=== PATIENT | female | born 1945 | race Caucasian/White ===

== ENCOUNTER 2018-06-15 17:35 | Inpatient (IN) | payer MEDICARE, BC ==
[~2018-06-15] VITALS: Ht 160 cm; Wt 63.3 kg
[~2018-06-15 17:35] MED LIST: ASPI-482 PO; CYAN10005 PO; CYCL5TAB PO; EZET10TA18 PO; FISH1CAP PO; LOSA50TA7 PO; METF850T8 PO; OMEP40CA5 PO; SAXA5TAB PO; TRAM50TA PO
[2018-06-15] MEDS ORDERED: ONDANSETRON PF 4 MG/2 ML VIAL. IV ONE (20:15)
[2018-06-15] MEDS ORDERED: KETOROLAC 15 MG/ML VIAL. IV ONE (20:15)
[2018-06-15] MEDS ORDERED: FAMOTIDINE 20 MG/2 ML VIAL IVP ONE (20:15)
[2018-06-15] MEDS ORDERED: IV NORMAL SALINE 1000ML BAG 1,000 ML IV ONE (20:15)
[2018-06-15 20:20] LABS: BASO % 0 % (0-3); EOS # 0.1 x10^3/uL (0.0-0.7); EOS % 1 % (0-3); HEMATOCRIT 36.1 % (36.0-47.0); HEMOGLOBIN 12.6 g/dL (12.0-15.5); LYMPH # 0.4 x10^3/uL (1.0-4.8); LYMPH % 4 % (24-48); MEAN CORPUSCULAR HEMOGLOBIN 31 pg (25-35); MEAN CORPUSCULAR HGB CONC 35 g/dL (31-37); MEAN CORPUSCULAR VOLUME 87 fL (79-100); MONO # 0.6 x10^3/uL (0.0-1.1); MONO % 6 % (0-9); NEUT # 8.8 x10^3uL (1.8-7.7); NEUT % 89 % (31-73); PLATELET COUNT 263 x10^3/uL (140-400); RED BLOOD COUNT 4.13 x10^6/uL (3.50-5.40); RED CELL DISTRIBUTION WIDTH 13.3 % (11.5-14.5)
[2018-06-15 20:28] LABS: CALCIUM 9.6 mg/dL (8.5-10.1); CREATININE 1.2 mg/dL (0.6-1.0); GFR 44.3; POTASSIUM 4.7 mmol/L (3.5-5.1)
[2018-06-15 20:29] LABS: PROTHROMBIN TIME PATIENT 13.3 SEC (11.7-14.0)
[2018-06-15 20:34] LABS: ALBUMIN 3.9 g/dL (3.4-5.0); ALBUMIN/GLOBULIN RATIO 1.1 (1.0-1.7); MAGNESIUM 1.7 mg/dL (1.8-2.4); TOTAL BILIRUBIN 0.3 mg/dL (0.2-1.0); TOTAL PROTEIN 7.5 g/dL (6.4-8.2)
[2018-06-15 20:42] LABS: CREATINE KINASE 36 U/L (26-192)
--- NOTE | 2018-06-15 20:51 | RAD ---
PQRS Compliance statement: One or more of the following individualized dose reduction techniques were utilized for this examination: 1. Automated exposure control. 2. Adjustment of the mA and/or kV according to patient size. 3. Use of iterative reconstruction technique. Indication:rt flank and rlq pain, vomiting, no priors TECHNIQUE: CT abdomen and pelvis without IV contrast with multiplanar reformats. COMPARISON: None FINDINGS: Limited evaluation of solid abdominal and pelvic organs due to lack of IV contrast. Heart is normal in size. No pericardial or pleural effusion. Motion artifact is seen in the lung bases limiting optimal evaluation. Mild subsegmental atelectasis in the left lung base. Noncontrast appearance of the liver, spleen, gallbladder, pancreas, adrenals are within normal limits. No nephrolithiasis or hydronephrosis. No free pelvic fluid or ascites. No bowel obstruction. Normal appendix. No right lower quadrant inflammatory changes. Anteverted uterus. Urinary bladder demonstrates no radiopaque stones. No suspicious bony lesion. There is prominent lobulated appearance of the left interpolar kidney. IMPRESSION: Limited evaluation of solid abdominal and pelvic organs due to lack of IV contrast. 1. No nephrolithiasis or hydronephrosis. 2. No bowel obstruction. Normal appendix. No right lower quadrant inflammatory changes. 3. Lobulated appearance of the interpolar left kidney, nonspecific. Underlying mass should be ruled out. Nonemergent ultrasound of the kidneys recommended. Electronically signed by: David Tubbs DO (06/15/2018 8:47 PM) [facility]
[2018-06-15 21:20] LABS: % BANDS 5 % (0-9); % LYMPHS 1 % (24-48); % MONOS 5 % (0-10); % SEGS 89 % (35-66); PLT ESTIMATE ADEQUATE (ADEQUATE)
--- NOTE | 2018-06-15 22:03 | PHYS DOC ---
Past Medical History Past Medical History: Unknown Past Surgical History: Tonsillectomy Additional Past Surgical Histo: BREAST BIOPSY Alcohol Use: None Drug Use: None Adult General Chief Complaint Chief Complaint: NAUSEA/VOMITING/DIARRHA HPI HPI Patient is a 73 year old [f__sex] who presents with [] Review of Systems Review of Systems Constitutional: Denies fever or chills [] Eyes: Denies change in visual acuity, redness, or eye pain [] HENT: Denies nasal congestion or sore throat [] Respiratory: Denies cough or shortness of breath [] Cardiovascular: No additional information not addressed in HPI [] GI: Denies abdominal pain, nausea, vomiting, bloody stools or diarrhea [] : Denies dysuria or hematuria [] Musculoskeletal: Denies back pain or joint pain [] Integument: Denies rash or skin lesions [] Neurologic: Denies headache, focal weakness or sensory changes [] Endocrine: Denies polyuria or polydipsia [] All other systems were reviewed and found to be within normal limits, except as documented in this note. Current Medications Current Medications Current Medications Medications (Trade) Dose Ordered Sig/John Start Time Stop Time Status Last Admin Dose Admin Ceftriaxone Sodium 50 ml @ 100 mls/hr 1X ONCE 06/15/18 23:00 06/15/18 23:29 Famotidine (Pepcid Vial) 20 mg 1X ONCE 06/15/18 20:15 06/15/18 20:18 DC 06/15/18 21:00 20 MG Ketorolac Tromethamine (Toradol 15mg Vial) 15 mg 1X ONCE 06/15/18 20:15 06/15/18 20:18 DC 06/15/18 21:00 15 MG Ondansetron HCl (Zofran) 4 mg 1X ONCE 06/15/18 20:15 06/15/18 20:18 DC 06/15/18 20:59 4 MG Sodium Chloride 1,000 ml @ 1,000 mls/hr 1X ONCE 06/15/18 20:15 06/15/18 21:14 DC 06/15/18 20:59 1,000 MLS/HR Allergies Allergies Allergies Coded Allergies Type Severity Reaction Last Updated Verified mercury (elemental) Allergy Intermediate 05/13/17 Yes Physical Exam Physical Exam Constitutional: Well developed, well nourished, no acute distress, non-toxic appearance. [] HENT: Normocephalic, atraumatic, bilateral external ears normal, oropharynx moist, no oral exudates, nose normal. [] Eyes: PERRLA, EOMI, conjunctiva normal, no discharge. [] Neck: Normal range of motion, no tenderness, supple, no stridor. [] Cardiovascular:Heart rate regular rhythm, no murmur [] Lungs & Thorax: Bilateral breath sounds clear to auscultation [] Abdomen: Bowel sounds normal, soft, no tenderness, no masses, no pulsatile masses. [] Skin: Warm, dry, no erythema, no rash. [] Back: No tenderness, no CVA tenderness. [] Extremities: No tenderness, no cyanosis, no clubbing, ROM intact, no edema. [] Neurologic: Alert and oriented X 3, normal motor function, normal sensory function, no focal deficits noted. [] Psychologic: Affect normal, judgement normal, mood normal. [] Current Patient Data Vital Signs Vital Signs Date Time Temp Pulse Resp B/P (MAP) Pulse Ox O2 Delivery O2 Flow Rate FiO2 06/15/18 19:51 98.7 87 18 138/80 (99) 99 Room Air 98.7 Lab Values Laboratory Tests Test 06/15/18 19:32 06/15/18 19:49 Urine Collection Type Unknown Urine Color Yellow Urine Clarity Clear Urine pH 5.5 Urine Specific [place] 1.025 Urine Protein Negative mg/dL (NEG-TRACE) Urine Glucose (UA) Negative mg/dL (NEG) Urine Ketones (Stick) 40 mg/dL (NEG) Urine Blood Negative (NEG) Urine Nitrite Negative (NEG) Urine Bilirubin Negative (NEG) Urine Urobilinogen Dipstick 0.2 mg/dL (0.2 mg/dL) Urine Leukocyte Esterase Negative (NEG) Urine RBC 0 /HPF (0-2) Urine WBC 5-10 /HPF (0-4) Urine Squamous Epithelial Cells Few /LPF Urine Bacteria 0 /HPF (0-FEW) Urine Hyaline Casts Few /HPF Urine Mucus Mod /LPF White Blood Count 10.0 x10^3/uL (4.0-11.0) Red Blood Count 4.13 x10^6/uL (3.50-5.40) Hemoglobin 12.6 g/dL (12.0-15.5) Hematocrit 36.1 % (36.0-47.0) Mean Corpuscular Volume 87 fL (79-100) Mean Corpuscular Hemoglobin 31 pg (25-35) Mean Corpuscular Hemoglobin Concent 35 g/dL (31-37) Red Cell Distribution Width 13.3 % (11.5-14.5) Platelet Count 263 x10^3/uL (140-400) Neutrophils (%) (Auto) 89 % (31-73) H Lymphocytes (%) (Auto) 4 % (24-48) L Monocytes (%) (Auto) 6 % (0-9) Eosinophils (%) (Auto) 1 % (0-3) Basophils (%) (Auto) 0 % (0-3) Neutrophils # (Auto) 8.8 x10^3uL (1.8-7.7) H Lymphocytes # (Auto) 0.4 x10^3/uL (1.0-4.8) L Monocytes # (Auto) 0.6 x10^3/uL (0.0-1.1) Eosinophils # (Auto) 0.1 x10^3/uL (0.0-0.7) Basophils # (Auto) 0.0 x10^3/uL (0.0-0.2) Segmented Neutrophils % 89 % (35-66) H Band Neutrophils % 5 % (0-9) Lymphocytes % 1 % (24-48) L Monocytes % 5 % (0-10) Platelet Estimate Adequate (ADEQUATE) Prothrombin Time 13.3 SEC (11.7-14.0) Prothrombin Time INR 1.1 (0.8-1.1) PTT 24 SEC (24-38) Sodium Level 130 mmol/L (136-145) L Potassium Level 4.7 mmol/L (3.5-5.1) Chloride Level 93 mmol/L (98-107) L Carbon Dioxide Level 22 mmol/L (21-32) Anion Gap 15 (6-14) H Blood Urea Nitrogen 28 mg/dL (7-20) H Creatinine 1.2 mg/dL (0.6-1.0) H Estimated GFR (Cockcroft-Gault) 44.3 BUN/Creatinine Ratio 23 (6-20) H Glucose Level 157 mg/dL (70-99) H Calcium Level 9.6 mg/dL (8.5-10.1) Magnesium Level 1.7 mg/dL (1.8-2.4) L Total Bilirubin 0.3 mg/dL (0.2-1.0) Aspartate Amino Transferase (AST) 15 U/L (15-37) Alanine Aminotransferase (ALT) 22 U/L (14-59) Alkaline Phosphatase 75 U/L (46-116) Creatine Kinase 36 U/L (26-192) Creatine Kinase MB (Mass) 0.7 ng/mL (0.0-3.6) Creatine Kinase MB Relative Index % (0-4) Total Protein 7.5 g/dL (6.4-8.2) Albumin 3.9 g/dL (3.4-5.0) Albumin/Globulin Ratio 1.1 (1.0-1.7) Lipase 76 U/L (73-393) Laboratory Tests 06/15/18 19:49 Laboratory Tests 06/15/18 19:49 EKG EKG [] Radiology/Procedures Radiology/Procedures PROCEDURE: CT ABDOMEN PELVIS WO CONTRAST PQRS Compliance statement: One or more of the following individualized dose reduction techniques were utilized for this examination: 1. Automated exposure control. 2. Adjustment of the mA and/or kV according to patient size. 3. Use of iterative reconstruction technique. Indication:rt flank and rlq pain, vomiting, no priors TECHNIQUE: CT abdomen and pelvis without IV contrast with multiplanar reformats. COMPARISON: None FINDINGS: Limited evaluation of solid abdominal and pelvic organs due to lack of IV contrast. Heart is normal in size. No pericardial or pleural effusion. Motion artifact is seen in the lung bases limiting optimal evaluation. Mild subsegmental atelectasis in the left lung base. Noncontrast appearance of the liver, spleen, gallbladder, pancreas, adrenals are within normal limits. No nephrolithiasis or hydronephrosis. No free pelvic fluid or ascites. No bowel obstruction. Normal appendix. No right lower quadrant inflammatory changes. Anteverted uterus. Urinary bladder demonstrates no radiopaque stones. No suspicious bony lesion. There is prominent lobulated appearance of the left interpolar kidney. IMPRESSION: Limited evaluation of solid abdominal and pelvic organs due to lack of IV contrast. 1. No nephrolithiasis or hydronephrosis. 2. No bowel obstruction. Normal appendix. No right lower quadrant inflammatory changes. 3. Lobulated appearance of the interpolar left kidney, nonspecific. Underlying mass should be ruled out. Nonemergent ultrasound of the kidneys recommended. Electronically signed by: David Tubbs DO (06/15/2018 8:47 PM) [facility] Course & Med Decision Making Course & Med Decision Making Pertinent Labs and Imaging studies reviewed. (See chart for details) [] Dragon Disclaimer Dragon Disclaimer This electronic medical record was generated, in whole or in part, using a voice recognition dictation system. Departure Departure Impression: Primary Impression: Right flank pain Additional Impressions: Hyponatremia Acute renal insufficiency History of UTI Disposition: ADMITTED INPATIENT Admitting Physician: Dontrell Curtis Condition: STABLE Referrals: DONTRELL CURTIS MD (PCP) Problem Qualifiers MIRLANDE CHAKRABORTY DO Jun 15, 2018 22:03
[2018-06-15 22:12] LABS: BILIRUBIN,URINE NEGATIVE (NEG); CLARITY,URINE CLEAR; COLOR,URINE YELLOW; NITRITE,URINE NEGATIVE (NEG); PH,URINE 5.5; PROTEIN,URINE NEGATIVE (NEG-TRACE); UROBILINOGEN,URINE 0.2 mg/dL (0.2 mg/dL)
[2018-06-15 22:18] LABS: BACTERIA,URINE 0 /HPF (0-FEW); HYALINE CASTS, URINE FEW /HPF; RBC,URINE 0 /HPF (0-2); SQUAMOUS EPITHELIAL CELL,UR FEW /LPF
[2018-06-15] MEDS ORDERED: ONDANSETRON PF 4 MG/2 ML VIAL. IV PRN (22:30)
[2018-06-15 23:47] VITALS: BP 139/62
[2018-06-16] MEDS: ACETAMINOPHEN 325 MG TABLET. PO PRN ×2 (00:40→20:50)
[2018-06-16] MEDS ORDERED: C.DIFF MED SCREEN BY RX. MC ONE (02:15)
[2018-06-16 03:00] VITALS: BP 102/48
[2018-06-16] MEDS ORDERED: MULT1TAB52 PO (03:44)
[2018-06-16] MEDS ORDERED: CALC600T4 PO (03:44)
[2018-06-16] MEDS ORDERED: OMEG1CAP43 PO (03:44)
[2018-06-16 07:00] VITALS: BP 127/53
[2018-06-16] MEDS ORDERED: CHOL4POW11 PO (07:41)
[2018-06-16] MEDS ORDERED: MAGNESIUM SULFATE 1GM 100 ML IV ONE (10:30)
[2018-06-16] MEDS ORDERED: PANTOPRAZOLE 40 MG TABLET.DR. PO SCH (10:30)
[2018-06-16 11:00] VITALS: BP 145/56
[2018-06-16] MEDS ORDERED: DEXTROSE 50% 25 GM / 50ML DISP.SYRIN. IV PRN (11:00)
--- NOTE | 2018-06-16 11:05 | PDOC ---
Provider Note Provider Note Pt seen.H&P dictated. #[id number]. JAMES CURTIS MD Jun 16, 2018 11:05
[2018-06-16] MEDS: IV NORMAL SALINE 1000ML BAG 1,000 ML IV SCH ×2 (11:07→20:47)
[2018-06-16] MEDS: OMEGA-3 FATTY ACIDS/FISH OIL 1,000 MG CAPSULE. PO SCH (11:08)
[2018-06-16] MEDS: CALCIUM CARBONATE 500 MG TABLET PO SCH (11:09)
[2018-06-16] MEDS: MULTIVITAMIN with MINERAL TABLET. PO SCH (11:09)
[2018-06-16] MEDS: LOSARTAN POTASSIUM 50 MG TABLET. PO SCH (11:09)
[2018-06-16] MEDS: ASPIRIN ENTERIC COATED 81 MG TABLET.DR. PO SCH (11:09)
[2018-06-16] MEDS: EZETIMIBE 10 MG TABLET. PO SCH (11:10)
[2018-06-16] MEDS: metFORMIN 850 MG TABLET PO SCH ×2 (11:10→17:57)
--- NOTE | 2018-06-16 11:28 | HP ---
ADMIT DATE: 06/15/2018 LOCATION: [facility]. REASON FOR ADMISSION TO THE HOSPITAL: Right flank pain, urinary tract infection, not improving. HISTORY OF PRESENT ILLNESS: The patient is a 73-year-old female who was seen for a urinary tract infection 3 days ago in the office, was given Bactrim. She was not feeling well. She was having more pain in the right flank going down to the groin area, shaky, and nausea, vomiting, came to the Emergency Room. Sodium was 130. The patient was dehydrated, was given IV fluids, Rocephin and admitted to the hospital. CT scan shows some haziness in the right kidney area. PAST MEDICAL HISTORY: Has history of diabetes, hypertension, hyperlipidemia, and GERD. PAST SURGICAL HISTORY: Breast biopsy, which was negative. FAMILY HISTORY: Positive for diabetes, heart disease, Alzheimer dementia. SOCIAL HISTORY: No history of smoking, alcohol, or drug abuse. The patient is not , lives with her brother. REVIEW OF SYSTEMS: Cardiac frias, no chest pain. Has some flank pain, has nausea and vomiting, no diarrhea, no fever. Rest of the 14-system was reviewed and negative. ALLERGIES: AMOXIL, AMPICILLIN, MERCURY. THE PATIENT IS ALLERGIC TO STATINS. SHE CANNOT TOLERATE KALYAN INHIBITORS TOO. MEDICATIONS AT HOME: The patient is on aspirin 81 mg daily, calcium with vitamin D twice a day, Questran 1 packet 4 times daily, Zetia 10 mg daily, losartan 50 mg daily, metformin 850 mg 3 times daily, multivitamin daily, omega fish oil daily, omeprazole 40 mg daily. PHYSICAL EXAMINATION: GENERAL: Not in distress. VITAL SIGNS: At the time of admission show temperature 97, pulse 88, respirations 20, blood pressure 133/59, 99 on room air. HEENT: Head is atraumatic. Pupils equal. Oral cavity: No congestion. NECK: Supple. Thyroid not enlarged. JVD not elevated. CHEST: Symmetrical. CARDIOVASCULAR: S1, S2. LUNGS: Clear. ABDOMEN: Soft, some slight right flank pain, no tenderness. Bowel sounds present, no mass palpable. EXTERNAL GENITALIA: No Barajas. RECTAL: Deferred. EXTREMITIES: No calf tenderness. NEUROLOGIC: Cranial nerves intact. Power 5/5 in all extremities. LABORATORY DATA: Shows a white count of 10, hemoglobin 12, platelets 263. INR is 1.1. Electrolytes are sodium 130, potassium 4.7, chloride 93, bicarbonate 22, anion gap 15, BUN 28, creatinine 1.2, glucose 157, magnesium 1.7. LFTs were normal. Lipase was normal. Urine shows 5-10 wbc's, negative for nitrites and esterase. CT of the abdomen and pelvis, no hydronephrosis, no kidney stone, lobulated appearance of the left kidney. FINAL IMPRESSION: 1. Flank pain. 2. Urinary tract infection, treated as outpatient, not improving. 3. Nausea, vomiting. 4. Dehydration. 5. Hyponatremia. 6. Diabetes. PLAN: At this time, admit to hospital, hydrate with IV fluids, start on IV Rocephin. Urine cultures, ultrasound of the kidneys and see how the patient's condition improves. JAMES CURTIS MD DR: ISELA/meliton JOB#: [id number] / [id number]
--- NOTE | 2018-06-16 11:35 | RAD ---
Chest, 2 views, 06/16/2018: HISTORY: Right lower chest pain The heart size and pulmonary vascularity are normal. No pulmonary infiltrate is seen. There is no evidence of pleural fluid or pneumothorax. Minimal spurring is present in the spine. IMPRESSION: No acute cardiopulmonary abnormality is detected. Electronically signed by: Ed Gaviria MD (06/16/2018 11:32 AM) [facility]
[2018-06-16 11:49] LABS: CALCIUM 8.9 mg/dL (8.5-10.1); GFR 54.7; POTASSIUM 4.1 mmol/L (3.5-5.1)
[2018-06-16] MEDS: INSULIN LISPRO 300 UNITS/3 ML INSULN.PEN. SQ SCH ×2 (12:00→17:00)
[2018-06-16] MEDS ORDERED: CHOLESTYRAMINE/ASPARTAME 4 GM PACKET PO SCH (12:30)
[2018-06-16 15:00] VITALS: BP 142/58
--- NOTE | 2018-06-16 16:38 | EKG ---
[facility] [address] [place] [address] Test Date: 2018-06-16 Test Time: 16:31:47 Pat Name: EPRFECTO DOTY Department: Room: [facility] Gender: F Child Advocate: JEOVANY : 1945 Requested By: JAMES CURTIS Order Number: [id number] Reading MD: Stuart Barajas Measurements Intervals [place] Rate: 77 P: 62 TX: 152 QRS: 27 QRSD: 84 T: 54 QT: 372 QTc: 423 Interpretive Statements SINUS RHYTHM LOW LIMB LEAD VOLTAGE Electronically Signed On 06-17-2018 11:28:11 CDT by Stuart Barajas
[2018-06-16] MEDS: cefTRIAXone IV Push 1 GM VIAL. IVP SCH (17:58)
[2018-06-16 19:00] VITALS: BP 125/60
[2018-06-16] MEDS: LACTOBACILLUS RHAMNOSUS GG 1 CAPSULE. PO SCH (20:46)
[2018-06-16] MEDS ORDERED: FAMOTIDINE 20 MG TABLET. PO SCH (21:00)
[2018-06-16 23:00] VITALS: BP 116/66
[2018-06-17 03:00] VITALS: BP 107/57
[2018-06-17 07:00] VITALS: BP 142/67
[2018-06-17] MEDS: INSULIN LISPRO 300 UNITS/3 ML INSULN.PEN. SQ SCH ×3 (08:00→16:50)
--- NOTE | 2018-06-17 08:41 | RAD ---
EXAM: Renal sonogram. HISTORY: Lobulated left renal cortex on CT dated 06/15/2018. TECHNIQUE: Sonographic imaging of both kidneys was performed. COMPARISON: CT dated 06/15/2018. FINDINGS: The right kidney measures 9.3 cm [id number]. The left kidney measures 10.9 cm [id number]. There is a 2.3 cm hypoechoic mass within the lateral lower mid zone of the left kidney measuring 2.2 x 2.2 x 1.8 cm. There is no hydronephrosis. The bladder is unremarkable. IMPRESSION: 1. 2.2 cm left renal mass. This can be characterized with a dedicated renal protocol CT or MRI. 2. Otherwise, unremarkable renal sonogram. Electronically signed by: Racheal Ennis MD (06/17/2018 8:37 AM) [facility]
[2018-06-17] MEDS: ASPIRIN ENTERIC COATED 81 MG TABLET.DR. PO SCH (08:57)
[2018-06-17] MEDS: metFORMIN 850 MG TABLET PO SCH ×3 (08:57→18:14)
[2018-06-17] MEDS: CALCIUM CARBONATE 500 MG TABLET PO SCH (08:57)
[2018-06-17] MEDS: OMEGA-3 FATTY ACIDS/FISH OIL 1,000 MG CAPSULE. PO SCH (08:57)
[2018-06-17] MEDS: LACTOBACILLUS RHAMNOSUS GG 1 CAPSULE. PO SCH ×2 (08:57→20:48)
[2018-06-17] MEDS: MULTIVITAMIN with MINERAL TABLET. PO SCH (08:57)
[2018-06-17] MEDS: EZETIMIBE 10 MG TABLET. PO SCH (08:58)
[2018-06-17] MEDS: LOSARTAN POTASSIUM 50 MG TABLET. PO SCH (08:58)
--- NOTE | 2018-06-17 09:28 | PDOC ---
PROGRESS NOTES Subjective Subjective nauseated today Objective Objective Vital Signs Date Time Temp Pulse Resp B/P (MAP) Pulse Ox O2 Delivery O2 Flow Rate FiO2 06/17/18 08:58 70 107/57 06/17/18 07:00 97.9 18 97 Room Air 97.9 Intake and Output 06/17/18 07:00 Intake Total 3720 ml Output Total 1850 ml Balance 1870 ml Intake Oral 2820 ml IV Total 900 ml Output Urine Total 1850 ml Physical Exam Abdomen: Normal bowel sounds, Soft Heart: Regular rate, Normal S1, Normal S2 Extremities: No clubbing, No cyanosis General: Alert, Cooperative HEENT: Atraumatic Lungs: Clear to auscultation MUSCULOSKELETAL: No deformity Neck: Supple Neuro: Normal speech Psych/Mental Status: Mental status NL Skin: No breakdown Diagnosis Problem List Problems Medical Problems: (1) Acute renal insufficiency Status: Acute (2) History of UTI Status: Acute (3) Right flank pain Status: Acute Assessment Assessment Problems Medical Problems: (1) Acute renal insufficiency Status: Acute (2) History of UTI Status: Acute (3) Right flank pain Status: Acute FINAL IMPRESSION: 1. Flank pain Rt 2. Urinary tract infection, treated as outpatient, not improving. 3. Nausea, vomiting. 4. Dehydration. 5. Hyponatremia. 6. Diabetes. PLAN: sono kidney showed left kidney mass 2.5 cm. urine c/s pending on Rocephin wbc normal.Na131 improving. renal consult for lt kidney mass. GI consult gastritis ,start on protonix. At this time, admit to hospital, hydrate with IV fluids, start on IV Rocephin. Urine cultures, ultrasound of the kidneys and see how the patient's condition improves. Plan Plan of Care Problems Medical Problems: (1) Acute renal insufficiency Status: Acute (2) History of UTI Status: Acute (3) Right flank pain Status: Acute Comment Review of Relevant I have reviewed the following items julianna (where applicable) has been applied. Labs Laboratory Tests Test 06/16/18 11:30 06/16/18 11:39 06/16/18 16:38 06/16/18 20:08 Sodium Level 131 mmol/L (136-145) Potassium Level 4.1 mmol/L (3.5-5.1) Chloride Level 96 mmol/L (98-107) Carbon Dioxide Level 25 mmol/L (21-32) Anion Gap 10 (6-14) Blood Urea Nitrogen 20 mg/dL (7-20) Creatinine 1.0 mg/dL (0.6-1.0) Estimated GFR (Cockcroft-Gault) 54.7 Glucose Level 173 mg/dL (70-99) Calcium Level 8.9 mg/dL (8.5-10.1) Glucose (Fingerstick) 176 mg/dL (70-99) 115 mg/dL (70-99) 155 mg/dL (70-99) Test 06/17/18 07:27 Glucose (Fingerstick) 123 mg/dL (70-99) Medications Current Medications Aspirin (Ecotrin) 81 mg DAILY PO Last administered on 06/17/18at 08:57; Start at 10:30 Calcium Carbonate/ Glycine (Oscal) 1,000 mg DAILY PO Last administered on at 08:57; Start 06/16/18 at 10:30 Ceftriaxone Sodium 1 gm/ Dextrose 50 ml @ 100 mls/hr Q24H IV ; Start 06/16/18 at 18:15; Status UNV Ceftriaxone Sodium (Rocephin) 1 gm Q24H IVP Last administered on 06/16/18at 17: 58; Start 06/16/18 at 18:00 Cholestyramine Resin (Questran Light) 4 gm BIDPCLD PO ; Start 06/16/18 at 12:30 ; Stop 06/16/18 at 12:30; Status DC Dextrose (Dextrose 50%-Water Syringe) 12.5 gm PRN Q15MIN PRN IV SEE COMMENTS; Start 06/16/18 at 11:00 EZETIMIBE (Zetia) 10 mg DAILY PO Last administered on 06/17/18at 08:58; Start at 10:30 Famotidine (Pepcid) 20 mg QHS PO Last administered on 06/16/18at 20:47; Start at 21:00 Fish Oil (Fish Oil) 1,000 mg DAILY PO Last administered on 06/17/18at 08:57; Start 06/16/18 at 10:30 Insulin Human Lispro (HumaLOG) 0-7 UNITS TIDWMEALS SQ ; Start 06/16/18 at 12:00 Lactobacillus Rhamnosus (Culturelle) 1 cap BID PO Last administered on at 08:57; Start 06/16/18 at 21:00 Losartan Potassium (Cozaar) 50 mg DAILY PO Last administered on 06/17/18at 08:58 ; Start 06/16/18 at 10:30 Magnesium Sulfate/ Dextrose 100 ml @ 100 mls/hr 1X ONCE IV Last administered on 06/16/18at 11:08; Start 06/16/18 at 10:30; Stop 06/16/18 at 11:29; Status DC Metformin HCl (Glucophage) 850 mg TIDWMEALS PO Last administered on 06/17/18at 08:57; Start 06/16/18 at 12:00 Multivitamins (Thera M Plus) 1 tab DAILY PO Last administered on 06/17/18at 08: 57; Start 06/16/18 at 10:30 Pantoprazole Sodium (Protonix) 40 mg DAILYAC PO Last administered on 06/16/18at 11:09; Start 06/16/18 at 10:30; Stop 06/16/18 at 11:24; Status DC Sodium Chloride 1,000 ml @ 75 mls/hr [id number] IV Last administered on at 20:47; Start 06/16/18 at 10:15 Vitals/I & O Vital Sign - Last 24 Hours 06/16/18 06/16/18 06/16/18 06/16/18 11:00 11:09 15:00 19:00 Temp 97.9 97.8 98.3 97.9 97.8 98.3 Pulse 84 81 80 75 Resp 18 B/P (MAP) 145/56 (85) 127/53 142/58 (86) 125/60 (81) Pulse Ox 93 94 93 O2 Delivery Room Air Room Air Room Air 06/16/18 06/17/18 06/17/18 06/17/18 23:00 03:00 07:00 08:58 Temp 98.0 98.1 97.9 98.0 98.1 97.9 Pulse 71 70 71 70 Resp 18 B/P (MAP) 116/66 (83) 107/57 (74) 142/67 (92) 107/57 Pulse Ox 94 93 97 O2 Delivery Room Air Room Air Room Air Intake and Output 06/16/18 06/16/18 06/17/18 15:00 23:00 07:00 Intake Total 1220 ml 1100 ml 1400 ml Output Total 550 ml 600 ml 700 ml Balance 670 ml 500 ml 700 ml JAMES CURTIS MD Jun 17, 2018 09:28
[2018-06-17 09:35] LABS: ALBUMIN 3.2 g/dL (3.4-5.0); CALCIUM 8.5 mg/dL (8.5-10.1); CREATININE 0.7 mg/dL (0.6-1.0); GFR 82.5; POTASSIUM 3.8 mmol/L (3.5-5.1); TOTAL BILIRUBIN 0.2 mg/dL (0.2-1.0); TOTAL PROTEIN 6.5 g/dL (6.4-8.2)
--- NOTE | 2018-06-17 09:59 | PDOC2 ---
UROLOGY CONSULT Date of Consult Date of Consult DATE: 06/17/18 TIME: 09:56 Reason for Consult Reason for Consult: right flank pain, kidney mass on the left. Identification/Chief Complaint Chief Complaint right flank pain, kidney mass on the left Source Source: Caregiver, Chart review, Patient History of Present Illness Reason for Visit: This 73-year-old female was seen for a urinary tract infection 3 days ago by her PCP and was given Bactrim. She presented to the ER last night for pain in the right flank going down to the groin area. She also reports being shaky, and having nausea, vomiting, came to the Emergency Room. In the ER she was given IV fluids, Rocephin and admitted. CT scan shows some haziness in the right kidney area and a follow up US was obtained, which shows 2.2 left renal mass and no other findings. She denies a history of kidney problems or stones. Also, despite the fact that she had a UTI, she denies having dysuria, hematuria or difficulty emptying her bladder. She only knew she had UTI because her PCP got a urine sample. She has never seen a urologist to her knowledge. She reports her pain as being on the right, constant and about 4-5/10. It is much better today after medication. Her appetite today is not very good; she has only been able to eat a small amount of jello. Past Medical History Cardiovascular: HTN, Hyperlipidemia CENTRAL NERVOUS SYSTEM: Other GI: GERD Musculoskeletal: Osteoarthritis Endocrine: Diabetes Family History Family History: Alzheimer's Disease, Diabetes, Heart Disease, Hypertension, Stroke, Other Social History No ALCOHOL: none Drugs: None Current Medications Current Medications Current Medications Aspirin (Ecotrin) 81 mg DAILY PO Last administered on 06/17/18at 08:57; Start at 10:30 Calcium Carbonate/ Glycine (Oscal) 1,000 mg DAILY PO Last administered on at 08:57; Start 06/16/18 at 10:30 Ceftriaxone Sodium 1 gm/ Dextrose 50 ml @ 100 mls/hr Q24H IV ; Start 06/16/18 at 18:15; Status UNV Ceftriaxone Sodium (Rocephin) 1 gm Q24H IVP Last administered on 06/16/18at 17: 58; Start 06/16/18 at 18:00 Cholestyramine Resin (Questran Light) 4 gm BIDPCLD PO ; Start 06/16/18 at 12:30 ; Stop 06/16/18 at 12:30; Status DC Dextrose (Dextrose 50%-Water Syringe) 12.5 gm PRN Q15MIN PRN IV SEE COMMENTS; Start 06/16/18 at 11:00 EZETIMIBE (Zetia) 10 mg DAILY PO Last administered on 06/17/18at 08:58; Start at 10:30 Famotidine (Pepcid) 20 mg QHS PO Last administered on 06/16/18at 20:47; Start at 21:00 Fish Oil (Fish Oil) 1,000 mg DAILY PO Last administered on 06/17/18at 08:57; Start 06/16/18 at 10:30 Insulin Human Lispro (HumaLOG) 0-7 UNITS TIDWMEALS SQ ; Start 06/16/18 at 12:00 Lactobacillus Rhamnosus (Culturelle) 1 cap BID PO Last administered on at 08:57; Start 06/16/18 at 21:00 Losartan Potassium (Cozaar) 50 mg DAILY PO Last administered on 06/17/18at 08:58 ; Start 06/16/18 at 10:30 Magnesium Sulfate/ Dextrose 100 ml @ 100 mls/hr 1X ONCE IV Last administered on 06/16/18at 11:08; Start 06/16/18 at 10:30; Stop 06/16/18 at 11:29; Status DC Metformin HCl (Glucophage) 850 mg TIDWMEALS PO Last administered on 06/17/18at 08:57; Start 06/16/18 at 12:00 Multivitamins (Thera M Plus) 1 tab DAILY PO Last administered on 06/17/18at 08: 57; Start 06/16/18 at 10:30 Pantoprazole Sodium (Protonix) 40 mg 1X ONCE PO ; Start 06/17/18 at 10:00; Stop 06/17/18 at 10:01 Pantoprazole Sodium (Protonix) 40 mg DAILYAC PO Last administered on 06/16/18at 11:09; Start 06/16/18 at 10:30; Stop 06/16/18 at 11:24; Status DC Pantoprazole Sodium (Protonix) 40 mg DAILYAC PO ; Start 9/18/18 at 07:30 Sodium Chloride 1,000 ml @ 75 mls/hr [id number] IV Last administered on at 20:47; Start 06/16/18 at 10:15 Allergies Allergies: Coded Allergies: amoxicillin (Verified Allergy, Intermediate, 06/16/18) pt claimed she felt she could hardly swallow ampicillin (Verified Allergy, Intermediate, 06/16/18) pt doesnt remember/know her rxn. claimed her doctor told her shes allergic to ampicillin mercury (elemental) (Verified Allergy, Intermediate, 05/13/17) ROS Review Of Systems: CONSTITUTIONAL: No fever or chills EYES: No recent changes SKIN: No rash or itching CARDIOVASCULAR: No chest pain, syncope, palpitations, or edema RESPIRATORY: No SOB or cough GASTROINTESTINAL: + nausea, vomiting, abdominal pain, + flank pain NEUROLOGICAL: No headaches or weakness ENDOCRINE: No cold or heat intolerance GENITOURINARY: No urgency or frequency of urination MUSCULOSKELETAL: No back pain or joint pain LYMPHATICS: No enlarged lymph nodes PSYCHIATRIC: No anxiety or depression Physical Exam Physical Exam: General: Pleasant, no acute distress, well groomed Eyes: conjunctiva anicteric, eyes full range of motion ENT: moist oral mucosa, normal dentition Neck: Trachea midline, no masses Respiratory: unlabored breathing, not using accessory muscles, no crackles or wheezes Cardiovascular: Regular rate and rhythm, no peripheral edema Abdomen: nontender, nondistended, no hepatosplenomegaly, no masses Skin: no rashes or skin lesions on visualized skin Psych: normal mood, affect. Alert and oriented x 3. Vitals VITALS Vital Signs Date Time Temp Pulse Resp B/P (MAP) Pulse Ox O2 Delivery O2 Flow Rate FiO2 06/17/18 08:58 70 107/57 06/17/18 07:00 97.9 18 97 Room Air 97.9 Labs Labs Laboratory Tests Test 06/15/18 19:32 06/15/18 19:49 06/16/18 07:28 06/16/18 11:30 Urine Collection Type Unknown Urine Color Yellow Urine Clarity Clear Urine pH 5.5 Urine Specific Harshaw 1.025 Urine Protein Negative mg/dL (NEG-TRACE) Urine Glucose (UA) Negative mg/dL (NEG) Urine Ketones (Stick) 40 mg/dL (NEG) Urine Blood Negative (NEG) Urine Nitrite Negative (NEG) Urine Bilirubin Negative (NEG) Urine Urobilinogen Dipstick 0.2 mg/dL (0.2 mg/dL) Urine Leukocyte Esterase Negative (NEG) Urine RBC 0 /HPF (0-2) Urine WBC 5-10 /HPF (0-4) Urine Squamous Epithelial Cells Few /LPF Urine Bacteria 0 /HPF (0-FEW) Urine Hyaline Casts Few /HPF Urine Mucus Mod /LPF White Blood Count 10.0 x10^3/uL (4.0-11.0) Red Blood Count 4.13 x10^6/uL (3.50-5.40) Hemoglobin 12.6 g/dL (12.0-15.5) Hematocrit 36.1 % (36.0-47.0) Mean Corpuscular Volume 87 fL (79-100) Mean Corpuscular Hemoglobin 31 pg (25-35) Mean Corpuscular Hemoglobin Concent 35 g/dL (31-37) Red Cell Distribution Width 13.3 % (11.5-14.5) Platelet Count 263 x10^3/uL (140-400) Neutrophils (%) (Auto) 89 % (31-73) Lymphocytes (%) (Auto) 4 % (24-48) Monocytes (%) (Auto) 6 % (0-9) Eosinophils (%) (Auto) 1 % (0-3) Basophils (%) (Auto) 0 % (0-3) Neutrophils # (Auto) 8.8 x10^3uL (1.8-7.7) Lymphocytes # (Auto) 0.4 x10^3/uL (1.0-4.8) Monocytes # (Auto) 0.6 x10^3/uL (0.0-1.1) Eosinophils # (Auto) 0.1 x10^3/uL (0.0-0.7) Basophils # (Auto) 0.0 x10^3/uL (0.0-0.2) Segmented Neutrophils % 89 % (35-66) Band Neutrophils % 5 % (0-9) Lymphocytes % 1 % (24-48) Monocytes % 5 % (0-10) Platelet Estimate Adequate (ADEQUATE) Prothrombin Time 13.3 SEC (11.7-14.0) Prothromb Time International Ratio 1.1 (0.8-1.1) Activated Partial Thromboplast Time 24 SEC (24-38) Sodium Level 130 mmol/L (136-145) 131 mmol/L (136-145) Potassium Level 4.7 mmol/L (3.5-5.1) 4.1 mmol/L (3.5-5.1) Chloride Level 93 mmol/L (98-107) 96 mmol/L (98-107) Carbon Dioxide Level 22 mmol/L (21-32) 25 mmol/L (21-32) Anion Gap 15 (6-14) 10 (6-14) Blood Urea Nitrogen 28 mg/dL (7-20) 20 mg/dL (7-20) Creatinine 1.2 mg/dL (0.6-1.0) 1.0 mg/dL (0.6-1.0) Estimated GFR (Cockcroft-Gault) 44.3 54.7 BUN/Creatinine Ratio 23 (6-20) Glucose Level 157 mg/dL (70-99) 173 mg/dL (70-99) Calcium Level 9.6 mg/dL (8.5-10.1) 8.9 mg/dL (8.5-10.1) Magnesium Level 1.7 mg/dL (1.8-2.4) Total Bilirubin 0.3 mg/dL (0.2-1.0) Aspartate Amino Transf (AST/SGOT) 15 U/L (15-37) Alanine Aminotransferase (ALT/SGPT) 22 U/L (14-59) Alkaline Phosphatase 75 U/L (46-116) Creatine Kinase 36 U/L (26-192) Creatine Kinase MB (Mass) 0.7 ng/mL (0.0-3.6) Creatine Kinase MB Relative Index % (0-4) Total Protein 7.5 g/dL (6.4-8.2) Albumin 3.9 g/dL (3.4-5.0) Albumin/Globulin Ratio 1.1 (1.0-1.7) Lipase 76 U/L (73-393) Glucose (Fingerstick) 97 mg/dL (70-99) Test 06/16/18 11:39 06/16/18 16:38 06/16/18 20:08 06/17/18 07:27 Glucose (Fingerstick) 176 mg/dL (70-99) 115 mg/dL (70-99) 155 mg/dL (70-99) 123 mg/dL (70-99) Test 06/17/18 07:40 Sodium Level 131 mmol/L (136-145) Potassium Level 3.8 mmol/L (3.5-5.1) Chloride Level 97 mmol/L (98-107) Carbon Dioxide Level 23 mmol/L (21-32) Anion Gap 11 (6-14) Blood Urea Nitrogen 10 mg/dL (7-20) Creatinine 0.7 mg/dL (0.6-1.0) Estimated GFR (Cockcroft-Gault) 82.5 BUN/Creatinine Ratio 14 (6-20) Glucose Level 134 mg/dL (70-99) Calcium Level 8.5 mg/dL (8.5-10.1) Total Bilirubin 0.2 mg/dL (0.2-1.0) Aspartate Amino Transf (AST/SGOT) 13 U/L (15-37) Alanine Aminotransferase (ALT/SGPT) 20 U/L (14-59) Alkaline Phosphatase 61 U/L (46-116) Total Protein 6.5 g/dL (6.4-8.2) Albumin 3.2 g/dL (3.4-5.0) Albumin/Globulin Ratio 1.0 (1.0-1.7) Laboratory Tests Test 06/16/18 11:30 06/16/18 11:39 06/16/18 16:38 06/16/18 20:08 Sodium Level 131 mmol/L (136-145) Potassium Level 4.1 mmol/L (3.5-5.1) Chloride Level 96 mmol/L (98-107) Carbon Dioxide Level 25 mmol/L (21-32) Anion Gap 10 (6-14) Blood Urea Nitrogen 20 mg/dL (7-20) Creatinine 1.0 mg/dL (0.6-1.0) Estimated GFR (Cockcroft-Gault) 54.7 Glucose Level 173 mg/dL (70-99) Calcium Level 8.9 mg/dL (8.5-10.1) Glucose (Fingerstick) 176 mg/dL (70-99) 115 mg/dL (70-99) 155 mg/dL (70-99) Test 06/17/18 07:27 06/17/18 07:40 Glucose (Fingerstick) 123 mg/dL (70-99) Sodium Level 131 mmol/L (136-145) Potassium Level 3.8 mmol/L (3.5-5.1) Chloride Level 97 mmol/L (98-107) Carbon Dioxide Level 23 mmol/L (21-32) Anion Gap 11 (6-14) Blood Urea Nitrogen 10 mg/dL (7-20) Creatinine 0.7 mg/dL (0.6-1.0) Estimated GFR (Cockcroft-Gault) 82.5 BUN/Creatinine Ratio 14 (6-20) Glucose Level 134 mg/dL (70-99) Calcium Level 8.5 mg/dL (8.5-10.1) Total Bilirubin 0.2 mg/dL (0.2-1.0) Aspartate Amino Transf (AST/SGOT) 13 U/L (15-37) Alanine Aminotransferase (ALT/SGPT) 20 U/L (14-59) Alkaline Phosphatase 61 U/L (46-116) Total Protein 6.5 g/dL (6.4-8.2) Albumin 3.2 g/dL (3.4-5.0) Albumin/Globulin Ratio 1.0 (1.0-1.7) Images Images IMPRESSION: 1. 2.2 cm left renal mass. This can be characterized with a dedicated renal protocol CT or MRI. 2. Otherwise, unremarkable renal sonogram. Assessment/Plan Assessment/Plan No dysuria, hematuria. Urine taken in ER shows no signs of infection. Can find no urologic cause for right flank pain. Suspect musculoskeletal causes. 2.2 cm left renal mass-Will review films with supervising physician for further recommendations. A repeat CT with contrast may be in order at a later date. Will secure an office appointment for her for follow up. Kidney function normal (inspector raw quartz 0.7, BUN 10) Will follow while in house. KIMBERLY WALKER APRN Jun 17, 2018 09:59
[2018-06-17] MEDS ORDERED: PANTOPRAZOLE 40 MG TABLET.DR. PO ONE (10:00)
[2018-06-17] MEDS: ACETAMINOPHEN 325 MG TABLET. PO PRN (10:04)
[2018-06-17 11:00] VITALS: BP 154/65
--- NOTE | 2018-06-17 11:45 | PDOC2 ---
GI CONSULT Reason For Consult: N/v, abd pain, EGD HPI: HPI: 73 y/o female admitted over the weekend w/ right flank pain and concern for unresolved UTI. Tells ms a couple weeks of right flank, RUQ pain, and maybe some RLQ pain - comes and goes, can be sharp, might be aggravated by eating but not always. Some associated nausea w/ vomiting on that recurred this morning after eating jello. Decreased appetite in general. H/o heartburn on omeprazole for 3-5 years (first 40mg QHS, now 20mg BID - with pills/breakfast and before bed), typical symptom is burning in chest (not RUQ pain). Occasional dysphagia w/ pills - sometimes pass with water, sometimes coughs back up - this has not occurred for some time. No diarrhea, constipation, or bleeding including hematemesis, hematochezia, or melena. No GB, liver, or pancreas history. Believes last colonoscopy in 2009 w/ Dr. Tubbs showed hemorrhoids. Takes ASA 81mg QD. Has also been taking ibuprofen since pain began. Hgb, LFTs, and lipase WNL. Left renal mass on imaging, urology following. PMH: PMH: HTN, HLD, essential tremor, GERD, OA, DM, right breast biopsy, tonsillectomy, bilateral cataract removal FH: Family History: Other (father and brother had "throat problems") Social History: Smoke: No ALCOHOL: none Drugs: None ROS: GEN: Denies fevers, chills, sweats HEENT: Denies blurred vision, sore throat CV: Denies chest pain RESP: Denies shortness of air, cough GI: Per HPI : Denies hematuria, dysuria ENDO: ?weight loss NEURO: Denies confusion, dizziness MSK: Denies weakness, joint pain/swelling SKIN: Denies jaundice, pruritus Vitals: Vitals: Vital Signs Date Time Temp Pulse Resp B/P (MAP) Pulse Ox O2 Delivery O2 Flow Rate FiO2 06/17/18 08:58 70 107/57 06/17/18 07:00 97.9 18 97 Room Air 97.9 Labs: Labs: Laboratory Tests Test 06/16/18 11:30 06/16/18 11:39 06/16/18 16:38 06/16/18 20:08 Sodium Level 131 mmol/L (136-145) Potassium Level 4.1 mmol/L (3.5-5.1) Chloride Level 96 mmol/L (98-107) Carbon Dioxide Level 25 mmol/L (21-32) Anion Gap 10 (6-14) Blood Urea Nitrogen 20 mg/dL (7-20) Creatinine 1.0 mg/dL (0.6-1.0) Estimated GFR (Cockcroft-Gault) 54.7 Glucose Level 173 mg/dL (70-99) Calcium Level 8.9 mg/dL (8.5-10.1) Glucose (Fingerstick) 176 mg/dL (70-99) 115 mg/dL (70-99) 155 mg/dL (70-99) Test 06/17/18 07:27 06/17/18 07:40 06/17/18 11:12 Glucose (Fingerstick) 123 mg/dL (70-99) 151 mg/dL (70-99) Sodium Level 131 mmol/L (136-145) Potassium Level 3.8 mmol/L (3.5-5.1) Chloride Level 97 mmol/L (98-107) Carbon Dioxide Level 23 mmol/L (21-32) Anion Gap 11 (6-14) Blood Urea Nitrogen 10 mg/dL (7-20) Creatinine 0.7 mg/dL (0.6-1.0) Estimated GFR (Cockcroft-Gault) 82.5 BUN/Creatinine Ratio 14 (6-20) Glucose Level 134 mg/dL (70-99) Calcium Level 8.5 mg/dL (8.5-10.1) Total Bilirubin 0.2 mg/dL (0.2-1.0) Aspartate Amino Transf (AST/SGOT) 13 U/L (15-37) Alanine Aminotransferase (ALT/SGPT) 20 U/L (14-59) Alkaline Phosphatase 61 U/L (46-116) Total Protein 6.5 g/dL (6.4-8.2) Albumin 3.2 g/dL (3.4-5.0) Albumin/Globulin Ratio 1.0 (1.0-1.7) Allergies: Coded Allergies: amoxicillin (Verified Allergy, Intermediate, 06/16/18) pt claimed she felt she could hardly swallow ampicillin (Verified Allergy, Intermediate, 06/16/18) pt doesnt remember/know her rxn. claimed her doctor told her shes allergic to ampicillin mercury (elemental) (Verified Allergy, Intermediate, 05/13/17) Medications: Current Medications Medications (Trade) Dose Ordered Sig/John Route PRN Reason Start Time Stop Time Status Last Admin Dose Admin Metformin HCl (Glucophage) 850 mg TIDWMEALS PO 06/16/18 12:00 06/17/18 08:57 Ceftriaxone Sodium (Rocephin) 1 gm Q24H IVP 06/16/18 18:00 06/16/18 17:58 Famotidine (Pepcid) 20 mg QHS PO 06/16/18 21:00 06/16/18 20:47 Lactobacillus Rhamnosus (Culturelle) 1 cap BID PO 06/16/18 21:00 06/17/18 08:57 Pantoprazole Sodium (Protonix) 40 mg 1X ONCE PO 06/17/18 10:00 06/17/18 10:01 DC 06/17/18 10:04 Imaging: Imaging: CT A/P w/o contrast IMPRESSION: 1. No nephrolithiasis or hydronephrosis. 2. No bowel obstruction. Normal appendix. No right lower quadrant inflammatory changes. 3. Lobulated appearance of the interpolar left kidney, nonspecific. Underlying mass should be ruled out. Nonemergent ultrasound of the kidneys recommended. CXR IMPRESSION: No acute cardiopulmonary abnormality is detected. Renal US IMPRESSION: 1. 2.2 cm left renal mass. This can be characterized with a dedicated renal protocol CT or MRI. 2. Otherwise, unremarkable renal sonogram. PE: GEN: NAD, up to chair HEENT: Atraumatic, PERRL LUNGS: CTAB HEART: RRR ABD: NABS, S/ND, right flank/rib tenderness - vague discomfort RUQ EXTREMITY: No edema SKIN: No rashes, no jaundice NEURO/PSYCH: A & O 3 A/P: A/P: Right-sided pain, n/v Left renal mass GERD - on PPI, no previous EGD -also h/o intermittent pill dysphagia CRC screen - reports last colonoscopy in 2009 NSAID use -- On H2 kendrick and PPI here - will continue PPI. Reviewed w/ Dr. Powers - can plan for EGD tomorrow. MELVIN OLMEDO Jun 17, 2018 11:45
[2018-06-17 14:57] VITALS: BP 148/64
[2018-06-17] MEDS: cefTRIAXone IV Push 1 GM VIAL. IVP SCH (18:15)
[2018-06-17] MEDS: IV NORMAL SALINE 1000ML BAG 1,000 ML IV SCH (18:16)
[2018-06-17 19:00] VITALS: BP 134/79
[2018-06-17 22:41] VITALS: BP 138/68
[2018-06-18 03:00] VITALS: BP 135/68
[2018-06-18 06:51] LABS: CALCIUM 8.4 mg/dL (8.5-10.1); CREATININE 0.7 mg/dL (0.6-1.0); GFR 82.5; POTASSIUM 3.6 mmol/L (3.5-5.1)
[2018-06-18 07:00] VITALS: BP 135/63
[2018-06-18] MEDS ORDERED: MORPHINE SULFATE 2 MG/ML VIAL. IV PRN (07:00)
[2018-06-18] MEDS ORDERED: IV RINGERS,LACTATED 1000ML 1,000 ML IV SCH ×2 (07:00→10:15)
[2018-06-18] MEDS ORDERED: LIDOCAINE 1% PF 2 ML VIAL. ID PRN ×2 (07:00→10:15)
[2018-06-18] MEDS ORDERED: PROCHLORPERAZINE 10 MG/2 ML VIAL. IV PRN (07:00)
[2018-06-18] MEDS ORDERED: fentaNYL PF VIAL 100 MCG/2 ML VIAL IV PRN ×4 (07:00→10:15)
[2018-06-18] MEDS ORDERED: HYDROmorphone 2 MG/ML VIAL IV PRN (07:00)
[2018-06-18] MEDS ORDERED: ONDANSETRON PF 4 MG/2 ML VIAL. IV PRN (07:00)
[2018-06-18 07:22] LABS: BASO % 0 % (0-3); EOS # 0.2 x10^3/uL (0.0-0.7); EOS % 5 % (0-3); HEMATOCRIT 30.7 % (36.0-47.0); HEMOGLOBIN 10.8 g/dL (12.0-15.5); LYMPH % 25 % (24-48); MEAN CORPUSCULAR HEMOGLOBIN 31 pg (25-35); MEAN CORPUSCULAR HGB CONC 35 g/dL (31-37); MEAN CORPUSCULAR VOLUME 87 fL (79-100); MONO # 0.6 x10^3/uL (0.0-1.1); MONO % 15 % (0-9); NEUT # 2.1 x10^3uL (1.8-7.7); NEUT % 54 % (31-73); PLATELET COUNT 215 x10^3/uL (140-400); RED BLOOD COUNT 3.51 x10^6/uL (3.50-5.40); RED CELL DISTRIBUTION WIDTH 12.9 % (11.5-14.5); WHITE BLOOD COUNT 3.9 x10^3/uL (4.0-11.0)
[2018-06-18] MEDS ORDERED: PANTOPRAZOLE 40 MG TABLET.DR. PO SCH (07:30)
[2018-06-18] MEDS: INSULIN LISPRO 300 UNITS/3 ML INSULN.PEN. SQ SCH ×2 (08:00→12:00)
[2018-06-18] MEDS: IV NORMAL SALINE 1000ML BAG 1,000 ML IV SCH (09:16)
[2018-06-18] MEDS ORDERED: MIDAZOLAM HCL/PF 2 MG/2 ML VIAL. IV PRN (10:15)
--- NOTE | 2018-06-18 10:29 | PDOC ---
PROGRESS NOTES Subjective Subjective feels better today Objective Objective Vital Signs Date Time Temp Pulse Resp B/P (MAP) Pulse Ox O2 Delivery O2 Flow Rate FiO2 06/18/18 08:00 Room Air 06/18/18 07:00 97.8 79 18 135/63 (87) 96 97.8 Intake and Output 06/18/18 07:00 Intake Total 1950 ml Output Total 600 ml Balance 1350 ml Intake Oral 1950 ml Output Urine Total 600 ml # Voids 4 # Bowel Movements 1 Physical Exam Abdomen: Normal bowel sounds, Soft Heart: Regular rate, Normal S1, Normal S2 Extremities: No clubbing, No cyanosis General: Alert, Cooperative HEENT: Atraumatic Lungs: Clear to auscultation MUSCULOSKELETAL: No deformity Neck: Supple Neuro: Normal speech Psych/Mental Status: Mental status NL Skin: No breakdown Diagnosis Problem List Problems Medical Problems: (1) Acute renal insufficiency Status: Acute (2) History of UTI Status: Acute (3) Right flank pain Status: Acute Assessment Assessment Problems Medical Problems: (1) Acute renal insufficiency Status: Acute (2) History of UTI Status: Acute (3) Right flank pain Status: Acute FINAL IMPRESSION: 1. Flank pain Rt improved 2. Urinary tract infection, treated as outpatient, not improving. 3. Nausea, vomiting. 4. Dehydration. 5. Hyponatremia. 6. Diabetes. PLAN: EGD today,possible d/c later today or am sono kidney showed left kidney mass 2.5 cm. urine c/s klebsella on Rocephin, sensitive wbc normal.Na131 improving. renal consult for lt kidney mass.f/u out pt GI consult gastritis ,start on protonix.EGD today At this time, admit to hospital, hydrate with IV fluids, start on IV Rocephin. Urine cultures, ultrasound of the kidneys and see how the patient's condition improves. Plan Plan of Care Problems Medical Problems: (1) Acute renal insufficiency Status: Acute (2) History of UTI Status: Acute (3) Right flank pain Status: Acute Comment Review of Relevant I have reviewed the following items julianna (where applicable) has been applied. Labs Laboratory Tests Test 06/17/18 11:12 06/17/18 16:05 06/17/18 20:37 06/18/18 05:40 Glucose (Fingerstick) 151 mg/dL (70-99) 130 mg/dL (70-99) 130 mg/dL (70-99) White Blood Count 3.9 x10^3/uL (4.0-11.0) Red Blood Count 3.51 x10^6/uL (3.50-5.40) Hemoglobin 10.8 g/dL (12.0-15.5) Hematocrit 30.7 % (36.0-47.0) Mean Corpuscular Volume 87 fL (79-100) Mean Corpuscular Hemoglobin 31 pg (25-35) Mean Corpuscular Hemoglobin Concent 35 g/dL (31-37) Red Cell Distribution Width 12.9 % (11.5-14.5) Platelet Count 215 x10^3/uL (140-400) Neutrophils (%) (Auto) 54 % (31-73) Lymphocytes (%) (Auto) 25 % (24-48) Monocytes (%) (Auto) 15 % (0-9) Eosinophils (%) (Auto) 5 % (0-3) Basophils (%) (Auto) 0 % (0-3) Neutrophils # (Auto) 2.1 x10^3uL (1.8-7.7) Lymphocytes # (Auto) 1.0 x10^3/uL (1.0-4.8) Monocytes # (Auto) 0.6 x10^3/uL (0.0-1.1) Eosinophils # (Auto) 0.2 x10^3/uL (0.0-0.7) Basophils # (Auto) 0.0 x10^3/uL (0.0-0.2) Sodium Level 135 mmol/L (136-145) Potassium Level 3.6 mmol/L (3.5-5.1) Chloride Level 102 mmol/L (98-107) Carbon Dioxide Level 23 mmol/L (21-32) Anion Gap 10 (6-14) Blood Urea Nitrogen 6 mg/dL (7-20) Creatinine 0.7 mg/dL (0.6-1.0) Estimated GFR (Cockcroft-Gault) 82.5 Glucose Level 116 mg/dL (70-99) Calcium Level 8.4 mg/dL (8.5-10.1) Test 06/18/18 07:33 Glucose (Fingerstick) 116 mg/dL (70-99) Microbiology 06/15/18 Urine Culture - Final, Complete 06/15/18 Urine Culture Result 1 (YAMILE) - Final, Complete Medications Current Medications Fentanyl Citrate (Fentanyl 2ml Vial) 25 mcg PRN Q5MIN PRN IV MILD PAIN; Start 06/18/18 at 07:00; Stop 06/18/18 at 21:00 Fentanyl Citrate (Fentanyl 2ml Vial) 25 mcg PRN Q5MIN PRN IV X 2 DOSES FOR PAIN ; Start 06/18/18 at 10:15; Stop 06/19/18 at 10:14 Fentanyl Citrate (Fentanyl 2ml Vial) 50 mcg PRN Q5MIN PRN IV MODERATE TO SEVERE PAIN; Start 06/18/18 at 07:00; Stop 06/18/18 at 21:00 Fentanyl Citrate (Fentanyl 2ml Vial) 50 mcg PRN Q5MIN PRN IV X 2 DOSES FOR PAIN ; Start 06/18/18 at 10:15; Stop 06/19/18 at 10:14 Hydromorphone HCl (Dilaudid) 0.5 mg PRN Q10MIN PRN IV SEV PAIN, Second choice; Start 06/18/18 at 07:00; Stop 06/18/18 at 21:00 Lidocaine HCl (Xylocaine-Mpf 1% 2ml Vial) 2 ml 1X PRN PRN ID IV START; Start at 10:15; Stop 06/19/18 at 10:14 Lidocaine HCl (Xylocaine-Mpf 1% 2ml Vial) 2 ml PRN 1X PRN ID IV START; Start at 07:00; Stop 06/18/18 at 21:00 Midazolam HCl (Versed) 2 mg PRN 1X PRN IV PRIOR TO PROCEDURE; Start 06/18/18 at 10:15; Stop 06/19/18 at 10:14 Morphine Sulfate (Morphine Sulfate) 1 mg PRN Q10MIN PRN IV SEVERE PAIN; Start 06/18/18 at 07:00; Stop 06/18/18 at 21:00 Ondansetron HCl (Zofran) 4 mg PRN Q6HRS PRN IV NAUSEA/VOMITING; Start 06/18/18 at 07:00; Stop 06/18/18 at 21:00 Pantoprazole Sodium (Protonix) 40 mg DAILYAC PO ; Start 06/18/18 at 07:30 Prochlorperazine Edisylate (Compazine) 5 mg PACU PRN PRN IV NAUSEA, MRX1; Start 06/18/18 at 07:00; Stop 06/18/18 at 21:00 Ringer's Solution 1,000 ml @ 30 mls/hr Q24H IV ; Start 06/18/18 at 07:00; Stop 06/18/18 at 18:59 Ringer's Solution 1,000 ml @ 125 mls/hr Q8H IV ; Start 06/18/18 at 10:15; Stop 06/18/18 at 22:14 Vitals/I & O Vital Sign - Last 24 Hours 06/17/18 06/17/18 06/17/18 06/17/18 11:00 14:57 19:00 20:00 Temp 97.7 97.8 98.2 97.7 97.8 98.2 Pulse 71 70 72 Resp 18 18 17 B/P (MAP) 154/65 (94) 148/64 (92) 134/79 (97) Pulse Ox 97 97 95 O2 Delivery Room Air Room Air Room Air Room Air 06/17/18 06/18/18 06/18/18 06/18/18 22:41 03:00 07:00 08:00 Temp 98.2 98.3 97.8 98.2 98.3 97.8 Pulse 74 78 79 Resp 18 17 18 B/P (MAP) 138/68 (91) 135/68 (90) 135/63 (87) Pulse Ox 96 95 96 O2 Delivery Room Air Room Air Room Air Room Air Intake and Output 06/17/18 06/17/18 06/18/18 15:00 23:00 07:00 Intake Total 770 ml 1180 ml Output Total 600 ml Balance 770 ml 580 ml JAMES CURTIS MD Jun 18, 2018 10:29
[2018-06-18] MEDS ORDERED: Pantoprazole PO (10:32)
[2018-06-18] MEDS ORDERED: CEFP200T PO (10:32)
[2018-06-18 10:47] VITALS: BP 168/76
[2018-06-18] MEDS ORDERED: PROPOFOL 20 ML IV ONE (11:38)
[2018-06-18] MEDS: metFORMIN 850 MG TABLET PO SCH ×2 (12:00→13:53)
--- NOTE | 2018-06-18 12:22 | PDOC4 ---
PROCEDURE Procedure EGD/biopsies Indication: abd pain, N, V Meds: per anesthesia Findings: E--Grade I reflux esophagitis, maybe higher grade as some mild scarring, at 36cm. G--linear erythema, antrum, biopsied. D--Normal to third portion. Gus. well. IMP: Reflux esophagitis, may contribute to symptoms. Non-specific antral erythema, biopsies pending. REC: Trial of PPI, at least 6-8 weeks. OK to dismiss. F/u biopsies. MIRLANDE ESPINOSA MD Jun 18, 2018 12:22
[2018-06-18] MEDS: CALCIUM CARBONATE 500 MG TABLET PO SCH (13:53)
[2018-06-18] MEDS: ASPIRIN ENTERIC COATED 81 MG TABLET.DR. PO SCH (13:53)
[2018-06-18] MEDS: EZETIMIBE 10 MG TABLET. PO SCH (13:53)
[2018-06-18] MEDS: OMEGA-3 FATTY ACIDS/FISH OIL 1,000 MG CAPSULE. PO SCH (13:53)
[2018-06-18] MEDS: MULTIVITAMIN with MINERAL TABLET. PO SCH (13:54)
[2018-06-18] MEDS: LACTOBACILLUS RHAMNOSUS GG 1 CAPSULE. PO SCH (13:54)
[2018-06-18] MEDS: LOSARTAN POTASSIUM 50 MG TABLET. PO SCH (13:54)
[2018-06-18 15:00] VITALS: BP 173/75
--- NOTE | 2018-06-19 17:08 | PATHOLOGY ---
[facility] Accession Number: [id number] . 01 Material submitted: . ANTRAL BIOPSY . 01 Clinical history: . Pre-OP DX: Abdominal pain, vomiting Post-OP DX: Reflux esophagitis . 02 Diagnosis: Gastric biopsies, antrum: - Chronic gastritis, mild. [facility]/06/19/2018 . 02 Comment: Sections of the gastric antral biopsy show congestion and mild chronic inflammation. A properly-controlled immunoperoxidase stain for Helicobacter is negative for Helicobacter organisms. There is no evidence of malignancy. . (JPM:mml; 06/19/18) . 02 Electronically signed: . Inderjit Bernabe MD, Pathologist NPI- [id number] . 01 Gross description: . Received in formalin labeled "Alejandro, Chasity, antral BX," are 3 segments of herring soft tissue measuring 0.9 x 0.5 x 0.2 cm in aggregate dimensions and ranging from 0.3 to 0.4 cm in maximum dimension. The specimen is submitted entirely in cassette A1. (TSD; 06/18/2018) TOB/TOB . 02 Pathologist provided ICD-10: K29.50 . 02 CPT . 780382, B39331 Specimen Comment: A courtesy copy of this report has been sent to Specimen Comment: [phone], , . Specimen Comment: Report sent to ,DR CURTIS / DR CHAKRABORTY Specimen Comment: A duplicate report has been generated due to demographic updates. Performed at: 01 [facility] [address], [place], [place] [id number] MD Markus Benavides MD Phone: [phone] Performed at: 02 [facility] [address] [place], [place] [id number] MD Inderjit Bernabe MD Phone: [phone]
--- NOTE | 2018-06-20 14:47 | PDOC ---
Provider Note Provider Note Discharge summary dictated. #[id number] JAMES CURTIS MD Jun 20, 2018 14:47
--- NOTE | 2018-06-20 15:22 | DS ---
DATE OF DISCHARGE: 06/18/2018 REASON FOR ADMISSION TO THE HOSPITAL: 1. Urinary tract infection, Klebsiella. 2. Hyponatremia. 3. Flank pain. CONSULTATIONS: 1. Urology, Kika Fairbanks, Nurse practitioner. 2. GI, Dr. Powers. PROCEDURES DONE: 1. CT of the abdomen and pelvis. 2. Ultrasound of the kidneys. 3. EGD. HOSPITAL COURSE: The patient is a 73-year-old female who had a urinary tract infection and was treated with Bactrim, but did not improve. She was having more pain with flank pain, nausea, vomiting and came to the Emergency Room. Leukocyte was elevated. Sodium was low at 130. Kidney was slightly elevated on the creatinine. She was given IV fluids, was given Rocephin. Urine culture shows Klebsiella from office, which was sensitive to Rocephin. The patient was continued on Rocephin, was given IV fluids, sodium improved to 135 and creatinine back to normal. The patient was having flank pain, had a CT scan of abdomen and pelvis and shows a left renal mass, 2.2 cm. The patient was seen by Urology. Ultrasound of the kidneys was consistent with a solid mass in the left kidney. It was recommended that the patient would need a repeat CT in 3 months. Urology going to follow up with that and the patient has no pain in the left kidney, mostly in the right flank. The patient had EGD, shows gastritis and was given Protonix. On the whole, the patient's condition improved and she was discharged. FINAL DIAGNOSES: 1. Urinary tract infection with Klebsiella. 2. Hyponatremia. 3. Gastritis and gastroesophageal reflux disease. 4. Failure of outpatient treatment for UTI. 5. Acute renal insufficiency, improved with hydration. 6. Kidney mass, 2.2 cm left kidney. Needs followup CT scan in 3 months by Urology. JAMES CURTIS MD DR: ISELA/meliton JOB#: [id number] / [id number] SAMANTHA
== END 2018-06-18 16:00 | disposition home or self-care (01) | DRG 690 ==
LOC: ER 17:35 → 5 SOUTH 22:30
PROVIDERS: ADMIT Internal Medicine; ATTEND Internal Medicine
PROC: 0DB68ZX Excision of Stomach, Via Natural or Artificial Opening Endoscopic, Diagnostic (ICD-10-PCS; principal; 2018-06-18 12:15)
DX: N39.0 Urinary tract infection, site not specified (principal); E87.1 Hypo-osmolality and hyponatremia; K29.70 Gastritis, unspecified, without bleeding; Z88.8 Allergy status to other drugs, medicaments and biological substances; M19.90 Unspecified osteoarthritis, unspecified site; E11.9 Type 2 diabetes mellitus without complications; E78.5 Hyperlipidemia, unspecified; E86.0 Dehydration; I10 Essential (primary) hypertension; K21.0 Gastro-esophageal reflux disease with esophagitis; N28.89 Other specified disorders of kidney and ureter; R13.10 Dysphagia, unspecified; Z79.82 Long term (current) use of aspirin; Z79.899 Other long term (current) drug therapy; Z82.3 Family history of stroke; Z82.0 Family history of epilepsy and other diseases of the nervous system; Z82.49 Family history of ischemic heart disease and other diseases of the circulatory system; Z87.440 Personal history of urinary (tract) infections; Z83.3 Family history of diabetes mellitus; Z88.1 Allergy status to other antibiotic agents
CPT/HCPCS: 36415; 71046; 74176; 76770; 80048; 80053; 81001; 82553; 82962; 83690; 83735; 85007; 85025; 85610; 85730; 87086; 88305; 88342; 93005; 96361; 96374; 96375; J0690; J0696; J1815; J1885; J2405; J2704; J3475; J7030; J7120; S0028; 99285-25

== ENCOUNTER → 2018-07-11 | Outpatient (CLI) | payer MEDICARE, BC ==
[2018-06-18 15:00] VITALS: BP 173/75
[~2018-07-11] MED LIST changes: +CALC600T4 PO; +CEFP200T PO; +CHOL4POW11 PO; +IOHEXOL 300 MG/ML 100ML VIAL. IV ONE; +MULT1TAB52 PO; +OMEG1CAP43 PO; +Pantoprazole PO
--- NOTE | 2018-07-11 14:12 | RAD ---
PQRS Compliance Statement: One or more of the following individualized dose reduction techniques were utilized for this examination: 1. Automated exposure control 2. Adjustment of the mA and/or kV according to patient size 3. Use of iterative reconstruction technique CT ABDOMEN WO/W CONTRAST Clinical Indication: RENAL PROTOCOL L RENAL MASS SEEN ON PRIOR IMAGING Comparison: CT abdomen and pelvis without contrast, June 15, 2018. TECHNIQUE: Helical CT imaging of the abdomen is performed before and after 75 cc Omnipaque 300 IV contrast. Postcontrast imaging performed during corticomedullary, early nephrographic, and delayed phases. Findings: No renal calculus. No filling defect in the renal pelves. No hydronephrosis. Lobulation of the lower pole of the left kidney. No renal mass is identified. There are 2 small cortical cysts in the upper pole of the left kidney. Calcified granulomas in the left lower lobe. Cardiac size normal. Liver, gallbladder, spleen, pancreas, adrenal glands, and abdominal aorta caliber are normal. Moderate stool in the visualized colon. No colon wall thickening. No dilated small bowel. Stomach unremarkable. No abdominal adenopathy or free fluid. No acute bone abnormality. IMPRESSION: There is no renal mass. Lobulation of the left kidney suggestive of dromedary hump. Electronically signed by: Tonio Pierre MD (07/11/2018 2:09 PM) [id number]
== END | disposition home or self-care (01) ==
LOC: CT 10:31
PROVIDERS: ATTEND Urology
DX: N15.8 Other specified renal tubulo-interstitial diseases (principal); N28.1 Cyst of kidney, acquired
CPT/HCPCS: 74170; Q9967

== ENCOUNTER → 2018-08-15 | Outpatient (CLI) | payer MEDICARE, BC ==
[~2018-08-15] MED LIST changes: -IOHEXOL 300 MG/ML 100ML VIAL. IV ONE
[2018-08-15 11:55] LABS: BASO % 1 % (0-3); EOS # 0.3 x10^3/uL (0.0-0.7); EOS % 5 % (0-3); HEMATOCRIT 36.6 % (36.0-47.0); HEMOGLOBIN 12.8 g/dL (12.0-15.5); LYMPH # 1.2 x10^3/uL (1.0-4.8); LYMPH % 19 % (24-48); MEAN CORPUSCULAR HEMOGLOBIN 31 pg (25-35); MEAN CORPUSCULAR HGB CONC 35 g/dL (31-37); MEAN CORPUSCULAR VOLUME 88 fL (79-100); MONO # 0.5 x10^3/uL (0.0-1.1); MONO % 9 % (0-9); NEUT # 4.1 x10^3uL (1.8-7.7); NEUT % 67 % (31-73); PLATELET COUNT 280 x10^3/uL (140-400); RED BLOOD COUNT 4.15 x10^6/uL (3.50-5.40); RED CELL DISTRIBUTION WIDTH 13.5 % (11.5-14.5); WHITE BLOOD COUNT 6.1 x10^3/uL (4.0-11.0)
[2018-08-15 11:56] LABS: ALBUMIN 3.6 g/dL (3.4-5.0); ALBUMIN/GLOBULIN RATIO 0.9 (1.0-1.7); CALCIUM 9.2 mg/dL (8.5-10.1); CREATININE 0.8 mg/dL (0.6-1.0); GFR 70.7; POTASSIUM 4.3 mmol/L (3.5-5.1); TOTAL BILIRUBIN 0.5 mg/dL (0.2-1.0); TOTAL PROTEIN 7.5 g/dL (6.4-8.2); URIC ACID 3.6 mg/dL (2.6-6.0)
[2018-08-15 18:12] LABS: CALCIUM PTH 9.7 mg/dL (8.7-10.3); CREATININE PTH 0.78 mg/dL (0.57-1.00); PHOSPHORUS PTH 3.2 mg/dL (2.5-4.5); PTH INTACT 38 pg/mL (15-65)
[2018-08-16 14:26] LABS: CERULOPLASMIN 27.9 mg/dL (19.0-39.0)
== END | disposition home or self-care (01) ==
LOC: LAB 11:16
PROVIDERS: ATTEND Psychiatry & Neurology Neurology
DX: G25.9 Extrapyramidal and movement disorder, unspecified (principal)
CPT/HCPCS: 36415; 80053; 82390; 83970; 84443; 84550; 85025

== ENCOUNTER → 2018-08-20 | Outpatient (CLI) | payer MEDICARE, BC ==
--- NOTE | 2018-08-21 13:32 | EEG ---
DATE OF SERVICE: 08/20/2018 ELECTROENCEPHALOGRAM NUMBER: [id number] OBJECTIVE: This is a 73-year-old female patient with history of abnormal movements. EEG was requested to help rule out seizure. METHODS: Twenty electrodes were applied according to the international 10-20 electrode placement system. EKG monitoring, hyperventilation, intermittent photic stimulation, monopolar and bipolar montages are routinely utilized. The record was obtained on a digital system with video monitoring. FINDINGS: 1. Background: The patient was recorded in the awake and drowsy states. No actual sleep state was recorded. The overall background amplitude is 5-15 microvolts. A posterior dominant rhythm of 8 Hz is observed. 2. Abnormalities: No specific epileptiform discharge or electrographic seizure is seen. No focal or diffuse slowing. 3. Activation: Hyperventilation was performed with good efforts and normal response. Intermittent photic stimulation was performed with photic driving. No specific epileptiform discharge or electrographic seizure induced by hyperventilation or intermittent photic stimulation. IMPRESSION: This electroencephalogram is a normal study for the awake and drowsy states. No actual sleep state was recorded. No focal, lateralizing, specific epileptiform discharge, or electrographic seizure is seen. SHANTHI WEISS MD DR: BERNARD/meliton JOB#: [id number] / [id number] SAMANTHA
== END | disposition home or self-care (01) ==
LOC: RT 07:53
PROVIDERS: ATTEND Psychiatry & Neurology Neurology
DX: G25.89 Other specified extrapyramidal and movement disorders (principal)
CPT/HCPCS: 95816

== ENCOUNTER 2018-11-10 14:18 | Emergency (ER) | payer MEDICARE, BC ==
[~2018-11-10] VITALS: Ht 160 cm; Wt 65.8 kg
[~2018-11-10 14:18] MED LIST changes: +LOSA-73 PO; -LOSA50TA7 PO
[2018-11-10] MEDS ORDERED: IV NORMAL SALINE 1000ML BAG 1,000 ML IV SCH (14:37)
--- NOTE | 2018-11-10 14:43 | PHYS DOC ---
Past Medical History Past Medical History: Unknown Past Surgical History: Tonsillectomy Additional Past Surgical Histo: BREAST BIOPSY Alcohol Use: None Drug Use: None Adult General Chief Complaint Chief Complaint: NAUSEA/VOMITING/DIARRHA HPI HPI Patient is a 73-year-old female who presents with complaint of nausea and vomiting that started yesterday. Patient states that she was recently diagnosed with urinary tract infection and had been prescribed Bactrim. Patient states that after taking the second dose of Bactrim she developed nausea and vomiting. She states that she had similar symptoms previously when she was placed on Bactrim. She denies any chest pain or shortness of breath. She also denies any fever, abdominal or back pain. Review of Systems Review of Systems Constitutional: Denies fever or chills [] Respiratory: Denies cough or shortness of breath [] Cardiovascular: No additional information not addressed in HPI [] GI: Denies abdominal pain or diarrhea. Complains of nausea and vomiting. [] Musculoskeletal: Denies back pain or joint pain [] All other systems were reviewed and found to be within normal limits, except as documented in this note. Current Medications Current Medications Current Medications Medications (Trade) Dose Ordered Sig/John Start Time Stop Time Status Last Admin Dose Admin Ondansetron HCl (Zofran) 4 mg 1X ONCE 11/10/18 14:45 11/10/18 14:46 DC 11/10/18 15:06 4 MG Sodium Chloride 1,000 ml @ 1,000 mls/hr Q1H 11/10/18 14:37 11/10/18 15:36 DC 11/10/18 15:06 1,000 MLS/HR Allergies Allergies Allergies Coded Allergies Type Severity Reaction Last Updated Verified amoxicillin Allergy Intermediate 06/18/18 Yes ampicillin Allergy Intermediate 06/18/18 Yes mercury (elemental) Allergy Intermediate 06/18/18 Yes Physical Exam Physical Exam Constitutional: Well developed, well nourished, no acute distress, non-toxic appearance. [] HENT: Normocephalic, atraumatic, bilateral external ears normal, oropharynx moist, no oral exudates, nose normal. [] Eyes: PERRLA, EOMI, conjunctiva normal, no discharge. [] Neck: Normal range of motion, no tenderness, supple, no stridor. [] Cardiovascular:Heart rate regular rhythm, no murmur [] Lungs & Thorax: Bilateral breath sounds clear to auscultation [] Abdomen: Bowel sounds normal, soft, no tenderness. [] Skin: Warm, dry, no erythema, no rash. [] Extremities: No tenderness, no cyanosis, no clubbing, ROM intact, no edema. [] Neurologic: Alert and oriented X 3, no focal deficits noted. [] Current Patient Data Vital Signs Vital Signs Date Time Temp Pulse Resp B/P (MAP) Pulse Ox O2 Delivery O2 Flow Rate FiO2 11/10/18 14:37 98.1 71 20 172/78 (109) 98 Room Air 98.1 Lab Values Laboratory Tests Test 11/10/18 14:40 11/10/18 15:50 White Blood Count 6.2 x10^3/uL (4.0-11.0) Red Blood Count 4.14 x10^6/uL (3.50-5.40) Hemoglobin 12.1 g/dL (12.0-15.5) Hematocrit 36.3 % (36.0-47.0) Mean Corpuscular Volume 88 fL (79-100) Mean Corpuscular Hemoglobin 29 pg (25-35) Mean Corpuscular Hemoglobin Concent 33 g/dL (31-37) Red Cell Distribution Width 12.8 % (11.5-14.5) Platelet Count 260 x10^3/uL (140-400) Neutrophils (%) (Auto) 83 % (31-73) H Lymphocytes (%) (Auto) 10 % (24-48) L Monocytes (%) (Auto) 7 % (0-9) Eosinophils (%) (Auto) 0 % (0-3) Basophils (%) (Auto) 0 % (0-3) Neutrophils # (Auto) 5.1 x10^3uL (1.8-7.7) Lymphocytes # (Auto) 0.6 x10^3/uL (1.0-4.8) L Monocytes # (Auto) 0.4 x10^3/uL (0.0-1.1) Eosinophils # (Auto) 0.0 x10^3/uL (0.0-0.7) Basophils # (Auto) 0.0 x10^3/uL (0.0-0.2) Sodium Level 133 mmol/L (136-145) L Potassium Level 4.6 mmol/L (3.5-5.1) Chloride Level 95 mmol/L (98-107) L Carbon Dioxide Level 25 mmol/L (21-32) Anion Gap 13 (6-14) Blood Urea Nitrogen 23 mg/dL (7-20) H Creatinine 1.1 mg/dL (0.6-1.0) H Estimated GFR (Cockcroft-Gault) 49.0 BUN/Creatinine Ratio 21 (6-20) H Glucose Level 182 mg/dL (70-99) H Calcium Level 9.4 mg/dL (8.5-10.1) Total Bilirubin 0.6 mg/dL (0.2-1.0) Aspartate Amino Transferase (AST) 15 U/L (15-37) Alanine Aminotransferase (ALT) 20 U/L (14-59) Alkaline Phosphatase 79 U/L (46-116) Total Protein 7.5 g/dL (6.4-8.2) Albumin 3.7 g/dL (3.4-5.0) Albumin/Globulin Ratio 1.0 (1.0-1.7) Urine Collection Type Unknown Urine Color Yellow Urine Clarity Clear Urine pH 6.0 Urine Specific [place] 1.025 Urine Protein 30 mg/dL (NEG-TRACE) Urine Glucose (UA) Negative mg/dL (NEG) Urine Ketones (Stick) 15 mg/dL (NEG) Urine Blood Negative (NEG) Urine Nitrite Negative (NEG) Urine Bilirubin Negative (NEG) Urine Urobilinogen Dipstick 0.2 mg/dL (0.2 mg/dL) Urine Leukocyte Esterase Moderate (NEG) Urine RBC 0 /HPF (0-2) Urine WBC 20-40 /HPF (0-4) Urine Squamous Epithelial Cells Mod /LPF Urine Bacteria Few /HPF (0-FEW) Urine Mucus Mod /LPF Laboratory Tests 11/10/18 14:40 Laboratory Tests 11/10/18 14:40 EKG EKG [] Radiology/Procedures Radiology/Procedures [] Course & Med Decision Making Course & Med Decision Making Pertinent Labs and Imaging studies reviewed. (See chart for details) [] Dragon Disclaimer Dragon Disclaimer This electronic medical record was generated, in whole or in part, using a voice recognition dictation system. Departure Departure Impression: Primary Impression: Nausea & vomiting Additional Impression: UTI (urinary tract infection) Disposition: HOME, SELF-CARE Condition: STABLE Referrals: JAMES CURTIS MD (PCP) Patient Instructions: Nausea and Vomiting, Urinary Tract Infection Scripts Nitrofurantoin Monohyd/M-Cryst (MACROBID 100 MG CAPSULE) 100 Mg Capsule 1 CAP PO BID, #14 CAP Prov: SHAWN RIVERA Jr. DO 11/10/18 Ondansetron Hcl (ZOFRAN) 4 Mg Tablet 1 TAB PO Q6HRS PRN for NAUSEA/VOMITING, #12 TAB Prov: SHAWN RIVERA Jr. DO 11/10/18 Problem Qualifiers Primary Impression: Nausea & vomiting Vomiting type: unspecified Vomiting Intractability: non-intractable Qualified Codes: R11.2 - Nausea with vomiting, unspecified Additional Impression: UTI (urinary tract infection) Urinary tract infection type: site unspecified Hematuria presence: without hematuria Qualified Codes: N39.0 - Urinary tract infection, site not specified SHAWN RIVERA Jr. DO Nov 10, 2018 14:42
[2018-11-10] MEDS ORDERED: ONDANSETRON PF 4 MG/2 ML VIAL. IV ONE (14:45)
[2018-11-10 15:08] LABS: BASO % 0 % (0-3); EOS % 0 % (0-3); HEMATOCRIT 36.3 % (36.0-47.0); HEMOGLOBIN 12.1 g/dL (12.0-15.5); LYMPH # 0.6 x10^3/uL (1.0-4.8); LYMPH % 10 % (24-48); MEAN CORPUSCULAR HEMOGLOBIN 29 pg (25-35); MEAN CORPUSCULAR HGB CONC 33 g/dL (31-37); MEAN CORPUSCULAR VOLUME 88 fL (79-100); MONO # 0.4 x10^3/uL (0.0-1.1); MONO % 7 % (0-9); NEUT # 5.1 x10^3uL (1.8-7.7); NEUT % 83 % (31-73); PLATELET COUNT 260 x10^3/uL (140-400); RED BLOOD COUNT 4.14 x10^6/uL (3.50-5.40); RED CELL DISTRIBUTION WIDTH 12.8 % (11.5-14.5); WHITE BLOOD COUNT 6.2 x10^3/uL (4.0-11.0)
[2018-11-10 15:20] LABS: CALCIUM 9.4 mg/dL (8.5-10.1); CREATININE 1.1 mg/dL (0.6-1.0); POTASSIUM 4.6 mmol/L (3.5-5.1)
[2018-11-10 15:26] LABS: ALBUMIN 3.7 g/dL (3.4-5.0); TOTAL BILIRUBIN 0.6 mg/dL (0.2-1.0); TOTAL PROTEIN 7.5 g/dL (6.4-8.2)
[2018-11-10 16:17] LABS: BILIRUBIN,URINE NEGATIVE (NEG); CLARITY,URINE CLEAR; COLOR,URINE YELLOW; NITRITE,URINE NEGATIVE (NEG); PROTEIN,URINE 30 mg/dL (NEG-TRACE); UROBILINOGEN,URINE 0.2 mg/dL (0.2 mg/dL)
[2018-11-10 16:41] LABS: BACTERIA,URINE FEW /HPF (0-FEW); RBC,URINE 0 /HPF (0-2); SQUAMOUS EPITHELIAL CELL,UR MOD /LPF; WBC,URINE 20-40 /HPF (0-4)
[2018-11-10] MEDS ORDERED: NITR100C62 PO (16:58)
[2018-11-10] MEDS ORDERED: ONDA4TAB7 PO (16:58)
[2018-11-10 17:00] VITALS: BP 143/63
== END 2018-11-10 17:16 | disposition home or self-care (01) ==
LOC: ER 14:18
DX: N39.0 Urinary tract infection, site not specified (principal); R11.2 Nausea with vomiting, unspecified; Z88.1 Allergy status to other antibiotic agents; Z88.8 Allergy status to other drugs, medicaments and biological substances
CPT/HCPCS: 36415; 80053; 81001; 85025; 87086; 96361; 96374; 99283; J2405; J7030

== ENCOUNTER 2019-02-12 09:28 | Day surgery (SDC) | payer MEDICARE, BC ==
[~2019-02-12] VITALS: Ht 160 cm; Wt 65.0 kg
[~2019-02-12 09:28] MED LIST changes: +CIPROFLOXACIN 200MG PREMIX 100 ML IV PRN; +CIPROFLOXACIN 400MG PREMIX 200 ML IV PRN; +GABA600T7 PO; +HYDROmorphone 2 MG/ML VIAL IV PRN; +IV RINGERS,LACTATED 1000ML 1,000 ML IV SCH; +METO-239 PO; +MORPHINE SULFATE 2 MG/ML VIAL. IV PRN; +NITR100C62 PO; +ONDA4TAB7 PO; +ONDANSETRON PF 4 MG/2 ML VIAL. IV PRN; +PROCHLORPERAZINE 10 MG/2 ML VIAL. IV PRN; +fentaNYL PF VIAL 100 MCG/2 ML VIAL IV PRN
[2019-02-12] MEDS ORDERED: DEXAMETHASONE SOD PHOS 4 MG/ML VIAL ONE (10:26)
[2019-02-12] MEDS ORDERED: PROPOFOL 20 ML IV ONE (10:26)
[2019-02-12] MEDS ORDERED: LIDOCAINE 2% PF 5 ML VIAL. ONE (10:26)
[2019-02-12] MEDS ORDERED: fentaNYL PF VIAL 100 MCG/2 ML VIAL ONE (10:26)
[2019-02-12] MEDS ORDERED: ONDANSETRON PF 4 MG/2 ML VIAL. ONE (10:26)
[2019-02-12] MEDS ORDERED: ePHEDrine PF IN SALINE 50 MG/10 ML SYRINGE. IV ONE (11:06)
--- NOTE | 2019-02-12 11:25 | PDOC4 ---
OPERATIVE NOTE Date: Date: February 12, 2019 Pre-Op Diagnosis: bt Post-Op Diagnosis: same Procedure Performed: turbt Surgeon: Bridget Camargo MD Anesthesia Type: GA Blood Loss: 0ML Specimans Obtained: bt Findings: RIGHT LATERAL WALL bt Complications: NONE evident BRIDGET CAMARGO MD February 12, 2019 11:25
[2019-02-12] MEDS ORDERED: SEVOFLURANE 16 TO 30 MINUTES. IH ONE (11:28)
--- NOTE | 2019-02-12 11:29 | DISCH ---
DISCHARGE INSTRUCTIONS Condition on Discharge Condition on Discharge: Stable Activity After Discharge Activity Instructions for Disc: Activity as tolerated Driving Instructions after Dis: Do not drive today Weight Bearing Status after Di: As tolerated Diet after Discharge Diet after Discharge: Regular, Diabetic No Calorie Level Diet Texture: Regular Liquid Texture: Thin Liquid Swallowing Supervision: None needed Wound Incision Care Wound/Incision Care: No wound care needed Checks after Discharge Checks after discharge: Check blood sugar, ac/hs Contacting the DR. after DC Call your doctor for: Concerns you may have Follow-Up Follow up with: 2 weeks Treatment/Equipment after DC Adaptive Equipment Issued: BRAVO Bardales MD February 12, 2019 11:29
--- NOTE | 2019-02-12 11:44 | OP ---
DATE OF SURGERY: 02/12/2019 PREOPERATIVE DIAGNOSIS: Bladder tumor. POSTOPERATIVE DIAGNOSIS: Bladder tumor. PROCEDURE: TURBT. CONDITION: Stable. COMPLICATIONS: None. ESTIMATED BLOOD LOSS: Zero. FINDINGS: Right lateral wall tumor 1-2 cm, removed completely; no evidence of any satellite lesions; no evidence of involvement of ureteral orifice, trigone or bladder neck. DESCRIPTION OF PROCEDURE : The patient was taken back to the procedure room and placed under general anesthesia in supine position, prepped and draped in the usual sterile fashion in the dorsal lithotomy position. Timeout performed. SCDs were attached. IV antibiotics were administered. A 26-Dominican continuous flow resectoscope was placed per urethra into the bladder. Electro loop was used to remove the tumor completely. Pinpoint hemostasis was obtained with cautery. Fragments were removed and sent for final pathology where on final inspection, we had good hemostasis and complete tumor removal. The patient was awakened and taken to the PACU in stable condition. DISPOSITION: We will send her home today with nafe-koh-frunsiz Tylenol or ibuprofen. She will follow up with me in 2 weeks for path results. BRAVO PRADHAN MD DR: KARLY/meliton JOB#: [id number] / [id number] SAMANTHA
[2019-02-12] MEDS ORDERED: ISOFLURANE 16 TO 30 MINUTES. IH ONE (11:46)
[2019-02-12 13:00] VITALS: BP 143/58
--- NOTE | 2019-02-18 17:06 | PATHOLOGY ---
[facility] Accession Number: [id number] . 01 Material submitted: . bladder - BLADDER TUMOR . 01 Clinical history: . Bladder tumor . 02 Diagnosis: Bladder tumor: - NONINVASIVE UROTHELIAL CARCINOMA, LOW GRADE, WITH EXTENSIVE INVERTED GROWTH PATTERN. - Minimal benign smooth muscle present. See comment. (RHEA:yvonne; 02/17/2019) QMS/02/17/2019 . 02 Comment: The tissue fragments show prominent nests of low-grade urothelial carcinoma showing an extensive predominant inverted growth pattern without definite invasive features seen, although some fragments are limited by cauterization changes. Minimal benign muscularis mucosae as well as deeper foci of benign smooth muscle, also possibly representing muscularis mucosae are seen, without definite muscularis propria identified. Reviewed with Dr. Jorje Eden, who agrees with the diagnosis. (RHEA:yvonne; 02/17/2019) . 02 Electronically signed: . Robinson Solorzano MD, Pathologist NPI- [id number] . 01 Gross description: . The specimen is received in formalin, labeled "Chasity Allen, bladder tumor", are four irregular fragments of herring rubbery soft tissue measuring 1.3 x 0.7 x 0.2 cm in aggregate. The largest fragment is serially sectioned. The specimen is entirely submitted in A1. ([facility]; 02/12/2019) . . . . SHS/SHS . 02 Pathologist provided ICD-10: C67.9 . 02 CPT . 152888 Specimen Comment: A courtesy copy of this report has been sent to Specimen Comment: [phone], . Specimen Comment: Report sent to Specimen Comment: Report sent to / DR CURTIS Performed at: [address] [place] [address] [facility] [address], [place], [place] [id number] MD Markus Benavides MD Phone: [phone] Performed at: [address] [facility] [address] [place] [id number] MD Robinson Solorzano MD Phone: [phone]
== END 2019-02-12 13:17 | disposition home or self-care (01) ==
LOC: SURG 09:28
PROVIDERS: ATTEND Urology
DX: C67.9 Malignant neoplasm of bladder, unspecified (principal); Z88.1 Allergy status to other antibiotic agents; Z88.8 Allergy status to other drugs, medicaments and biological substances; Z79.82 Long term (current) use of aspirin; Z98.49 Cataract extraction status, unspecified eye; Z98.890 Other specified postprocedural states; Z72.89 Other problems related to lifestyle; Z87.440 Personal history of urinary (tract) infections; Z96.1 Presence of intraocular lens
CPT/HCPCS: 52234; 88307; A7015; J0171; J0744; J1100; J2001; J2405; J2704; J3010

== ENCOUNTER → 2019-03-10 | Outpatient (CLI) | payer MEDICARE, BC ==
[2019-02-12 13:00] VITALS: BP 143/58
[~2019-03-10] MED LIST changes: -CIPROFLOXACIN 200MG PREMIX 100 ML IV PRN; -CIPROFLOXACIN 400MG PREMIX 200 ML IV PRN; +CYAN-25 PO; -CYAN10005 PO; -EZET10TA18 PO; +EZET10TA20 PO; -HYDROmorphone 2 MG/ML VIAL IV PRN; -IV RINGERS,LACTATED 1000ML 1,000 ML IV SCH; -MORPHINE SULFATE 2 MG/ML VIAL. IV PRN; -ONDANSETRON PF 4 MG/2 ML VIAL. IV PRN; -PROCHLORPERAZINE 10 MG/2 ML VIAL. IV PRN; -fentaNYL PF VIAL 100 MCG/2 ML VIAL IV PRN
== END | disposition home or self-care (01) ==
LOC: LAB 16:00
PROVIDERS: ATTEND Psychiatry & Neurology Neurology
DX: G25.9 Extrapyramidal and movement disorder, unspecified (principal)
CPT/HCPCS: 36415; 82306; 82607; 82652

== ENCOUNTER 2020-05-28 18:23 | Inpatient (IN) | payer MEDICARE, BC ==
[~2020-05-28] VITALS: Ht 167.6 cm; Wt 60.4 kg
[~2020-05-28 18:23] MED LIST changes: -CALC600T4 PO; +CALC600T6 PO; +MULT-445 PO; -MULT1TAB52 PO; +OMEP40CA45 PO; -OMEP40CA5 PO
[2020-05-28] MEDS ORDERED: ONDANSETRON ODT 4 MG TAB.RAPDIS. PO ONE (20:30)
[2020-05-28 20:50] LABS: BASO # 0.1 x10^3/uL (0.0-0.2); BASO % 0 % (0-3); EOS % 0 % (0-3); HEMATOCRIT 36.8 % (36.0-47.0); HEMOGLOBIN 12.3 g/dL (12.0-15.5); LYMPH # 0.8 x10^3/uL (1.0-4.8); LYMPH % 7 % (24-48); MEAN CORPUSCULAR HEMOGLOBIN 29 pg (25-35); MEAN CORPUSCULAR HGB CONC 33 g/dL (31-37); MEAN CORPUSCULAR VOLUME 86 fL (79-100); MONO # 0.5 x10^3/uL (0.0-1.1); MONO % 5 % (0-9); NEUT # 10.7 x10^3/uL (1.8-7.7); NEUT % 88 % (31-73); PLATELET COUNT 250 x10^3/uL (140-400); RED BLOOD COUNT 4.26 x10^6/uL (3.50-5.40); RED CELL DISTRIBUTION WIDTH 13.4 % (11.5-14.5); WHITE BLOOD COUNT 12.1 x10^3/uL (4.0-11.0)
[2020-05-28 21:08] LABS: CALCIUM 8.9 mg/dL (8.5-10.1); CREATININE 0.9 mg/dL (0.6-1.0); GFR 61.4; POTASSIUM 4.9 mmol/L (3.5-5.1)
[2020-05-28 21:09] LABS: SALIC < 2.8 mg/dL (2.8-20.0)
--- NOTE | 2020-05-28 21:15 | PHYS DOC ---
Past Medical History Past Medical History: Diabetes-Type II, GERD, High Cholesterol, Hypertension Past Surgical History: Tonsillectomy Additional Past Surgical Histo: BREAST BIOPSY Smoking Status: Never Smoker Alcohol Use: None Drug Use: None General Adult EDM: Chief Complaint: DIZZY/LIGHT HEADED HPI: HPI: The history was obtained from the patient and brother. Patient is a 75-year-old female with PMH hypertension, hyperlipidemia, GERD who presents with a chief complaint of dizziness. Patient states she began having vertiginous and lightheadedness symptoms 7 hours prior to arrival. States the symptoms began when she went from a seated to a standing position. She states they began suddenly. Mother states that the patient has been unsteady on her feet. He states she did fall to ground once and vomited when she hit the ground. She denies striking her head. She does state that she takes a baby aspirin daily. Denies any other blood thinner usage. Denies any weakness in one extremity. Brother denies any signs of confusion or aphasia or dysarthria. Denies any facial asymmetry. Patient does note some mild ringing in the ears. She denies any neck pain. She does note it is still difficult ambulate. Denies any chest pain or shortness of breath. Denies fevers or cough. Review of Systems: Review of Systems: Constitutional: Denies fever or chills. [] Eyes: Denies change in visual acuity. [] HENT: Denies nasal congestion or sore throat. [] Respiratory: Denies cough or shortness of breath. [] Cardiovascular: Denies chest pain or edema. [] GI: Positive for vomiting : Denies dysuria. [] Musculoskeletal: Denies back pain or joint pain. [] Integument: Denies rash. [] Neurologic: Positive for dizziness Endocrine: Denies polyuria or polydipsia. [] Lymphatic: Denies swollen glands. [] Psychiatric: Denies depression or anxiety. [] Heart Score: Risk Factors: Risk Factors: DM, Current or recent (<one month) smoker, HTN, HLP, family history of CAD, obesity. Risk Scores: Score 0 - 3: 2.5% MACE over next 6 weeks - Discharge Home Score 4 - 6: 20.3% MACE over next 6 weeks - Admit for Clinical Observation Score 7 - 10: 72.7% MACE over next 6 weeks - Early Invasive Strategies Current Medications: Current Medications Medications (Trade) Dose Ordered Sig/John Start Time Stop Time Status Last Admin Dose Admin Ondansetron HCl (Zofran Odt) 4 mg 1X ONCE 05/28/20 20:30 05/28/20 20:31 DC 05/28/20 20:57 4 MG Allergies: Allergies: Allergies Coded Allergies Type Severity Reaction Last Updated Verified amoxicillin Allergy Intermediate 02/10/19 Yes ampicillin Allergy Intermediate 06/18/18 Yes mercury (elemental) Allergy Intermediate 06/18/18 Yes Physical Exam: PE: Constitutional: Well developed, well nourished, no acute distress, non-toxic appearance. [] HENT: Normocephalic, atraumatic, bilateral external ears normal, oropharynx moist, no oral exudates, nose normal. [] Eyes: PERRLA, EOMI, conjunctiva normal, no discharge. [] Neck: Normal range of motion, no tenderness, supple, no stridor. [] Cardiovascular:Heart rate regular rhythm, no murmur [] Lungs & Thorax: Bilateral breath sounds clear to auscultation [] Abdomen: soft, no tenderness, no masses, no pulsatile masses. [] Skin: Warm, dry, no erythema, no rash. [] Back: No tenderness, no CVA tenderness. [] Extremities: No tenderness, no cyanosis, no clubbing, ROM intact, no edema. [] Neurologic: Alert with intact cognitive function. No aphasia, dysarthria, or neglect. GCS 15. Pupils 3 mm briskly reactive b/l. No APD present. Cranial nerves 2-12 grossly intact; no facial asymmetry present, tongue midline, shoulder shrugging strength intact. Strength 5/5 and symmetric throughout. Light touch sensation intact throughout. Cerebellar testing appropriate without evidence of dysdiadochokinesia. DTR's 2+ in all 4 extremities. Negative pronator drift bilaterally. Gait deferred Psychologic: Affect normal, judgement normal, mood normal. [] 1A: Level of consciousness Alert and keenly responsive 0 Arouses to minor stimulation +1 Requires repeated stimulation to arouse +2 Movements to pain +2 Postures are unresponsive +3 1B: Ask month and age Both questions correct 0 1 question right +1 0 questions were +2 Dysarthric/intubated/trauma/language barrier +1 Aphasic + 2 1C: "Blink eyes and squeeze hands" Performs both tasks 0 Performs one task +1 Perform 0 tasks +2 2: Horizontal extraocular movements Normal 0 Partial gaze palsy: Can be overcome +1 Partial gaze palsy: Corrects with oculocephalic reflex +1 Forced gaze palsy: Cannot be overcome +2 3: Visual mendoza No visual loss 0 Partial hemianopia +1 Complete hemianopia +2 Patient is bilaterally blind +3 Bilateral hemianopsia +3 4: Facial palsy Normal symmetry 0 Minor paralysis +1 Partial paralysis + 2 Unilateral complete paralysis +3 Bilateral complete paralysis +3 5A: Left arm motor drift No drift for 10 seconds 0 Drift, but does not hit bed + 1 Drift, hits bed + 2 Some effort against gravity +2 No effort against gravity +3 No movement +4 Amputation/joint fusion 0 5B: Right arm motor drift No drift for 10 seconds 0 Drift, but does not hit bed + 1 Drift, hits bed + 2 Some effort against gravity +2 No effort against gravity +3 No movement +4 Amputation/joint fusion 0 6A: Left leg motor drift No drift for 10 seconds 0 Drift, but does not hit bed + 1 Drift, hits bed + 2 Some effort against gravity +2 No effort against gravity +3 No movement +4 Amputation/joint fusion 0 6B: Right leg motor drift No drift for 10 seconds 0 Drift, but does not hit bed + 1 Drift, hits bed + 2 Some effort against gravity +2 No effort against gravity +3 No movement +4 Amputation/joint fusion 0 7: Limb ataxia No ataxia 0 Ataxia in one limb +1 Ataxia in 2 limbs +2 Does not understand 0 Paralyzed 0 Amputation/joint fusion 0 8: Sensation Normal; no sensory loss 0 Mild to moderate loss +1 Complete loss +2 No response and quadriplegic +2 Coma unresponsive +2 9: Language/aphasia Normal; no aphasia 0 Mild to moderate aphasia +1 Severe aphasia + 2 Mute/global aphasia +3 Coma/unresponsive +3 10: Dysarthria Normal 0 Mild to moderate dysarthria +1 Severe dysarthria +2 Mute/anrthric +2 Intubated/unable to test 0 11: Extinction No abnormality 0 Visual/tactile/auditory/spatial/personal inattention +1 Extinction to bilateral simultaneous stimulus +1 Profound stephen-inattention +2 Extinction to greater than 1 modality +2 Current Patient Data: Labs: Laboratory Tests Test 8/28/20 20:40 White Blood Count 12.1 x10^3/uL (4.0-11.0) H Red Blood Count 4.26 x10^6/uL (3.50-5.40) Hemoglobin 12.3 g/dL (12.0-15.5) Hematocrit 36.8 % (36.0-47.0) Mean Corpuscular Volume 86 fL (79-100) Mean Corpuscular Hemoglobin 29 pg (25-35) Mean Corpuscular Hemoglobin Concent 33 g/dL (31-37) Red Cell Distribution Width 13.4 % (11.5-14.5) Platelet Count 250 x10^3/uL (140-400) Neutrophils (%) (Auto) 88 % (31-73) H Lymphocytes (%) (Auto) 7 % (24-48) L Monocytes (%) (Auto) 5 % (0-9) Eosinophils (%) (Auto) 0 % (0-3) Basophils (%) (Auto) 0 % (0-3) Neutrophils # (Auto) 10.7 x10^3/uL (1.8-7.7) H Lymphocytes # (Auto) 0.8 x10^3/uL (1.0-4.8) L Monocytes # (Auto) 0.5 x10^3/uL (0.0-1.1) Eosinophils # (Auto) 0.0 x10^3/uL (0.0-0.7) Basophils # (Auto) 0.1 x10^3/uL (0.0-0.2) Platelet Estimate Pending Sodium Level 130 mmol/L (136-145) L Potassium Level 4.9 mmol/L (3.5-5.1) Chloride Level 96 mmol/L (98-107) L Carbon Dioxide Level 24 mmol/L (21-32) Anion Gap 10 (6-14) Blood Urea Nitrogen 22 mg/dL (7-20) H Creatinine 0.9 mg/dL (0.6-1.0) Estimated GFR (Cockcroft-Gault) 61.4 Glucose Level 164 mg/dL (70-99) H Calcium Level 8.9 mg/dL (8.5-10.1) Salicylates Level < 2.8 mg/dL (2.8-20.0) L Salicylate Last Dose Date Unknown Salicylate Last Dose Time Unknown Laboratory Tests 05/28/20 20:40 Laboratory Tests 05/28/20 20:40 Vital Signs: Vital Signs Date Time Temp Pulse Resp B/P (MAP) Pulse Ox O2 Delivery O2 Flow Rate FiO2 05/28/20 19:40 66 18 174/79 (110) 98 Room Air EKG: EKG: EKG consistent with normal sinus rhythm. Ventricular rate of 68 bpm. [place] normal. Intervals normal. Slight artifact noted. No acute ST segment elevation appreciated. Overall similar to EKG from June 16, 2018. [] Radiology/Procedures: Radiology/Procedures: [address] [id number] IMAGING REPORT Signed PATIENT: PERFECTO DOTY ACCOUNT: [id number] : 1945 LOCATION: ER AGE: 75 SEX: F EXAM STATUS: REG ER ORD. PHYSICIAN: LAQUITA EHRZOG DO REASON: dizziness, FALL PROCEDURE: CT HEAD WO CONTRAST CT HEAD WO CONTRAST History: Reason: dizziness, FALL / Spl. Instructions: / History: Comparison: None. Technique: Noncontrast CT imaging was performed of the head. Exposure: One or more of the following individualized dose reduction techniques were utilized for this examination: 1. Automated exposure control 2. Adjustment of the mA and/or kV according to patient size 3. Use of iterative reconstruction technique. Findings: Hypoattenuation within the left posterior superior and posterior inferior cerebellum (series 4 image 31). No significant mass effect. No acute intracranial hemorrhage. No mass effect. No hydrocephalus. Mild foci of decreased attenuation within the hemispheric white matter, most often due to chronic microvascular ischemia. Imaged orbits are unremarkable. Imaged paranasal sinuses and mastoid air cells are clear. No acute calvarial fracture. Impression: 1. Left cerebellar hypoattenuation, concerning for acute to subacute infarct. Recommend MRI to further evaluate. Electronically signed by: Cristofer Ramos DO (05/28/2020 10:19 PM) [facility] DICTATED and SIGNED BY: CRISTOFER RAMOS DO DATE: 05/28/20 2219 [][address] [id number] IMAGING REPORT Signed PATIENT: PERFECTO DOTY ACCOUNT: [id number] : 1945 LOCATION: ER AGE: 75 SEX: F EXAM STATUS: REG ER ORD. PHYSICIAN: LAQUITA HERZOG DO REASON: dizziness, OMNI 300, 75 ML IV PROCEDURE: CT ANGIOGRAPHY HEAD AND NECK Exam: CTA head and neck INDICATION: Dizziness TECHNIQUE: Sequential axial images through the head and neck obtained following the administration of 75 mL of Omni 300 IV contrast. Sagittal and coronal reformatted images were reconstructed from the axial data and reviewed. 3-D reformatted images were reconstructed from the axial data and reviewed. Comparisons: CT head without contrast same day FINDINGS: CTA NECK: Visualized portions of the thoracic aorta are unremarkable. There is a two-vessel aortic arch configuration with common origin of the brachycephalic and left common carotid arteries. Right common carotid artery is patent without evidence of stenosis, occlusion or aneurysm. Cervical segment of the right internal carotid artery is patent without evidence of stenosis, occlusion or aneurysm. Left common carotid artery is patent without evidence of stenosis, occlusion or aneurysm. Cervical segment of the left internal carotid artery is patent without evidence of stenosis, occlusion or aneurysm. Right vertebral artery is patent to the basilar confluence without evidence of stenosis, occlusion or aneurysm. Left vertebral artery is patent to basilar confluence without evidence of stenosis, occlusion or aneurysm. Visualized soft tissues are unremarkable. CTA HEAD: Intracranial segments of the right internal carotid artery are patent without evidence of stenosis, occlusion or aneurysm. Right MCA is patent. Right ROMA is patent. Intracranial segments of the left internal carotid artery are patent without evidence of stenosis, occlusion or aneurysm. Left MCA is patent. Left ROMA is patent. Basilar artery is patent without evidence of stenosis, occlusion or aneurysm. [place] are patent bilaterally. IMPRESSION: 1. No large vessel occlusion. 2. Patent intracranial and cervical arterial vasculature without evidence of stenosis, occlusion or aneurysm. Exposure: One or more of the following in the visualized dose reduction techniques were utilized for this examination: 1. Automated exposure control 2. Adjustment of the MA and/or KV according to patient size 3. Use of iterative of reconstructive technique Electronically signed by: Rebekah Yarbrough MD (05/28/2020 11:13 PM) [id number] DICTATED and SIGNED BY: REBEKAH YARBROUGH MD DATE: 05/28/20 2313 Course & Med Decision Making: Course & Med Decision Making Pertinent Labs and Imaging studies reviewed. (See chart for details) Patient is a 75-year-old female who presents with chief complaint of dizziness lightheadedness throughout the day. Initial vital signs grossly markable. NIH score initially 0. Remainder physical exam noted above. CT imaging does reveal concern for acute versus subacute infarct. This may explain her symptoms. Patient is outside of the TPA window and her current symptoms in my opinion do not necessitate TPA administration. Patient was given the remainder of a full dose aspirin as she did take baby aspirin earlier today. Her neurologic exam is remained stable while in the emergency department. She will require hospitalization for further work-up. Dragon Disclaimer: Dragon Disclaimer: This electronic medical record was generated, in whole or in part, using a voice recognition dictation system. Departure Departure Impression: Primary Impression: CVA (cerebral vascular accident) Qualified Codes: I63.9 - Cerebral infarction, unspecified Additional Impressions: Hypertension Qualified Codes: I10 - Essential (primary) hypertension Hyperlipidemia Qualified Codes: E78.5 - Hyperlipidemia, unspecified Diabetes Qualified Codes: E13.69 - Other specified diabetes mellitus with other specified complication GERD (gastroesophageal reflux disease) Qualified Codes: K21.9 - Gastro-esophageal reflux disease without esophagitis Referrals: JAMES CURTIS MD (PCP) Justicifation of Admission Dx: Justifications for Admission: Justification of Admission Dx: Yes Stroke - Ischemic: Stroke-Ischemic LAQIUTA HERZOG DO May 28, 2020 21:15
[2020-05-28] MEDS ORDERED: CONTRAST GIVEN. MC PRN (21:45)
[2020-05-28] MEDS ORDERED: IOHEXOL 300 MG/ML 100ML VIAL. IV ONE (22:00)
[2020-05-28 22:18] LABS: % BANDS 9 % (0-9); % LYMPHS 12 % (24-48); % MONOS 4 % (0-10); % SEGS 75 % (35-66); PLT ESTIMATE ADEQUATE (ADEQUATE)
--- NOTE | 2020-05-28 22:22 | RAD ---
CT HEAD WO CONTRAST History: Reason: dizziness, FALL / Spl. Instructions: / History: Comparison: None. Technique: Noncontrast CT imaging was performed of the head. Exposure: One or more of the following individualized dose reduction techniques were utilized for this examination: 1. Automated exposure control 2. Adjustment of the mA and/or kV according to patient size 3. Use of iterative reconstruction technique. Findings: Hypoattenuation within the left posterior superior and posterior inferior cerebellum (series 4 image 31). No significant mass effect. No acute intracranial hemorrhage. No mass effect. No hydrocephalus. Mild foci of decreased attenuation within the hemispheric white matter, most often due to chronic microvascular ischemia. Imaged orbits are unremarkable. Imaged paranasal sinuses and mastoid air cells are clear. No acute calvarial fracture. Impression: 1. Left cerebellar hypoattenuation, concerning for acute to subacute infarct. Recommend MRI to further evaluate. Electronically signed by: Cristofer Ramos DO (05/28/2020 10:19 PM) [facility]
[2020-05-28] MEDS ORDERED: ASPIRIN CHEWABLE 81 MG TABLET. PO ONE (23:00)
--- NOTE | 2020-05-28 23:16 | RAD ---
Exam: CTA head and neck INDICATION: Dizziness TECHNIQUE: Sequential axial images through the head and neck obtained following the administration of 75 mL of Omni 300 IV contrast. Sagittal and coronal reformatted images were reconstructed from the axial data and reviewed. 3-D reformatted images were reconstructed from the axial data and reviewed. Comparisons: CT head without contrast same day FINDINGS: CTA NECK: Visualized portions of the thoracic aorta are unremarkable. There is a two-vessel aortic arch configuration with common origin of the brachycephalic and left common carotid arteries. Right common carotid artery is patent without evidence of stenosis, occlusion or aneurysm. Cervical segment of the right internal carotid artery is patent without evidence of stenosis, occlusion or aneurysm. Left common carotid artery is patent without evidence of stenosis, occlusion or aneurysm. Cervical segment of the left internal carotid artery is patent without evidence of stenosis, occlusion or aneurysm. Right vertebral artery is patent to the basilar confluence without evidence of stenosis, occlusion or aneurysm. Left vertebral artery is patent to basilar confluence without evidence of stenosis, occlusion or aneurysm. Visualized soft tissues are unremarkable. CTA HEAD: Intracranial segments of the right internal carotid artery are patent without evidence of stenosis, occlusion or aneurysm. Right MCA is patent. Right ROMA is patent. Intracranial segments of the left internal carotid artery are patent without evidence of stenosis, occlusion or aneurysm. Left MCA is patent. Left ROMA is patent. Basilar artery is patent without evidence of stenosis, occlusion or aneurysm. vocational rehabilitation counselor are patent bilaterally. IMPRESSION: 1. No large vessel occlusion. 2. Patent intracranial and cervical arterial vasculature without evidence of stenosis, occlusion or aneurysm. Exposure: One or more of the following in the visualized dose reduction techniques were utilized for this examination: 1. Automated exposure control 2. Adjustment of the MA and/or KV according to patient size 3. Use of iterative of reconstructive technique Electronically signed by: Rebekah Valentin MD (05/28/2020 11:13 PM) [id number]
[2020-05-28] MEDS ORDERED: ONDANSETRON PF 4 MG/2 ML VIAL. IV PRN (23:30)
[2020-05-28 23:57] LABS: BILIRUBIN,URINE NEGATIVE (NEG); CLARITY,URINE CLEAR; COLOR,URINE YELLOW; NITRITE,URINE NEGATIVE (NEG); PH,URINE 6.5 (<5.0-8.0); PROTEIN,URINE NEGATIVE (NEG-TRACE); UROBILINOGEN,URINE 0.2 mg/dL (0.2 mg/dL)
[2020-05-29 00:27] LABS: BACTERIA,URINE FEW /HPF (0-FEW); SQUAMOUS EPITHELIAL CELL,UR FEW /LPF
[2020-05-29 09:18] LABS: BASO % 0 % (0-3); EOS % 1 % (0-3); HEMATOCRIT 33.4 % (36.0-47.0); HEMOGLOBIN 11.6 g/dL (12.0-15.5); LYMPH # 0.9 x10^3/uL (1.0-4.8); LYMPH % 13 % (24-48); MEAN CORPUSCULAR HEMOGLOBIN 30 pg (25-35); MEAN CORPUSCULAR HGB CONC 35 g/dL (31-37); MEAN CORPUSCULAR VOLUME 86 fL (79-100); MONO # 0.7 x10^3/uL (0.0-1.1); MONO % 10 % (0-9); NEUT # 5.7 x10^3/uL (1.8-7.7); NEUT % 77 % (31-73); PLATELET COUNT 239 x10^3/uL (140-400); RED BLOOD COUNT 3.88 x10^6/uL (3.50-5.40); RED CELL DISTRIBUTION WIDTH 13.5 % (11.5-14.5); WHITE BLOOD COUNT 7.4 x10^3/uL (4.0-11.0)
[2020-05-29 09:23] LABS: CALCIUM 8.2 mg/dL (8.5-10.1); CREATININE 0.8 mg/dL (0.6-1.0); GFR 70.3; POTASSIUM 4.4 mmol/L (3.5-5.1)
[2020-05-29 11:55] VITALS: BP 186/76
--- NOTE | 2020-05-29 12:08 | PDOC1 ---
History and Physical Date of Service: DOS: DATE: 05/29/20 TIME: 11:50 Chief Complaint: Chief Complain: NOTE ENTERED IN ERROR. PLEASE REMVOE FROM RECORD Allergies: Allergies: Coded Allergies: amoxicillin (Verified Allergy, Intermediate, 02/10/19) pt claimed she felt she could hardly swallow ampicillin (Verified Allergy, Intermediate, 06/18/18) pt doesnt remember/know her rxn. claimed her doctor told her shes allergic to ampicillin mercury (elemental) (Verified Allergy, Intermediate, 06/18/18) Labs: Labs: Laboratory Tests Test 05/28/20 20:40 05/28/20 23:40 05/29/20 05:55 05/29/20 10:29 White Blood Count 12.1 x10^3/uL (4.0-11.0) 7.4 x10^3/uL (4.0-11.0) Red Blood Count 4.26 x10^6/uL (3.50-5.40) 3.88 x10^6/uL (3.50-5.40) Hemoglobin 12.3 g/dL (12.0-15.5) 11.6 g/dL (12.0-15.5) Hematocrit 36.8 % (36.0-47.0) 33.4 % (36.0-47.0) Mean Corpuscular Volume 86 fL (79-100) 86 fL (79-100) Mean Corpuscular Hemoglobin 29 pg (25-35) 30 pg (25-35) Mean Corpuscular Hemoglobin Concent 33 g/dL (31-37) 35 g/dL (31-37) Red Cell Distribution Width 13.4 % (11.5-14.5) 13.5 % (11.5-14.5) Platelet Count 250 x10^3/uL (140-400) 239 x10^3/uL (140-400) Neutrophils (%) (Auto) 88 % (31-73) 77 % (31-73) Lymphocytes (%) (Auto) 7 % (24-48) 13 % (24-48) Monocytes (%) (Auto) 5 % (0-9) 10 % (0-9) Eosinophils (%) (Auto) 0 % (0-3) 1 % (0-3) Basophils (%) (Auto) 0 % (0-3) 0 % (0-3) Neutrophils # (Auto) 10.7 x10^3/uL (1.8-7.7) 5.7 x10^3/uL (1.8-7.7) Lymphocytes # (Auto) 0.8 x10^3/uL (1.0-4.8) 0.9 x10^3/uL (1.0-4.8) Monocytes # (Auto) 0.5 x10^3/uL (0.0-1.1) 0.7 x10^3/uL (0.0-1.1) Eosinophils # (Auto) 0.0 x10^3/uL (0.0-0.7) 0.0 x10^3/uL (0.0-0.7) Basophils # (Auto) 0.1 x10^3/uL (0.0-0.2) 0.0 x10^3/uL (0.0-0.2) Segmented Neutrophils % 75 % (35-66) Band Neutrophils % 9 % (0-9) Lymphocytes % 12 % (24-48) Monocytes % 4 % (0-10) Platelet Estimate Adequate (ADEQUATE) Sodium Level 130 mmol/L (136-145) 132 mmol/L (136-145) Potassium Level 4.9 mmol/L (3.5-5.1) 4.4 mmol/L (3.5-5.1) Chloride Level 96 mmol/L (98-107) 97 mmol/L (98-107) Carbon Dioxide Level 24 mmol/L (21-32) 28 mmol/L (21-32) Calcium Leve Troponin I Quantitative 0.040 ng/mL (0.000-0.055) 0.022 ng/mL (0.000-0.055) Salicylates Level < 2.8 mg/dL (2.8-20.0) Salicylate Last Dose Date Unknown Salicylate Last Dose Time Unknown Urine Collection Type Unknown Urine Color Yellow Urine Clarity Clear Urine pH 6.5 (<5.0-8.0) Urine Specific [place] >=1.030 (1.000-1.030) Urine Protein Negative mg/dL (NEG-TRACE) Urine Glucose (UA) Negative mg/dL (NEG) Urine Ketones (Stick) Negative mg/dL (NEG) Urine Blood Negative (NEG) Urine Nitrite Negative (NEG) Urine Bilirubin Negative (NEG) Urine Urobilinogen Dipstick 0.2 mg/dL (0.2 mg/dL) Urine Leukocyte Esterase Negative (NEG) Urine RBC 1-2 /HPF (0-2) Urine WBC 1-4 /HPF (0-4) Urine Squamous Epithelial Cells Few /LPF Urine Bacteria Few /HPF (0-FEW) Glucose (Fingerstick) 128 mg/dL (70-99) Justifications for Admission Other Justification ELLA DODSON MD May 29, 2020 12:08
[2020-05-29] MEDS ORDERED: DEXTROSE 50% 25 GM / 50ML DISP.SYRIN. IV PRN (12:15)
[2020-05-29] MEDS: CETIRIZINE HCL 10 MG TABLET. PO SCH (13:07)
[2020-05-29] MEDS: ASPIRIN ENTERIC COATED 81 MG TABLET.DR. PO SCH (13:08)
[2020-05-29] MEDS ORDERED: hydrALAZINE 20 MG/ML VIAL. IVP PRN (13:15)
--- NOTE | 2020-05-29 13:32 | HP ---
ADMIT DATE: HISTORY OF PRESENT ILLNESS: This 75 years old female was doing fine the day before, but yesterday when she was sitting and she got up, she became extremely dizzy and unsteady and the room started spinning and she fell down. She vomited once. She did not have any seizures, but had a near syncopal episode. She denied any chest pains, palpitations, dyspnea. She does have some allergy symptoms and some sneezing. Because of the severity of the episode she was brought to the Emergency Room. In the Emergency Room, she was evaluated. The patient did not have any aphasia or any focal signs or symptoms of any neurovascular deficit. She did not have any extremity weakness, dysphagia, speech difficulty, loss of consciousness. She has a history of essential tremors that are unchanged. In the Emergency Room, CT scan of head showed a left cerebellar hypoattenuation, concerning for acute to subacute infarct. CT of the neck and head were unremarkable. No large vessel occlusion noted. Laboratory findings showed initially WBC count was 12.1, but today WBC count is 7.4. Hemoglobin 12.3, decreased to 11.6 today. Sodium 130, yesterday, it was 132. Today glucose 164 and 124, potassium 4.9, BUN 22 and creatinine 0.9. Urinalysis was negative. Because of the possibility of acute CVA, the patient was admitted for further evaluation and management. REVIEW OF SYSTEMS: At present time, the patient's dizziness is improving. She has some allergy symptoms. She has occasional fullness of the ears. She denies any neck pain, chest pains, palpitations, dyspnea. No nausea or vomiting this morning. Other systems reviewed and are negative. PAST MEDICAL HISTORY: Her last admission was here in 06/2018. She is known to have history of diabetes, hypertension, hyperlipidemia, gastroesophageal reflux disease. Admission in 06/2018 was for UTI. The patient has a history of essential tremors. PAST SURGICAL HISTORY: Includes breast biopsy, which was negative. FAMILY HISTORY: Positive for diabetes, heart disease, Alzheimer's disease. SOCIAL HISTORY: No history of smoking, alcoholism or drug abuse. The patient lives with her brother. ALLERGIES: THE PATIENT IS ALLERGIC TO AMOXICILLIN, AMPICILLIN, MERCURY. PATIENT IS ALLERGIC TO STATINS. SHE DOES NOT TOLERATE KALYAN INHIBITORS ALSO. MEDICATIONS: Reviewed and reconciled. PHYSICAL EXAMINATION: GENERAL: The patient is an elderly female who is alert, oriented and not in acute distress. VITAL SIGNS: Temperature 97.8, pulse 66 per minute, respirations 18 per minute, blood pressure 174/79 mmHg. The pulse did decrease up to 42 per minute. The patient is alert, oriented, not in acute distress. HEENT: Unremarkable. NECK: Supple. JVP normal. No carotid bruit. Trachea midline. LUNGS: Clear. CARDIOVASCULAR: S1, S2 regular. ABDOMEN: Soft, nontender, no guarding, no rigidity. Bowel sounds present. EXTREMITIES: No edema, no cyanosis, no calf tenderness. CENTRAL NERVOUS SYSTEM: The patient has bilateral upper extremity tremors. No focal neurovascular deficit. Gait not tested. LABORATORY FINDINGS: As noted earlier. IMPRESSION: 1. Acute versus subacute cerebellar cerebrovascular accident. 2. Hypertension, not controlled. 3. Bradycardia. 4. Diabetes mellitus type 2. 5. Gastroesophageal reflux disease. 6. Essential tremors. PLAN: Consult PT, OT. Consult Dr. Alves for further evaluation and management for Neurology evaluation and management. Continue to monitor blood sugar. I will start her on IV hydralazine p.r.n. for elevated blood pressure. For details, please refer to the orders. RILEY LOERA MD DR: NGHIA/meliton JOB#: [id number] / [id number]
[2020-05-29 14:35] VITALS: BP 137/63
[2020-05-29] MEDS: INSULIN LISPRO 300 UNITS/3 ML VIAL. SQ SCH (17:00)
[2020-05-29 19:00] VITALS: BP 160/77
--- NOTE | 2020-05-29 20:23 | CONS ---
DATE OF CONSULTATION: 05/29/2020 REFERRING PHYSICIAN: Augustus Moore MD REASON FOR CONSULTATION: Evaluate for stroke with dizziness. HISTORY OF PRESENT ILLNESS: The patient is a 75-year-old woman who developed dizziness yesterday while sitting. She was walking across her dining room and suddenly things started to spin and she felt she would fall down. She tried to grab on to something, but fell down anyway. There was no loss of consciousness. She called her brother who got her to the Emergency Room. The dizziness made her vomit. This was not associated with headache. She often has had discomfort. She has also noted some difficulty with word finding as well as short-term memory. This did not affect her ability to talk. She was not weak on either side that she recalls nor would she suddenly numb. Her dizziness has improved since she has been in the hospital. PAST MEDICAL HISTORY: 1. Diabetes. 2. Hypertension. 3. Hyperlipidemia. 4. Gastroesophageal reflux disease. 5. Urinary tract infection. 6. Essential tremor. 7. Breast biopsy. ALLERGIES: AMOXICILLIN, AMPICILLIN, AND ELEMENTAL MERCURY. FAMILY HISTORY: Positive for diabetes, heart disease and Alzheimer's dementia. SOCIAL HISTORY: She does not smoke tobacco, drink alcohol or use recreational drugs. She lives with her brother. REVIEW OF SYSTEMS: She has occasional headaches. She has had no change of vision or hearing. She has had some memory loss and word finding difficulty. She has not had nose or sinus trouble. She has been able to chew and swallow without choking. She does not have shortness of breath, chest or abdominal pain. She does not have bone or joint pain. She has not had fever or rash. Does not have any gastrointestinal or genitourinary complaint. Does not complain of swelling, bruising or bleeding. Does have anxiety at times. She has trouble with her left ear, sometimes being painful. PHYSICAL EXAMINATION: VITAL SIGNS: The blood pressure was 137/63, pulse 74, respirations 22, temperature 98 degrees Fahrenheit. Oximetry was 96% on room air. Her weight was 59 kilograms, height 66 inches and a calculated body mass index of 21. GENERAL: She was alert, awake and cooperative. Speech was fluent and clear. She had a good fund of recent and remote knowledge. Attention and concentration was intact. She was well groomed and well nourished. She was oriented. NEUROLOGIC: Examination of the cranial nerves revealed visual mendoza were full to confrontation. Extraocular movements were intact. The eyes were conjugate. Pursuit movements were smooth and saccadic eye movements were without dysmetria. There was no nystagmus. Pupils were 3 mm. Facial sensation was intact. The muscles of mastication and facial expression were powerful symmetrically. Hearing was intact to finger rub. The palate arched symmetrically and the tongue was midline with full motion. Sternocleidomastoid and trapezius were powerful. Muscle bulk and tone was normal. There was no arm drift or abnormal movement. There was no leg drift. Power was full and symmetric in the upper and lower extremities. Reflexes were 2/4 in the upper and lower extremities, 1/4 at the ankles. Toes were not upgoing. Coordination testing with qyhpnj-dg-hrum, ougd-kh-orar, fine motor and rapid alternating movements was well performed. The sensory exam was intact to pain, light touch, proprioception, graphesthesia, cold thermal and vibration. There was no extinction to double simultaneous stimulation. Gait was normal based and steady. She could briefly walk on heels or toes with balance support. The Romberg stance was negative. NECK: Auscultation of the carotid arteries did not reveal a bruit. HEART: Rhythm is regular, without a murmur. EXTREMITIES: Peripheral pulses were symmetric. There was no edema or cyanosis. LABORATORY RESULTS: CBC was performed 05/29/2020 revealing a normal white blood cell count and platelet count. Hemoglobin was low at 11.6 and hematocrit at 33.4. Chemistries were performed on 05/29/2020. Sodium was low at 132 and chloride at 97. Potassium and CO2 were normal. BUN and creatinine were normal, and GFR calculated at 70.3. Glucose was elevated to 124. Calcium was low at 8.2. Troponin was 0.022. A lipid profile revealed cholesterol at 176, triglycerides at 70, HDL was 59, LDL 103 and VLDL 14. The ratio was 3. Salicylate was less than 2.8. Urinalysis was performed 05/28/2020 revealing specific gravity greater than 1.030. There were 1-4 white cells and 1-2 red cells with a few squamous epithelial cells and a few bacteria. DIAGNOSTIC RESULTS: CT scan of the brain was performed on 05/28/2020 revealing a left cerebellar hypoattenuation concerning for acute to subacute stroke. MRI was recommended. CTA of the head and neck was performed on 05/28/2020. This revealed no large vessel occlusion. There is patent intracranial and cervical arterial vasculature without evidence of stenosis, occlusion or aneurysm. IMPRESSION: The patient is a 75-year-old woman who had the sudden onset of a sense of dizziness, which made her fall and vomit. This certainly could be from a cerebellar stroke. Unfortunately, CAT scans are not very sensitive for finding strokes in this region due to bone density as well as timing. Neurologically, her exam seems improved and stable. She does have an essential tremor. I do not see evidence for Parkinson's disease that she does not appear to have cogwheel rigidity or bradykinesia. RECOMMENDATIONS: I will order MRI brain without contrast to confirm or refute if she has a stroke in the cerebellum contributing to her symptoms. I appreciate being involved in her care. IGNACIO ZUÑIGA MD DR: LITZY/meliton JOB#: [id number] / [id number]
[2020-05-29] MEDS: ATORVASTATIN CALCIUM 40 MG TABLET. PO SCH (21:24)
[2020-05-29] MEDS: METOPROLOL SUCC 24HR ER 25 MG TAB.ER.24H. PO SCH (21:25)
[2020-05-29 23:00] VITALS: BP 162/72
[2020-05-30 03:00] VITALS: BP 130/61
[2020-05-30] MEDS ORDERED: ASPIRIN ENTERIC COATED 81 MG TABLET.DR. PO SCH (07:00)
[2020-05-30 07:10] VITALS: BP 149/79
[2020-05-30] MEDS: ASPIRIN ENTERIC COATED 81 MG TABLET.DR. PO SCH (08:00)
[2020-05-30] MEDS: ENOXAPARIN 40 MG/0.4 ML SYRINGE. SQ SCH (08:30)
[2020-05-30] MEDS: OMEGA-3 FATTY ACIDS/FISH OIL 1,000 MG CAPSULE. PO SCH (08:30)
[2020-05-30] MEDS: CETIRIZINE HCL 10 MG TABLET. PO SCH (08:30)
[2020-05-30] MEDS: MULTIVITAMIN with MINERAL TABLET. PO SCH (08:30)
[2020-05-30] MEDS: PANTOPRAZOLE 40 MG TABLET.DR. PO SCH (08:30)
[2020-05-30] MEDS: EZETIMIBE 10 MG TABLET. PO SCH (08:31)
[2020-05-30] MEDS: METOPROLOL SUCC 24HR ER 25 MG TAB.ER.24H. PO SCH ×2 (08:31→22:17)
[2020-05-30] MEDS: LOSARTAN POTASSIUM 50 MG TABLET. PO SCH (08:31)
[2020-05-30] MEDS: INSULIN LISPRO 300 UNITS/3 ML VIAL. SQ SCH ×3 (08:42→16:08)
[2020-05-30] MEDS ORDERED: ONDANSETRON PF 4 MG/2 ML VIAL. IVP PRN (09:00)
--- NOTE | 2020-05-30 10:04 | PDOC ---
IM PROGRESS NOTES- Subjective Subjective No c/o pain,dyspnea. No complaints no complaints of dizziness or nausea Objective Vitals/I&O Vital Signs Date Time Temp Pulse Resp B/P (MAP) Pulse Ox O2 Delivery O2 Flow Rate FiO2 05/30/20 08:31 63 149/79 05/30/20 07:10 98.3 19 95 Room Air 98.3 I & O 05/29/20 05/29/20 05/30/20 15:00 23:00 07:00 Intake Total 200 ml 200 ml 50 ml Balance 200 ml 200 ml 50 ml Physical Exam Physical Exam General appearance - alert,well appearing, and in no distress and oriented to person, place, and time Mental Status - alert, oriented to person, place, and time, affect appropriate to mood Head - normal Chest - clear to auscultation, no wheezes, rales or rhonchi, symmetric air entry Heart - S1 and S2 normal Abdomen - soft, nontender, Neurological - alert and oriented Musculoskeletal - no muscular tenderness noted Extremities - no pedal edema Skin - warm and dry Labs Laboratory Tests Test 05/29/20 10:29 05/29/20 17:11 05/29/20 20:37 05/30/20 07:19 Glucose (Fingerstick) 128 mg/dL (70-99) H 134 mg/dL (70-99) H 177 mg/dL (70-99) H 153 mg/dL (70-99) H Meds Current Medications Medications (Trade) Dose Ordered Sig/John Route PRN Reason Start Time Stop Time Status Last Admin Dose Admin Atorvastatin Calcium (Lipitor) 40 mg QHS PO 05/29/20 21:00 05/29/20 21:24 Insulin Human Lispro (HumaLOG) 0-7 UNITS TIDWMEALS SQ 05/29/20 17:00 05/30/20 08:42 EZETIMIBE (Zetia) 10 mg DAILY PO 05/30/20 09:00 05/30/20 08:31 Losartan Potassium (Cozaar) 50 mg DAILY PO 05/30/20 09:00 05/30/20 08:31 Metoprolol Succinate (Toprol Xl) 25 mg BID PO 05/29/20 21:00 05/30/20 08:31 Pantoprazole Sodium (Protonix) 40 mg DAILYAC PO 05/30/20 07:30 05/30/20 08:30 Enoxaparin Sodium (Lovenox 40mg Syringe) 40 mg Q24H SQ 05/30/20 09:00 05/30/20 08:30 Multivitamins (Thera M Plus) 1 tab DAILY PO 05/30/20 09:00 05/30/20 08:30 Fish Oil (Fish Oil) 1,000 mg DAILY PO 05/30/20 09:00 05/30/20 08:30 Assessment Assessment 1. Acute versus subacute cerebellar cerebrovascular accident. 2. Hypertension, not controlled. 3. Bradycardia. 4. Diabetes mellitus type 2. 5. Gastroesophageal reflux disease. 6. Essential tremors. PLAN: Consult PT, OT. Consult Dr. Alves for further evaluation and management for Neurology evaluation and management. Continue to monitor blood sugar. I will start her on IV hydralazine p.r.n. for elevated blood pressure. For details, please refer to the orders. Acute cerebellar CVA - Brain MRI ordered. Syncope- consult Cardiology. Plan Plan For more details regarding further plans, please refer to the orders. Justifications for Admission Other Justification RILEY LOERA MD May 30, 2020 10:04
[2020-05-30 11:20] VITALS: BP 151/79
[2020-05-30 13:09] LABS: BASO % 0 % (0-3); EOS % 1 % (0-3); HEMOGLOBIN 12.5 g/dL (12.0-15.5); LYMPH % 14 % (24-48); MEAN CORPUSCULAR HEMOGLOBIN 29 pg (25-35); MEAN CORPUSCULAR HGB CONC 34 g/dL (31-37); MEAN CORPUSCULAR VOLUME 86 fL (79-100); MONO # 0.7 x10^3/uL (0.0-1.1); MONO % 10 % (0-9); NEUT # 5.2 x10^3/uL (1.8-7.7); NEUT % 75 % (31-73); PLATELET COUNT 287 x10^3/uL (140-400); RED BLOOD COUNT 4.29 x10^6/uL (3.50-5.40); RED CELL DISTRIBUTION WIDTH 13.3 % (11.5-14.5)
[2020-05-30 13:29] LABS: MAGNESIUM 1.8 mg/dL (1.8-2.4); PHOSPHORUS 2.9 mg/dL (2.6-4.7)
[2020-05-30 13:30] LABS: ALBUMIN 3.3 g/dL (3.4-5.0); ALBUMIN/GLOBULIN RATIO 0.9 (1.0-1.7); CALCIUM 8.4 mg/dL (8.5-10.1); CREATININE 0.8 mg/dL (0.6-1.0); GFR 70.3; POTASSIUM 4.1 mmol/L (3.5-5.1); TOTAL BILIRUBIN 0.9 mg/dL (0.2-1.0); TOTAL PROTEIN 7.1 g/dL (6.4-8.2)
--- NOTE | 2020-05-30 15:05 | RAD ---
BRAIN W/O CONTRAST Date: 05/30/2020 5:00 AM Indication: evaluate for posterior fossa stroke. Comparison: CT 05/28/2020. Technique: Multiplanar multisequence MRI of the brain was performed without intravenous contrast using the standard protocol. Findings: Left inferior cerebellar DWI hyperintensity with faint ADC hypointensity. Associated edema with partial effacement of the fourth ventricle. Lateral and third ventricles are not dilated. No acute hemorrhage. Minimal scattered FLAIR hyperintensities in the subcortical and periventricular deep white matter, a nonspecific finding, appropriate for patient age. The scalp and calvarium are normal. The pituitary and sella are normal. No Chiari malformation. The visualized upper cervical spine is normal. The visualized orbits and globes are normal. Left maxillary sinus mucus retention cyst. The mastoid air cells are clear. Normal flow voids within the vertebral, basilar, and internal carotid arteries indicating patency. IMPRESSION: Acute to subacute left inferior cerebellar infarct corresponding to the region of hypoattenuation seen on the prior CT. No acute hemorrhage. Mass effect with partial effacement of the fourth ventricle. Lateral and third ventricles are not dilated. Electronically signed by: Rudy Vides MD (05/30/2020 3:02 PM) [id number]
[2020-05-30 15:10] VITALS: BP 157/67
--- NOTE | 2020-05-30 18:32 | PDOC ---
PROGRESS NOTES Assessment 1. Stroke left cerebellum contributed to her dizziness and fall with nausea and vomiting. She is improving. I do not see evidence for ataxia of the arm or leg. She is not complaining of dizziness. She has been able to walk as long as she stands up and waits a little while and takes her time. She was on aspirin prior to this event. She was not on a statin. She did not have any evidence of major vascular occlusion with CAT scan arteriogram of the head and neck. 2. Hypertension with blood pressures generally elevated. 3. Hyperlipidemia. She states that at one point she was on a statin but discontinued the medication because she was having headache, ear problems and high blood pressure. She attributed all the symptoms to the medication. 4. Essential tremor Plan 1. We discussed that she will recover well from this stroke. We need to try to prevent another stroke. We will add Plavix to the regimen 75 mg daily along with aspirin 81 mg. After a month the aspirin can be discontinued. She may be discharged from a neurologic perspective when medically stable. I still await the result of the echocardiogram. 2. She should monitor her blood pressure at home and work to achieve 120/80. She will need to work with her primary care physician for medicine adjustments. Exercise and diet modification is helpful. 3. We discussed that a statin can help lower the chance of recurrent stroke. I recommend she rechallenge herself with a statin. The symptoms she experience would not typically be due to side effects from such a medication. We did discuss potential side effects. 4. She does have essential tremor which bothers her mostly with action. Medicines could be considered at a later time for tremor management. Subjective I feel okay. I have to stand for a minute before I try to walk. I have not noticed any change of coordination but I still have my tremor. Objective Vital Signs Date Time Temp Pulse Resp B/P (MAP) Pulse Ox O2 Delivery O2 Flow Rate FiO2 05/30/20 15:10 98.8 62 21 157/67 (97) 99 Room Air 98.8 l Intake and Output 05/30/20 07:00 Intake Total 450 ml Balance 450 ml Intake Oral 450 ml # Voids 4 PHYSICAL EXAM She was alert, awake and cooperative. Speech was fluent and clear. She had a g ood fund of recent and remote knowledge. Attention and concentration was intact. She was oriented. The eyes were conjugate and face symmetric. She followed commands well. Muscle bulk and tone was normal. Power was full and symmetric. Coordination testing with [id number], fine motor tapping and rapid movements was well performed bilaterally. She did have the imposed trem or. [id number] was well performed. Sensation was intact to light touch. Review of Relevant I have reviewed the following items julianna (where applicable) has been applied. Labs Laboratory Tests Test 05/28/20 20:40 05/28/20 23:40 05/29/20 05:55 05/29/20 10:29 White Blood Count 12.1 x10^3/uL (4.0-11.0) 7.4 x10^3/uL (4.0-11.0) Red Blood Count 4.26 x10^6/uL (3.50-5.40) 3.88 x10^6/uL (3.50-5.40) Hemoglobin 12.3 g/dL (12.0-15.5) 11.6 g/dL (12.0-15.5) Hematocrit 36.8 % (36.0-47.0) 33.4 % (36.0-47.0) Mean Corpuscular Volume 86 fL (79-100) 86 fL (79-100) Mean Corpuscular Hemoglobin 29 pg (25-35) 30 pg (25-35) Mean Corpuscular Hemoglobin Concent 33 g/dL (31-37) 35 g/dL (31-37) Red Cell Distribution Width 13.4 % (11.5-14.5) 13.5 % (11.5-14.5) Platelet Count 250 x10^3/uL (140-400) 239 x10^3/uL (140-400) Neutrophils (%) (Auto) 88 % (31-73) 77 % (31-73) Lymphocytes (%) (Auto) 7 % (24-48) 13 % (24-48) Monocytes (%) (Auto) 5 % (0-9) 10 % (0-9) Eosinophils (%) (Auto) 0 % (0-3) 1 % (0-3) Basophils (%) (Auto) 0 % (0-3) 0 % (0-3) Neutrophils # (Auto) 10.7 x10^3/uL (1.8-7.7) 5.7 x10^3/uL (1.8-7.7) Lymphocytes # (Auto) 0.8 x10^3/uL (1.0-4.8) 0.9 x10^3/uL (1.0-4.8) Monocytes # (Auto) 0.5 x10^3/uL (0.0-1.1) 0.7 x10^3/uL (0.0-1.1) Eosinophils # (Auto) 0.0 x10^3/uL (0.0-0.7) 0.0 x10^3/uL (0.0-0.7) Basophils # (Auto) 0.1 x10^3/uL (0.0-0.2) 0.0 x10^3/uL (0.0-0.2) Segmented Neutrophils % 75 % (35-66) Band Neutrophils % 9 % (0-9) Lymphocytes % 12 % (24-48) Monocytes % 4 % (0-10) Platelet Estimate Adequate (ADEQUATE) Sodium Level 130 mmol/L (136-145) 132 mmol/L (136-145) Potassium Level 4.9 mmol/L (3.5-5.1) 4.4 mmol/L (3.5-5.1) Chloride Level 96 mmol/L (98-107) 97 mmol/L (98-107) Carbon Dioxide Level 24 mmol/L (21-32) 28 mmol/L (21-32) Anion Gap 10 (6-14) 7 (6-14) Blood Urea Nitrogen 22 mg/dL (7-20) 17 mg/dL (7-20) Creatinine 0.9 mg/dL (0.6-1.0) 0.8 mg/dL (0.6-1.0) Estimated GFR (Cockcroft-Gault) 61.4 70.3 Glucose Level 164 mg/dL (70-99) 124 mg/dL (70-99) Calcium Level 8.9 mg/dL (8.5-10.1) 8.2 mg/dL (8.5-10.1) Troponin I Quantitative 0.040 ng/mL (0.000-0.055) 0.022 ng/mL (0.000-0.055) Salicylates Level < 2.8 mg/dL (2.8-20.0) Salicylate Last Dose Date Unknown Salicylate Last Dose Time Unknown Urine Collection Type Unknown Urine Color Yellow Urine Clarity Clear Urine pH 6.5 (<5.0-8.0) Urine Specific [place] >=1.030 (1.000-1.030) Urine Protein Negative mg/dL (NEG-TRACE) Urine Glucose (UA) Negative mg/dL (NEG) Urine Ketones (Stick) Negative mg/dL (NEG) Urine Blood Negative (NEG) Urine Nitrite Negative (NEG) Urine Bilirubin Negative (NEG) Urine Urobilinogen Dipstick 0.2 mg/dL (0.2 mg/dL) Urine Leukocyte Esterase Negative (NEG) Urine RBC 1-2 /HPF (0-2) Urine WBC 1-4 /HPF (0-4) Urine Squamous Epithelial Cells Few /LPF Urine Bacteria Few /HPF (0-FEW) Triglycerides Level 70 mg/dL (0-150) Cholesterol Level 176 mg/dL (0-200) LDL Cholesterol, Calculated 103 mg/dL (0-100) VLDL Cholesterol, Calculated 14 mg/dL (0-40) Non-HDL Cholesterol Calculated 117 mg/dL (0-129) HDL Cholesterol 59 mg/dL (40-60) Cholesterol/HDL Ratio 3.0 Glucose (Fingerstick) 128 mg/dL (70-99) Test 05/29/20 17:11 05/29/20 20:37 05/30/20 07:19 05/30/20 10:50 Glucose (Fingerstick) 134 mg/dL (70-99) 177 mg/dL (70-99) 153 mg/dL (70-99) 138 mg/dL (70-99) Test 05/30/20 12:38 05/30/20 15:50 White Blood Count 7.0 x10^3/uL (4.0-11.0) Red Blood Count 4.29 x10^6/uL (3.50-5.40) Hemoglobin 12.5 g/dL (12.0-15.5) Hematocrit 37.0 % (36.0-47.0) Mean Corpuscular Volume 86 fL (79-100) Mean Corpuscular Hemoglobin 29 pg (25-35) Mean Corpuscular Hemoglobin Concent 34 g/dL (31-37) Red Cell Distribution Width 13.3 % (11.5-14.5) Platelet Count 287 x10^3/uL (140-400) Neutrophils (%) (Auto) 75 % (31-73) Lymphocytes (%) (Auto) 14 % (24-48) Monocytes (%) (Auto) 10 % (0-9) Eosinophils (%) (Auto) 1 % (0-3) Basophils (%) (Auto) 0 % (0-3) Neutrophils # (Auto) 5.2 x10^3/uL (1.8-7.7) Lymphocytes # (Auto) 1.0 x10^3/uL (1.0-4.8) Monocytes # (Auto) 0.7 x10^3/uL (0.0-1.1) Eosinophils # (Auto) 0.0 x10^3/uL (0.0-0.7) Basophils # (Auto) 0.0 x10^3/uL (0.0-0.2) Sodium Level 130 mmol/L (136-145) Potassium Level 4.1 mmol/L (3.5-5.1) Chloride Level 95 mmol/L (98-107) Carbon Dioxide Level 27 mmol/L (21-32) Anion Gap 8 (6-14) Blood Urea Nitrogen 13 mg/dL (7-20) Creatinine 0.8 mg/dL (0.6-1.0) Estimated GFR (Cockcroft-Gault) 70.3 BUN/Creatinine Ratio 16 (6-20) Glucose Level 126 mg/dL (70-99) Calcium Level 8.4 mg/dL (8.5-10.1) Phosphorus Level 2.9 mg/dL (2.6-4.7) Magnesium Level 1.8 mg/dL (1.8-2.4) Total Bilirubin 0.9 mg/dL (0.2-1.0) Aspartate Amino Transf (AST/SGOT) 24 U/L (15-37) Alanine Aminotransferase (ALT/SGPT) 24 U/L (14-59) Alkaline Phosphatase 82 U/L (46-116) Total Protein 7.1 g/dL (6.4-8.2) Albumin 3.3 g/dL (3.4-5.0) Albumin/Globulin Ratio 0.9 (1.0-1.7) Glucose (Fingerstick) 144 mg/dL (70-99) Laboratory Tests Test 05/29/20 20:37 05/30/20 07:19 05/30/20 10:50 05/30/20 12:38 Glucose (Fingerstick) 177 mg/dL (70-99) 153 mg/dL (70-99) 138 mg/dL (70-99) White Blood Count 7.0 x10^3/uL (4.0-11.0) Red Blood Count 4.29 x10^6/uL (3.50-5.40) Hemoglobin 12.5 g/dL (12.0-15.5) Hematocrit 37.0 % (36.0-47.0) Mean Corpuscular Volume 86 fL (79-100) Mean Corpuscular Hemoglobin 29 pg (25-35) Mean Corpuscular Hemoglobin Concent 34 g/dL (31-37) Red Cell Distribution Width 13.3 % (11.5-14.5) Platelet Count 287 x10^3/uL (140-400) Neutrophils (%) (Auto) 75 % (31-73) Lymphocytes (%) (Auto) 14 % (24-48) Monocytes (%) (Auto) 10 % (0-9) Eosinophils (%) (Auto) 1 % (0-3) Basophils (%) (Auto) 0 % (0-3) Neutrophils # (Auto) 5.2 x10^3/uL (1.8-7.7) Lymphocytes # (Auto) 1.0 x10^3/uL (1.0-4.8) Monocytes # (Auto) 0.7 x10^3/uL (0.0-1.1) Eosinophils # (Auto) 0.0 x10^3/uL (0.0-0.7) Basophils # (Auto) 0.0 x10^3/uL (0.0-0.2) Sodium Level 130 mmol/L (136-145) Potassium Level 4.1 mmol/L (3.5-5.1) Chloride Level 95 mmol/L (98-107) Carbon Dioxide Level 27 mmol/L (21-32) Anion Gap 8 (6-14) Blood Urea Nitrogen 13 mg/dL (7-20) Creatinine 0.8 mg/dL (0.6-1.0) Estimated GFR (Cockcroft-Gault) 70.3 BUN/Creatinine Ratio 16 (6-20) Glucose Level 126 mg/dL (70-99) Calcium Level 8.4 mg/dL (8.5-10.1) Phosphorus Level 2.9 mg/dL (2.6-4.7) Magnesium Level 1.8 mg/dL (1.8-2.4) Total Bilirubin 0.9 mg/dL (0.2-1.0) Aspartate Amino Transf (AST/SGOT) 24 U/L (15-37) Alanine Aminotransferase (ALT/SGPT) 24 U/L (14-59) Alkaline Phosphatase 82 U/L (46-116) Total Protein 7.1 g/dL (6.4-8.2) Albumin 3.3 g/dL (3.4-5.0) Albumin/Globulin Ratio 0.9 (1.0-1.7) Test 05/30/20 15:50 Glucose (Fingerstick) 144 mg/dL (70-99) Medications Current Medications Ondansetron HCl (Zofran Odt) 4 mg 1X ONCE PO Last administered on 05/28/20at 20:57; Start 05/28/20 at 20:30; Stop 05/28/20 at 20:31; Status DC Iohexol (Omnipaque 300 Mg/ml) 75 ml 1X ONCE IV Last administered on 05/28/20at 22:47; Start 05/28/20 at 22:00; Stop 05/28/20 at 22:01; Status DC Info (CONTRAST GIVEN -- Rx MONITORING) 1 each PRN DAILY PRN MC SEE COMMENTS; Start 05/28/20 at 21:45; Stop 05/30/20 at 21:44 Aspirin (Aspirin Chewable) 243 mg 1X ONCE PO Last administered on 05/28/20at 23:49; Start 05/28/20 at 23:00; Stop 05/28/20 at 23:01; Status DC Ondansetron HCl (Zofran) 4 mg PRN Q8HRS PRN IV NAUSEA/VOMITING 1ST CHOICE; Start 05/28/20 at 23:30; Stop 05/29/20 at 23:29; Status DC Cetirizine HCl (ZyrTEC) 10 mg DAILY PO Last administered on 05/30/20at 08:30; Start 05/29/20 at 09:00 Aspirin (Ecotrin) 81 mg DAILYWBKFT PO Last administered on 05/30/20 08:00; S tart 05/29/20 at 09:30 Atorvastatin Calcium (Lipitor) 40 mg QHS PO Last administered on 05/29/20at 21:24; Start 05/29/20 at 21:00 Insulin Human Lispro (HumaLOG) 0-7 UNITS TIDWMEALS SQ Last administered on 05/30/20 08:42; Start 05/29/20 at 17:00 Dextrose (Dextrose 50%-Water Syringe) 12.5 gm PRN Q15MIN PRN IV SEE COMMENTS; Start 05/29/20 at 12:15 Aspirin (Ecotrin) 81 mg DAILY07 PO ; Start 05/30/20 at 07:00; Stop 05/29/20 at 13:08; Status DC EZETIMIBE (Zetia) 10 mg DAILY PO Last administered on 05/30/20 08:31; Start 05/30/20 at 09:00 Losartan Potassium (Cozaar) 50 mg DAILY PO Last administered on 05/30/20 08:31; Start 05/30/20 at 09:00 Metoprolol Succinate (Toprol Xl) 25 mg BID PO Last administered on 05/30/20 08:31; Start 05/29/20 at 21:00 Pantoprazole Sodium (Protonix) 40 mg DAILYAC PO Last administered on 05/30/20 08:30; Start 05/30/20 at 07:30 Ondansetron HCl (Zofran) 4 mg PRN Q6HRS PRN IVP NAUSEA/VOMITING; Start 05/30/20 at 09:00 Enoxaparin Sodium (Lovenox 40mg Syringe) 40 mg Q24H SQ Last administered on 05/30/20 08:30; Start 05/30/20 at 09:00 Multivitamins (Thera M Plus) 1 tab DAILY PO Last administered on 05/30/20 08:30; Start 05/30/20 at 09:00 Fish Oil (Fish Oil) 1,000 mg DAILY PO Last administered on 05/30/20 08:30; Start 05/30/20 at 09:00 Hydralazine HCl (Apresoline Inj) 10 mg PRN Q4HRS PRN IVP FOR SBP > 160; Start 05/29/20 at 13:15 Active Scripts Active Zofran (Ondansetron Hcl) 4 Mg Tablet 1 Tab PO Q6HRS PRN [Pantoprazole] 40 MG Tablet. 40 Mg PO DAILYAC 30 Days Reported Metoprolol Succinate ( Xl ) (Metoprolol Succinate) 25 Mg Tab.er.24h 1 Tab PO BID Gabapentin 600 Mg Tablet 100 Mg PO TID Questran Packet (Cholestyramine (With Sugar)) 4 Gm Powd.pack 4 Gm PO BID Fish Oil 1,400 Mg Softgel ([place]-3/Dha/Epa/Fish Oil) 1 Each Capsule.dr 1 Each PO DAILY Calcium (Calcium Carbonate) 600 Mg Tablet 1,200 Mg PO DAILY Multivitamins (Multivitamin) 1 Each Tablet 1 Tab PO DAILY Metformin Hcl 850 Mg Tablet 850 Mg PO TIDWMEALS Aspir 81 (Aspirin) 81 Mg Tablet. 1 Tab PO DAILY Zetia (Ezetimibe) 10 Mg Tablet 1 Tab PO DAILY Losartan Potassium 50 Mg Tablet 50 Mg PO DAILY Vitals/I & O Vital Sign - Last 24 Hours 05/29/20 05/29/20 05/29/20 05/30/20 19:00 21:25 23:00 03:00 Temp 98.5 98.5 98.7 98.5 98.5 98.7 Pulse 75 75 67 60 Resp 20 22 18 B/P (MAP) 160/77 (104) 160/77 162/72 (102) 130/61 (84) Pulse Ox 96 96 97 O2 Delivery Room Air Room Air Room Air 05/30/20 05/30/20 05/30/20 05/30/20 07:10 08:00 08:31 08:31 Temp 98.3 98.3 Pulse 63 63 63 Resp 19 B/P (MAP) 149/79 (102) 149/79 149/79 Pulse Ox 95 O2 Delivery Room Air Room Air 05/30/20 05/30/20 11:20 15:10 Temp 98.4 98.8 98.4 98.8 Pulse 63 62 Resp 20 21 B/P (MAP) 151/79 (103) 157/67 (97) Pulse Ox 96 99 O2 Delivery Room Air Room Air Intake and Output 05/29/20 05/29/20 05/30/20 15:00 23:00 07:00 Intake Total 200 ml 200 ml 50 ml Balance 200 ml 200 ml 50 ml Justicifation of Admission Dx: Justifications for Admission: Justification of Admission Dx: Yes Stroke - Ischemic: Stroke-Ischemic IGNACIO ZUÑIGA MD May 30, 2020 18:32
[2020-05-30 19:00] VITALS: BP 177/75
[2020-05-30] MEDS: ATORVASTATIN CALCIUM 40 MG TABLET. PO SCH (22:16)
[2020-05-30 23:00] VITALS: BP 168/69
[2020-05-31 03:05] VITALS: BP 135/69
[2020-05-31 07:00] VITALS: BP 173/74
[2020-05-31] MEDS: INSULIN LISPRO 300 UNITS/3 ML VIAL. SQ SCH ×3 (08:00→18:05)
--- NOTE | 2020-05-31 08:57 | PDOC ---
PROGRESS NOTES Date of Service: DATE: 05/31/20 TIME: 08:55 Subjective Subjective feels better ,want to go home Objective Objective Vital Signs Date Time Temp Pulse Resp B/P (MAP) Pulse Ox O2 Delivery O2 Flow Rate FiO2 05/31/20 07:00 98.3 56 18 173/74 (107) 94 Room Air 98.3 Intake and Output 05/31/20 07:00 Intake Total 540 ml Balance 540 ml Intake Oral 180 ml Tube Feeding 360 ml # Voids 4 Physical Exam Abdomen: Normal bowel sounds, Soft Heart: Regular rate, Normal S1, Normal S2 Extremities: No clubbing General: Alert, Oriented X3 HEENT: Atraumatic Lungs: Clear to auscultation MUSCULOSKELETAL: No deformity, No muscular tenderness noted Neck: Supple Neuro: Normal speech Psych/Mental Status: Mental status NL Skin: No breakdown Diagnosis Problem List Problems Medical Problems: (1) CVA (cerebral vascular accident) Status: Acute (2) Diabetes Status: Acute (3) GERD (gastroesophageal reflux disease) Status: Acute (4) Hyperlipidemia Status: Acute (5) Hypertension Status: Acute Assessment Assessment 1. Acute versus subacute cerebellar cerebrovascular accident. 2. Hypertension, not controlled. 3. Bradycardia. 4. Diabetes mellitus type 2. 5. Gastroesophageal reflux disease. 6. Essential tremors. PLAN: MRI showed cerebellar ischemic stroke. carotid ok echo pending going home on asa+plavix cannot tolerate ststins. d/c home with home health later today. Consult PT, OT. Consult Dr. Alves for further evaluation and management for Neurology evaluation and management. Continue to monitor blood sugar. I will start her on IV hydralazine p.r.n. for elevated blood pressure. For details, please refer to the orders. Acute cerebellar CVA - Brain MRI ordered. Syncope- consult Cardiology. Plan Plan of Care Problems Medical Problems: (1) CVA (cerebral vascular accident) Status: Acute (2) Diabetes Status: Acute (3) GERD (gastroesophageal reflux disease) Status: Acute (4) Hyperlipidemia Status: Acute (5) Hypertension Status: Acute Comment Review of Relevant I have reviewed the following items julianna (where applicable) has been applied. Labs Laboratory Tests Test 05/30/20 10:50 05/30/20 12:38 05/30/20 15:50 05/30/20 20:47 Glucose (Fingerstick) 138 mg/dL (70-99) 144 mg/dL (70-99) 131 mg/dL (70-99) White Blood Count 7.0 x10^3/uL (4.0-11.0) Red Blood Count 4.29 x10^6/uL (3.50-5.40) Hemoglobin 12.5 g/dL (12.0-15.5) Hematocrit 37.0 % (36.0-47.0) Mean Corpuscular Volume 86 fL (79-100) Mean Corpuscular Hemoglobin 29 pg (25-35) Mean Corpuscular Hemoglobin Concent 34 g/dL (31-37) Red Cell Distribution Width 13.3 % (11.5-14.5) Platelet Count 287 x10^3/uL (140-400) Neutrophils (%) (Auto) 75 % (31-73) Lymphocytes (%) (Auto) 14 % (24-48) Monocytes (%) (Auto) 10 % (0-9) Eosinophils (%) (Auto) 1 % (0-3) Basophils (%) (Auto) 0 % (0-3) Neutrophils # (Auto) 5.2 x10^3/uL (1.8-7.7) Lymphocytes # (Auto) 1.0 x10^3/uL (1.0-4.8) Monocytes # (Auto) 0.7 x10^3/uL (0.0-1.1) Eosinophils # (Auto) 0.0 x10^3/uL (0.0-0.7) Basophils # (Auto) 0.0 x10^3/uL (0.0-0.2) Sodium Level 130 mmol/L (136-145) Potassium Level 4.1 mmol/L (3.5-5.1) Chloride Level 95 mmol/L (98-107) Carbon Dioxide Level 27 mmol/L (21-32) Anion Gap 8 (6-14) Blood Urea Nitrogen 13 mg/dL (7-20) Creatinine 0.8 mg/dL (0.6-1.0) Estimated GFR (Cockcroft-Gault) 70.3 BUN/Creatinine Ratio 16 (6-20) Glucose Level 126 mg/dL (70-99) Calcium Level 8.4 mg/dL (8.5-10.1) Phosphorus Level 2.9 mg/dL (2.6-4.7) Magnesium Level 1.8 mg/dL (1.8-2.4) Total Bilirubin 0.9 mg/dL (0.2-1.0) Aspartate Amino Transf (AST/SGOT) 24 U/L (15-37) Alanine Aminotransferase (ALT/SGPT) 24 U/L (14-59) Alkaline Phosphatase 82 U/L (46-116) Total Protein 7.1 g/dL (6.4-8.2) Albumin 3.3 g/dL (3.4-5.0) Albumin/Globulin Ratio 0.9 (1.0-1.7) Test 05/31/20 08:29 Glucose (Fingerstick) 120 mg/dL (70-99) Medications Current Medications Clopidogrel Bisulfate (Plavix) 75 mg DAILYWBKFT PO ; Start 05/31/20 at 08:00 Enoxaparin Sodium (Lovenox 40mg Syringe) 40 mg Q24H SQ Last administered on 05/30/20at 08:30; Start 05/30/20 at 09:00 EZETIMIBE (Zetia) 10 mg DAILY PO Last administered on 05/30/20at 08:31; Start 05/30/20 at 09:00 Fish Oil (Fish Oil) 1,000 mg DAILY PO Last administered on 05/30/20at 08:30; Start 05/30/20 at 09:00 Losartan Potassium (Cozaar) 50 mg DAILY PO Last administered on 05/30/20at 08:31; Start 05/30/20 at 09:00 Multivitamins (Thera M Plus) 1 tab DAILY PO Last administered on 05/30/20at 08:30; Start 05/30/20 at 09:00 Ondansetron HCl (Zofran) 4 mg PRN Q6HRS PRN IVP NAUSEA/VOMITING; Start 05/30/20 at 09:00 Vitals/I & O Vital Sign - Last 24 Hours 05/30/20 05/30/20 05/30/20 05/30/20 11:20 15:10 19:00 20:00 Temp 98.4 98.8 98.8 98.4 98.8 98.8 Pulse 63 62 60 Resp 20 21 16 B/P (MAP) 151/79 (103) 157/67 (97) 177/75 (109) Pulse Ox 96 99 94 O2 Delivery Room Air Room Air Room Air Room Air 05/30/20 05/30/20 05/31/20 05/31/20 22:17 23:00 03:05 07:00 Temp 98.9 98.5 98.3 98.9 98.5 98.3 Pulse 60 60 59 56 Resp 18 18 18 B/P (MAP) 168/69 168/69 (102) 135/69 (91) 173/74 (107) Pulse Ox 93 97 94 O2 Delivery Room Air Room Air Room Air Intake and Output 05/30/20 05/30/20 05/31/20 15:00 23:00 07:00 Intake Total 360 ml 180 ml Balance 360 ml 180 ml Justifications for Admission Other Justification JAMES CURTIS MD May 31, 2020 08:57
[2020-05-31] MEDS ORDERED: CLOP75TA PO (09:00)
--- NOTE | 2020-05-31 09:01 | SNU/HH DC ---
DISCHARGE WITH HOME HEALTH DISCHARGE INFORMATION: Discharge Date: May 31, 2020 Final Diagnosis: Problems Medical Problems: (1) CVA (cerebral vascular accident) Status: Acute (2) Diabetes Status: Acute (3) GERD (gastroesophageal reflux disease) Status: Acute (4) Hyperlipidemia Status: Acute (5) Hypertension Status: Acute Condition on Discharge: Stable CODE STATUS: Code Status: Full HOME HEALTH: Face to Face: I certify this patient is under my care and that I, or a nurse practitioner or physician's first assistant manager working with me, had a face to face encounter that meets the physician face to face encounter requirements with this patient on []. Medical Complications: CVA RN For Eval/Treatment: Yes Physical Therapy For: Evalulation/Treatment Occupational Therapy For: Evaluation/Treatment Home Health Aide For: Self-care COMMERCIAL LAWN SPECIALIST For: Community Resources Pt Meets Homebound Status: Poor coordination w/ amb. POST DISCHARGE ORDERS: Activity Instructions for Disc: Activity as tolerated Weight Bearing Status after Di: As tolerated DIET AFTER DISCHARGE: ADA Wound/Incision Care: No wound care needed CHECKS AFTER DISCHARGE: Checks after discharge: Check blood sugar, ac/hs TREATMENT/EQUIPMENT ORDERS: Adaptive Equipment Issued: None, Front wheeled walker CERTIFICATION STATEMENT: Certification Statement: Certification Statement: Based on the above finding, I certify that this patient is confined to the home and needs intermittent half-way care, physical therapy and/or speech therapy, or continues to need occupational therapy.~ This patient is under my care, and I have initiated the establishment of the plan of care.~ This patient will be followed by myself or a community physician who will periodically review the plan of care. Home Meds Active Scripts Ondansetron Hcl (ZOFRAN) 4 Mg Tablet, 1 TAB PO Q6HRS PRN for NAUSEA/VOMITING, #12 TAB Prov:SHAWN RIVERA Jr. DO 11/10/18 [Pantoprazole] 40 MG TABLET.DR Zayas Conflict Check, 40 MG PO DAILYAC for 30 Days Prov:JAMES CURTIS MD 06/18/18 Reported Medications Metoprolol Succinate (METOPROLOL SUCCINATE ( XL )) 25 Mg Tab.er.24h, 1 TAB PO BID for b/p, #30 TAB 5 Refills 02/10/19 Gabapentin (GABAPENTIN) 600 Mg Tablet, 100 MG PO TID for NEUROGENIC PAIN, TAB 02/10/19 Cholestyramine (With Sugar) (QUESTRAN PACKET) 4 Gm Powd.pack, 4 GM PO BID, PKT 06/16/18 [place]-3/Dha/Epa/Fish Oil (FISH OIL 1,400 MG SOFTGEL) 1 Each Capsule.dr, 1 EACH PO DAILY, CAP 06/16/18 Calcium Carbonate (CALCIUM) 600 Mg Tablet, 1200 MG PO DAILY, TAB 06/16/18 Multivitamin (MULTIVITAMINS) 1 Each Tablet, 1 TAB PO DAILY, #90 TAB 3 Refills 06/16/18 Metformin Hcl (METFORMIN HCL) 850 Mg Tablet, 850 MG PO TIDWMEALS for ANTI- DIABETIC, TAB 0 Refills 05/11/17 Aspirin (ASPIR 81) 81 Mg Tablet.dr, 1 TAB PO DAILY, #30 TAB 5 Refills 05/11/17 Ezetimibe (ZETIA) 10 Mg Tablet, 1 TAB PO DAILY, #30 TAB 5 Refills 05/11/17 Losartan Potassium (LOSARTAN POTASSIUM) 50 Mg Tablet, 50 MG PO DAILY, TAB 05/11/17 JAMES CURTIS MD May 31, 2020 09:01
[2020-05-31 10:43] VITALS: BP 183/71
[2020-05-31] MEDS: CLOPIDOGREL BISULFATE 75 MG TABLET PO SCH (10:43)
[2020-05-31] MEDS: EZETIMIBE 10 MG TABLET. PO SCH (10:43)
[2020-05-31] MEDS: ASPIRIN ENTERIC COATED 81 MG TABLET.DR. PO SCH (10:43)
[2020-05-31] MEDS: MULTIVITAMIN with MINERAL TABLET. PO SCH (10:43)
[2020-05-31] MEDS: METOPROLOL SUCC 24HR ER 25 MG TAB.ER.24H. PO SCH ×2 (10:43→22:31)
[2020-05-31] MEDS: CETIRIZINE HCL 10 MG TABLET. PO SCH (10:43)
[2020-05-31] MEDS: OMEGA-3 FATTY ACIDS/FISH OIL 1,000 MG CAPSULE. PO SCH (10:43)
[2020-05-31] MEDS: PANTOPRAZOLE 40 MG TABLET.DR. PO SCH (10:44)
[2020-05-31] MEDS: LOSARTAN POTASSIUM 50 MG TABLET. PO SCH (10:44)
[2020-05-31] MEDS: ENOXAPARIN 40 MG/0.4 ML SYRINGE. SQ SCH (10:46)
--- NOTE | 2020-05-31 11:04 | EKG ---
[facility] [address] [place] [address] Test Date: 2020-05-28 Test Time: 20:31:34 Pat Name: PERFECTO DOTY Department: Room: Gender: F Credit Risk Officer: : 1945 Requested By: LAQUITA HERZOG Order Number: [id number] Reading MD: Measurements Intervals [facility] Rate: 68 P: 62 NE: 170 QRS: 56 QRSD: 82 T: 54 QT: 430 QTc: 462 Interpretive Statements SINUS RHYTHM LOW LIMB LEAD VOLTAGE NO SPECIFIC ECG ABNORMALITIES RI6.02 No previous ECG available for comparison
--- NOTE | 2020-05-31 11:33 | PDOC ---
PROGRESS NOTES Date of Service DATE: 05/31/20 TIME: 11:29 Assessment Problems Medical Problems: (1) CVA (cerebral vascular accident) Status: Acute (2) Diabetes Status: Acute (3) GERD (gastroesophageal reflux disease) Status: Acute (4) Hyperlipidemia Status: Acute (5) Hypertension Status: Acute Left cerebellar stroke Hypertension Hyperlipidemia Essential tremor Plan Echocardiogram done, await results Okay for discharge Statin, aspirin, clopidogrel Discussed risks of dual antiplatelet agents, including fatal bleeding Home rehabilitation Follow-up with neurology as needed. Objective Vital Signs Date Time Temp Pulse Resp B/P (MAP) Pulse Ox O2 Delivery O2 Flow Rate FiO2 05/31/20 10:44 57 183/71 05/31/20 10:43 97.8 18 97 Room Air 97.8 Intake and Output 05/31/20 07:00 Intake Total 540 ml Balance 540 ml Intake Oral 180 ml Tube Feeding 360 ml # Voids 4 PHYSICAL EXAM Alert. Oriented to time, place and person. PERRL. EOMI. CN: no focal findings. Muscle tone: normal. Muscle strength: 5/5 DTR: 2+ Plantar reflex: flexor Gait: does well with walker. Sensory exam: no abnormal findings. Left cerebellar dysmetria, also has bilateral mild postural tremor Review of Relevant I have reviewed the following items julianna (where applicable) has been applied. Labs Laboratory Tests Test 05/29/20 17:11 05/29/20 20:37 05/30/20 07:19 05/30/20 10:50 Glucose (Fingerstick) 134 mg/dL (70-99) 177 mg/dL (70-99) 153 mg/dL (70-99) 138 mg/dL (70-99) Test 05/30/20 12:38 05/30/20 15:50 05/30/20 20:47 05/31/20 08:29 White Blood Count 7.0 x10^3/uL (4.0-11.0) Red Blood Count 4.29 x10^6/uL (3.50-5.40) Hemoglobin 12.5 g/dL (12.0-15.5) Hematocrit 37.0 % (36.0-47.0) Mean Corpuscular Volume 86 fL (79-100) Mean Corpuscular Hemoglobin 29 pg (25-35) Mean Corpuscular Hemoglobin Concent 34 g/dL (31-37) Red Cell Distribution Width 13.3 % (11.5-14.5) Platelet Count 287 x10^3/uL (140-400) Neutrophils (%) (Auto) 75 % (31-73) Lymphocytes (%) (Auto) 14 % (24-48) Monocytes (%) (Auto) 10 % (0-9) Eosinophils (%) (Auto) 1 % (0-3) Basophils (%) (Auto) 0 % (0-3) Neutrophils # (Auto) 5.2 x10^3/uL (1.8-7.7) Lymphocytes # (Auto) 1.0 x10^3/uL (1.0-4.8) Monocytes # (Auto) 0.7 x10^3/uL (0.0-1.1) Eosinophils # (Auto) 0.0 x10^3/uL (0.0-0.7) Basophils # (Auto) 0.0 x10^3/uL (0.0-0.2) Sodium Level 130 mmol/L (136-145) Potassium Level 4.1 mmol/L (3.5-5.1) Chloride Level 95 mmol/L (98-107) Carbon Dioxide Level 27 mmol/L (21-32) Anion Gap 8 (6-14) Blood Urea Nitrogen 13 mg/dL (7-20) Creatinine 0.8 mg/dL (0.6-1.0) Estimated GFR (Cockcroft-Gault) 70.3 BUN/Creatinine Ratio 16 (6-20) Glucose Level 126 mg/dL (70-99) Calcium Level 8.4 mg/dL (8.5-10.1) Phosphorus Level 2.9 mg/dL (2.6-4.7) Magnesium Level 1.8 mg/dL (1.8-2.4) Total Bilirubin 0.9 mg/dL (0.2-1.0) Aspartate Amino Transf (AST/SGOT) 24 U/L (15-37) Alanine Aminotransferase (ALT/SGPT) 24 U/L (14-59) Alkaline Phosphatase 82 U/L (46-116) Total Protein 7.1 g/dL (6.4-8.2) Albumin 3.3 g/dL (3.4-5.0) Albumin/Globulin Ratio 0.9 (1.0-1.7) Glucose (Fingerstick) 144 mg/dL (70-99) 131 mg/dL (70-99) 120 mg/dL (70-99) Laboratory Tests Test 05/30/20 12:38 05/30/20 15:50 05/30/20 20:47 05/31/20 08:29 White Blood Count 7.0 x10^3/uL (4.0-11.0) Red Blood Count 4.29 x10^6/uL (3.50-5.40) Hemoglobin 12.5 g/dL (12.0-15.5) Hematocrit 37.0 % (36.0-47.0) Mean Corpuscular Volume 86 fL (79-100) Mean Corpuscular Hemoglobin 29 pg (25-35) Mean Corpuscular Hemoglobin Concent 34 g/dL (31-37) Red Cell Distribution Width 13.3 % (11.5-14.5) Platelet Count 287 x10^3/uL (140-400) Neutrophils (%) (Auto) 75 % (31-73) Lymphocytes (%) (Auto) 14 % (24-48) Monocytes (%) (Auto) 10 % (0-9) Eosinophils (%) (Auto) 1 % (0-3) Basophils (%) (Auto) 0 % (0-3) Neutrophils # (Auto) 5.2 x10^3/uL (1.8-7.7) Lymphocytes # (Auto) 1.0 x10^3/uL (1.0-4.8) Monocytes # (Auto) 0.7 x10^3/uL (0.0-1.1) Eosinophils # (Auto) 0.0 x10^3/uL (0.0-0.7) Basophils # (Auto) 0.0 x10^3/uL (0.0-0.2) Sodium Level 130 mmol/L (136-145) Potassium Level 4.1 mmol/L (3.5-5.1) Chloride Level 95 mmol/L (98-107) Carbon Dioxide Level 27 mmol/L (21-32) Anion Gap 8 (6-14) Blood Urea Nitrogen 13 mg/dL (7-20) Creatinine 0.8 mg/dL (0.6-1.0) Estimated GFR (Cockcroft-Gault) 70.3 BUN/Creatinine Ratio 16 (6-20) Glucose Level 126 mg/dL (70-99) Calcium Level 8.4 mg/dL (8.5-10.1) Phosphorus Level 2.9 mg/dL (2.6-4.7) Magnesium Level 1.8 mg/dL (1.8-2.4) Total Bilirubin 0.9 mg/dL (0.2-1.0) Aspartate Amino Transf (AST/SGOT) 24 U/L (15-37) Alanine Aminotransferase (ALT/SGPT) 24 U/L (14-59) Alkaline Phosphatase 82 U/L (46-116) Total Protein 7.1 g/dL (6.4-8.2) Albumin 3.3 g/dL (3.4-5.0) Albumin/Globulin Ratio 0.9 (1.0-1.7) Glucose (Fingerstick) 144 mg/dL (70-99) 131 mg/dL (70-99) 120 mg/dL (70-99) Medications Current Medications Ondansetron HCl (Zofran Odt) 4 mg 1X ONCE PO Last administered on 05/28/20at 20:57; Start 05/28/20 at 20:30; Stop 05/28/20 at 20:31; Status DC Iohexol (Omnipaque 300 Mg/ml) 75 ml 1X ONCE IV Last administered on 05/28/20at 22:47; Start 05/28/20 at 22:00; Stop 05/28/20 at 22:01; Status DC Info (CONTRAST GIVEN -- Rx MONITORING) 1 each PRN DAILY PRN MC SEE COMMENTS; Start 05/28/20 at 21:45; Stop 05/30/20 at 21:44; Status DC Aspirin (Aspirin Chewable) 243 mg 1X ONCE PO Last administered on 05/28/20at 23:49; Start 05/28/20 at 23:00; Stop 05/28/20 at 23:01; Status DC Ondansetron HCl (Zofran) 4 mg PRN Q8HRS PRN IV NAUSEA/VOMITING 1ST CHOICE; Start 05/28/20 at 23:30; Stop 05/29/20 at 23:29; Status DC Cetirizine HCl (ZyrTEC) 10 mg DAILY PO Last administered on 8/31/20at 10:43; Start 05/29/20 at 09:00 Aspirin (Ecotrin) 81 mg DAILYWBKFT PO Last administered on 05/31/20 10:43; Start 05/29/20 at 09:30 Atorvastatin Calcium (Lipitor) 40 mg QHS PO Last administered on 05/30/20 22:16; Start 05/29/20 at 21:00 Insulin Human Lispro (HumaLOG) 0-7 UNITS TIDWMEALS SQ Last administered on 05/30/20 08:42; Start 05/29/20 at 17:00 Dextrose (Dextrose 50%-Water Syringe) 12.5 gm PRN Q15MIN PRN IV SEE COMMENTS; Start 05/29/20 at 12:15 Aspirin (Ecotrin) 81 mg DAILY07 PO ; Start 05/30/20 at 07:00; Stop 05/29/20 at 13:08; Status DC EZETIMIBE (Zetia) 10 mg DAILY PO Last administered on 05/31/20 10:43; Start 05/30/20 at 09:00 Losartan Potassium (Cozaar) 50 mg DAILY PO Last administered on 05/31/20 10:44; Start 05/30/20 at 09:00 Metoprolol Succinate (Toprol Xl) 25 mg BID PO Last administered on 05/31/20 10:43; Start 05/29/20 at 21:00 Pantoprazole Sodium (Protonix) 40 mg DAILYAC PO Last administered on 05/31/20 10:44; Start 05/30/20 at 07:30 Ondansetron HCl (Zofran) 4 mg PRN Q6HRS PRN IVP NAUSEA/VOMITING; Start 05/30/20 at 09:00 Enoxaparin Sodium (Lovenox 40mg Syringe) 40 mg Q24H SQ Last administered on 05/31/20 10:46; Start 05/30/20 at 09:00 Multivitamins (Thera M Plus) 1 tab DAILY PO Last administered on 05/31/20 10:43; Start 05/30/20 at 09:00 Fish Oil (Fish Oil) 1,000 mg DAILY PO Last administered on 05/31/20 10:43; Start 05/30/20 at 09:00 Hydralazine HCl (Apresoline Inj) 10 mg PRN Q4HRS PRN IVP FOR SBP > 160; Start 05/29/20 at 13:15 Clopidogrel Bisulfate (Plavix) 75 mg DAILYWBKFT PO Last administered on 05/31/20at 10:43; Start 05/31/20 at 08:00 Active Scripts Active Clopidogrel (Clopidogrel Bisulfate) 75 Mg Tablet 75 Mg PO DAILYWBKFT 30 Days Zofran (Ondansetron Hcl) 4 Mg Tablet 1 Tab PO Q6HRS PRN [Pantoprazole] 40 MG Tablet. 40 Mg PO DAILYAC 30 Days Reported Metoprolol Succinate ( Xl ) (Metoprolol Succinate) 25 Mg Tab.er.24h 1 Tab PO BID Gabapentin 600 Mg Tablet 100 Mg PO TID Questran Packet (Cholestyramine (With Sugar)) 4 Gm Powd.pack 4 Gm PO BID Fish Oil 1,400 Mg Softgel ([place]-3/Dha/Epa/Fish Oil) 1 Each Capsule.dr 1 Each PO DAILY Calcium (Calcium Carbonate) 600 Mg Tablet 1,200 Mg PO DAILY Multivitamins (Multivitamin) 1 Each Tablet 1 Tab PO DAILY Metformin Hcl 850 Mg Tablet 850 Mg PO TIDWMEALS Aspir 81 (Aspirin) 81 Mg Tablet. 1 Tab PO DAILY Zetia (Ezetimibe) 10 Mg Tablet 1 Tab PO DAILY Losartan Potassium 50 Mg Tablet 50 Mg PO DAILY Vitals/I & O Vital Sign - Last 24 Hours 05/30/20 05/30/20 05/30/20 05/30/20 15:10 19:00 20:00 22:17 Temp 98.8 98.8 98.8 98.8 Pulse 62 60 60 Resp 21 16 B/P (MAP) 157/67 (97) 177/75 (109) 168/69 Pulse Ox 99 94 O2 Delivery Room Air Room Air Room Air 05/30/20 05/31/20 05/31/20 05/31/20 23:00 03:05 07:00 10:43 Temp 98.9 98.5 98.3 97.8 98.9 98.5 98.3 97.8 Pulse 60 59 56 57 Resp 18 18 18 18 B/P (MAP) 168/69 (102) 135/69 (91) 173/74 (107) 183/71 (108) Pulse Ox 93 97 94 97 O2 Delivery Room Air Room Air Room Air Room Air 05/31/20 05/31/20 10:43 10:44 Pulse 56 57 B/P (MAP) 173/74 183/71 Intake and Output 05/30/20 05/30/20 05/31/20 15:00 23:00 07:00 Intake Total 360 ml 180 ml Balance 360 ml 180 ml Justicifation of Admission Dx: Justifications for Admission: Justification of Admission Dx: Yes Stroke - Ischemic: Stroke-Ischemic TYSON MACKENZIE MD May 31, 2020 11:33
--- NOTE | 2020-05-31 11:41 | PDOC2 ---
HARISH MACKAY [employer] SALES ENGINEER 05/31/20 1141: CARDIAC CONSULT DATE OF CONSULT Date of Consult DATE: 05/31/20 TIME: 11:35 REASON FOR CONSULT Reason for Consult: Syncope REFERRING PHYSICIAN Referring Physician: Dr. Tubbs SOURCE Source: Chart review, Patient HISTORY OF PRESENT ILLNESS HISTORY OF PRESENT ILLNESS This is a 75 yo female who presented secondary to dizziness. Further imaging notable for acute to subacute left inferior cerebellar infarct. Denies any chest pain, diaphoresis, palpitations, or SOA. Dizziness has improved since admission. Did feel nauseated upon standing with PT earlier today. PAST MEDICAL HISTORY Cardiovascular: HTN, Hyperlipidemia GI: GERD Endocrine: Diabetes PAST SURGICAL HISTORY Past Surgical History: Tonsillectomy FAMILY HISTORY Family History: Diabetes, Heart Disease, Stroke SOCIAL HISTORY Smoke: No ALCOHOL: none Drugs: None Lives: with Family CURRENT MEDICATIONS CURRENT MEDICATIONS Current Medications Medications (Trade) Dose Ordered Sig/John Route PRN Reason Start Time Stop Time Status Last Admin Dose Admin Clopidogrel Bisulfate (Plavix) 75 mg DAILYWBKFT PO 05/31/20 08:00 05/31/20 10:43 ALLERGIES ALLERGIES: Coded Allergies: amoxicillin (Verified Allergy, Intermediate, 02/10/19) pt claimed she felt she could hardly swallow ampicillin (Verified Allergy, Intermediate, 06/18/18) pt doesnt remember/know her rxn. claimed her doctor told her shes allergic to ampicillin mercury (elemental) (Verified Allergy, Intermediate, 06/18/18) ROS Review of System 14 point ROS conducted with pertinent positives noted above in HPI PHYSICAL EXAM General: Alert, Oriented X3, Cooperative, No acute distress HEENT: Atraumatic, Mucous membr. moist/pink Lungs: Clear to auscultation Heart: Regular rate, Normal S1, Normal S2 Abdomen: Soft, No tenderness Extremities: No edema, Normal pulses Skin: No significant lesion Neuro: Normal speech, Sensation intact Psych/Mental Status: Mental status NL MUSCULOSKELETAL: Osteoarthritic changes both hands VITALS/I&O VITALS/I&O: Vital Signs Date Time Temp Pulse Resp B/P (MAP) Pulse Ox O2 Delivery O2 Flow Rate FiO2 05/31/20 10:44 57 183/71 05/31/20 10:43 97.8 18 97 Room Air 97.8 I & O 05/30/20 05/30/20 05/31/20 15:00 23:00 07:00 Intake Total 360 ml 180 ml Balance 360 ml 180 ml LABS Lab: Laboratory Tests Test 05/30/20 12:38 05/30/20 15:50 05/30/20 20:47 05/31/20 08:29 White Blood Count 7.0 x10^3/uL (4.0-11.0) Red Blood Count 4.29 x10^6/uL (3.50-5.40) Hemoglobin 12.5 g/dL (12.0-15.5) Hematocrit 37.0 % (36.0-47.0) Mean Corpuscular Volume 86 fL (79-100) Mean Corpuscular Hemoglobin 29 pg (25-35) Mean Corpuscular Hemoglobin Concent 34 g/dL (31-37) Red Cell Distribution Width 13.3 % (11.5-14.5) Platelet Count 287 x10^3/uL (140-400) Neutrophils (%) (Auto) 75 % (31-73) H Lymphocytes (%) (Auto) 14 % (24-48) L Monocytes (%) (Auto) 10 % (0-9) H Eosinophils (%) (Auto) 1 % (0-3) Basophils (%) (Auto) 0 % (0-3) Neutrophils # (Auto) 5.2 x10^3/uL (1.8-7.7) Lymphocytes # (Auto) 1.0 x10^3/uL (1.0-4.8) Monocytes # (Auto) 0.7 x10^3/uL (0.0-1.1) Eosinophils # (Auto) 0.0 x10^3/uL (0.0-0.7) Basophils # (Auto) 0.0 x10^3/uL (0.0-0.2) Sodium Level 130 mmol/L (136-145) L Potassium Level 4.1 mmol/L (3.5-5.1) Chloride Level 95 mmol/L (98-107) L Carbon Dioxide Level 27 mmol/L (21-32) Anion Gap 8 (6-14) Blood Urea Nitrogen 13 mg/dL (7-20) Creatinine 0.8 mg/dL (0.6-1.0) Estimated GFR (Cockcroft-Gault) 70.3 BUN/Creatinine Ratio 16 (6-20) Glucose Level 126 mg/dL (70-99) H Calcium Level 8.4 mg/dL (8.5-10.1) L Phosphorus Level 2.9 mg/dL (2.6-4.7) Magnesium Level 1.8 mg/dL (1.8-2.4) Total Bilirubin 0.9 mg/dL (0.2-1.0) Aspartate Amino Transferase (AST) 24 U/L (15-37) Alanine Aminotransferase (ALT) 24 U/L (14-59) Alkaline Phosphatase 82 U/L (46-116) Total Protein 7.1 g/dL (6.4-8.2) Albumin 3.3 g/dL (3.4-5.0) L Albumin/Globulin Ratio 0.9 (1.0-1.7) L Glucose (Fingerstick) 144 mg/dL (70-99) H 131 mg/dL (70-99) H 120 mg/dL (70-99) H Laboratory Tests 05/30/20 12:38 Laboratory Tests 05/30/20 12:38 ASSESSMENT/PLAN ASSESSMENT/PLAN 1. Dizziness, near syncope; MRI with acute/subacute left inferior cerebellar infarct . As per neurology 2. Accelerated hypertension; remains labile 3. Hyperlipidemia ; statin 4. Diabetes, II; as per PCP 5. bradycardia, sinus; no significant pauses. Recommendations Echo today Secondary prevention including ASA, statin, Plavix therapy Continue metoprolol, losartan. Will add amlodipine Rehab modalities. Okay to discharge later today from a CV standpoint. DALLAS CORRAL MD 05/31/20 1711: CARDIAC CONSULT ASSESSMENT/PLAN ASSESSMENT/PLAN Patient seen and examined. Agree with [employer] ACREAGE MEASURER's assessment and plan. Patient presented with near syncope and diagnosed with acute/subacute left cerebellar infarct. Continue work-up per neurology team. 2D echo showed normal LV function without any structural abnormalities. Telemetry did not show any significant arrhythmias. If work-up is negative, we will consider outpatient loop recorder implantation. Thank you for your consultation. HARISH MACKAY APRN May 31, 2020 11:41 DALLAS CORRAL MD May 31, 2020 17:11
--- NOTE | 2020-05-31 11:53 | CARD ---
MR#: [id number] Date of Study: 05/31/2020 Ordering Physician: ELLA DODSON, Referring Physician: ELLA DODSON, Tech: Iliana Yeung APPROVED REPORT EXAM: Two-dimensional and M-mode echocardiogram with Doppler and color Doppler. Other Information Quality : AverageHR: 55bpm Technically limited study due to Supine scan INDICATION CVA/TIA Dizziness and Vertigo RISK FACTORS Hyperlipidemia Diabetes 2D DIMENSIONS RVDd2.6 (2.9-3.5cm)Left Atrium(2D)2.2 (1.6-4.0cm) IVSd1.0 (0.7-1.1cm)Aortic Root(2D)2.8 (2.0-3.7cm) LVDd4.0 (3.9-5.9cm)LVOT Diameter1.9 (1.8-2.4cm) PWd1.0 (0.7-1.1cm)LVDs2.2 (2.5-4.0cm) FS (%) 44.9 %SV54.0 ml Aortic Valve AoV Peak Norberto.121.7cm/sAoV VTI30.0cm AO Peak GR.5.9mmHgLVOT Peak Norberto.94.4cm/s LVOT VTI 24.47cmAO Mean GR.3mmHg OCTAVIANO (VMAX)1.13ac2SPC (VTI)2.41cm2 Mitral Valve MV E Osxagrtw17.2cm/sMV DECEL WELE602gv MV A Quzyofji042.6cm/sMV E Mean Gr.3mmHg MV BUM50sfD/A Ratio0.8 MVA (PHT)2.69cm2 TDI E/Lateral E'12.7E/Medial E'10.3 Pulmonary Valve PV Peak Qwvxzkio768.2cm/sPV Peak Grad.4mmHg Tricuspid Valve TR P. Rdedmiod054fj/sRAP MZPPYGKR6feQr TR Peak Gr.53vfSxVZWP85lsCu Pulmonary Vein S1 Pcwezjbo04.9cm/sD2 Cdjjkeva88.1cm/s PVa nzdbidxq769dsgh LEFT VENTRICLE The left ventricle is normal size. There is borderline concentric left ventricular hypertrophy. The l eft ventricular systolic function is normal and the ejection fraction is within normal range. The Eje ction Fraction is 55-60%. There is normal LV segmental wall motion. Transmitral Doppler flow pattern is Grade I-abnormal relaxation pattern. RIGHT VENTRICLE The right ventricle is normal size. There is normal right ventricular wall thickness. The right ventr icular systolic function is normal. ATRIA The left atrium size is normal. The right atrium size is normal. The interatrial septum is intact wit h no evidence for an atrial septal defect or patent foramen ovale as noted on 2-D or Doppler imaging. AORTIC VALVE The aortic valve is normal in structure and function. Doppler and Color Flow revealed no significant aortic regurgitation. There is no significant aortic valvular stenosis. Calculated aortic valve area is 2.22 cm2 with maximum pressure gradient of 6 mmHg and mean pressure gradient of 3 mmHg. MITRAL VALVE The mitral valve is normal in structure and function. There is no evidence of mitral valve prolapse. There is no mitral valve stenosis with an mean gradient of 3.6 mmHg. Doppler and Color-flow revealed trace mitral regurgitation. TRICUSPID VALVE The tricuspid valve is normal in structure and function. Doppler and Color Flow revealed trace tricus pid regurgitation with an estimated PAP of 27 mmHg. There is no tricuspid valve stenosis. PULMONIC VALVE The pulmonic valve is not well visualized. Doppler and Color Flow revealed no pulmonic valvular regur gitation. GREAT VESSELS The aortic root is normal in size. The ascending aorta is normal in size. The IVC is normal in size a nd collapses >50% with inspiration. PERICARDIAL EFFUSION There is no evidence of significant pericardial effusion. Critical Notification Critical Value: No <Conclusion> The left ventricle is normal size. The left ventricular systolic function is normal and the ejection fraction is within normal range. The Ejection Fraction is 55-60%. There is borderline concentric left ventricular hypertrophy. Doppler and Color Flow revealed no significant aortic regurgitation. There is no significant aortic valvular stenosis. Doppler and Color-flow revealed trace mitral regurgitation. Doppler and Color Flow revealed trace tricuspid regurgitation with an estimated PAP of 27 mmHg. Signed by : Walter Sorensen MD Electronically Approved : 05/31/2020 11:52:46
[2020-05-31] MEDS: amLODIPine BESYLATE 5 MG TABLET PO SCH (12:08)
--- NOTE | 2020-05-31 14:57 | NUR ---
SW following. Spoke with RN and reviewed chart. Pt to discharge home today with brother and HH. JAYLEN spoke with pt who is requesting referral to [facility]. Completed Patient Choice of Vendor form. JAYLEN phoned and faxed referral to [facility] and [facility] for admissions. JAYLEN waiting to hear back on if [facility] has accepted this pt. Pt also agreeable to [facility] if [facility] can't accept. Pt COVID negative. Pt on room air and oral medications. 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 Addendum: 05/31/20 at 1517 by AGUILAR YORK [facility] has accepted this pt per Janet. No further JAYLEN needs
[2020-05-31 15:13] VITALS: BP 184/89
--- NOTE | 2020-05-31 15:30 | NUR ---
Physical therapy notified RN that pt was feeling nauseous after therapy session. Pt states that she has not been able to tolerate eating very much today. Her BP is elevated at 184/89 HR 56. Pt and Pt's brother expresses concern about discharging today as she is feeling unwell, unable to tolerate food, and high blood pressure. This RN administered zofran and hydralazine. Dr. Tiwari paged and informed of changes and concerns. Orders received to administer medication as needed, hold discharge, and he will reevaluate in the morning. Will continue to monitor.
[2020-05-31 19:01] VITALS: BP 136/61
[2020-05-31] MEDS: ATORVASTATIN CALCIUM 40 MG TABLET. PO SCH (22:31)
[2020-05-31 23:00] VITALS: BP 129/62
[2020-06-01 02:46] VITALS: BP 116/54
[2020-06-01 07:00] VITALS: BP 132/64
[2020-06-01] MEDS: INSULIN LISPRO 300 UNITS/3 ML VIAL. SQ SCH (08:00)
--- NOTE | 2020-06-01 08:37 | PDOC ---
PROGRESS NOTES Date of Service: DATE: 06/01/20 TIME: 08:37 Objective Objective Vital Signs Date Time Temp Pulse Resp B/P (MAP) Pulse Ox O2 Delivery O2 Flow Rate FiO2 06/01/20 07:00 98.8 58 18 132/64 (86) 95 Room Air 98.8 Intake and Output 06/01/20 06:59 Intake Total 700 ml Output Total 0 ml Balance 700 ml Intake Oral 700 ml Output Urine Total 0 ml # Voids 2 Physical Exam Abdomen: Soft, No tenderness Heart: Regular rate, Normal S1, Normal S2 Extremities: No edema, Normal pulses General: Alert, Oriented X3, Cooperative, No acute distress HEENT: Atraumatic, Mucous membr. moist/pink Lungs: Clear to auscultation MUSCULOSKELETAL: Osteoarthritic changes both hands Neck: Supple Neuro: Normal speech, Sensation intact Psych/Mental Status: Mental status NL Skin: No significant lesion Diagnosis Problem List Problems Medical Problems: (1) CVA (cerebral vascular accident) Status: Acute (2) Diabetes Status: Acute (3) GERD (gastroesophageal reflux disease) Status: Acute (4) Hyperlipidemia Status: Acute (5) Hypertension Status: Acute Assessment Assessment 1. Acute versus subacute cerebellar cerebrovascular accident. 2. Hypertension, not controlled. 3. Bradycardia. 4. Diabetes mellitus type 2. 5. Gastroesophageal reflux disease. 6. Essential tremors. PLAN: MRI showed cerebellar ischemic stroke. carotid ok echo pending going home on asa+plavix cannot tolerate ststins. d/c home with home health later today. Consult PT, OT. Consult Dr. Alves for further evaluation and management for Neurology evaluation and management. Continue to monitor blood sugar. I will start her on IV hydralazine p.r.n. for elevated blood pressure. For details, please refer to the orders. Acute cerebellar CVA - Brain MRI ordered. Syncope- consult Cardiology. Plan Plan of Care Problems Medical Problems: (1) CVA (cerebral vascular accident) Status: Acute (2) Diabetes Status: Acute (3) GERD (gastroesophageal reflux disease) Status: Acute (4) Hyperlipidemia Status: Acute (5) Hypertension Status: Acute Comment Review of Relevant I have reviewed the following items julianna (where applicable) has been applied. Labs Laboratory Tests Test 05/31/20 11:48 05/31/20 16:36 05/31/20 20:41 06/01/20 07:54 Glucose (Fingerstick) 149 mg/dL (70-99) 175 mg/dL (70-99) 171 mg/dL (70-99) 143 mg/dL (70-99) Medications Current Medications Amlodipine Besylate (Norvasc) 5 mg DAILY PO Last administered on 05/31/20at 12:08; Start 05/31/20 at 12:00 Vitals/I & O Vital Sign - Last 24 Hours 05/31/20 05/31/20 05/31/20 05/31/20 10:43 10:43 10:44 12:08 Temp 97.8 97.8 Pulse 57 56 57 58 Resp 18 B/P (MAP) 183/71 (108) 173/74 183/71 159/78 Pulse Ox 97 O2 Delivery Room Air 05/31/20 05/31/20 05/31/20 05/31/20 15:09 15:13 19:01 22:31 Temp 97.9 98.7 97.9 98.7 Pulse 56 53 69 69 Resp 18 18 B/P (MAP) 184/89 184/89 (120) 136/61 (86) 136/61 Pulse Ox 93 95 O2 Delivery Room Air Room Air 05/31/20 06/01/20 06/01/20 23:00 02:46 07:00 Temp 97.9 98.4 98.8 97.9 98.4 98.8 Pulse 61 59 58 Resp 19 20 18 B/P (MAP) 129/62 (84) 116/54 (74) 132/64 (86) Pulse Ox 95 95 95 O2 Delivery Room Air Room Air Room Air Intake and Output 05/31/20 05/31/20 06/01/20 14:59 22:59 06:59 Intake Total 600 ml 100 ml 0 ml Output Total 0 ml Balance 600 ml 100 ml 0 ml Justifications for Admission Other Justification JAMES CURTIS MD Jun 01, 2020 08:37
[2020-06-01] MEDS: amLODIPine BESYLATE 5 MG TABLET PO SCH (09:29)
[2020-06-01] MEDS: ASPIRIN ENTERIC COATED 81 MG TABLET.DR. PO SCH (09:29)
[2020-06-01] MEDS: CLOPIDOGREL BISULFATE 75 MG TABLET PO SCH (09:30)
[2020-06-01] MEDS: EZETIMIBE 10 MG TABLET. PO SCH (09:30)
[2020-06-01] MEDS: PANTOPRAZOLE 40 MG TABLET.DR. PO SCH (09:30)
[2020-06-01] MEDS: OMEGA-3 FATTY ACIDS/FISH OIL 1,000 MG CAPSULE. PO SCH (09:30)
[2020-06-01 09:31] VITALS: BP 132/64
[2020-06-01] MEDS: MULTIVITAMIN with MINERAL TABLET. PO SCH (09:31)
[2020-06-01] MEDS: CETIRIZINE HCL 10 MG TABLET. PO SCH (09:31)
[2020-06-01] MEDS: METOPROLOL SUCC 24HR ER 25 MG TAB.ER.24H. PO SCH (09:31)
[2020-06-01] MEDS: LOSARTAN POTASSIUM 50 MG TABLET. PO SCH (09:31)
[2020-06-01] MEDS: ENOXAPARIN 40 MG/0.4 ML SYRINGE. SQ SCH (09:32)
--- NOTE | 2020-06-01 11:05 | PDOC ---
HARISH MACKAY [employer]ACLE ADF CONSULTANT 06/01/20 1105: CARDIO Progress Notes Date and Time Date of Service 06/01/20 Time of Evaluation 1100 Subjective Subjective: No Chest Pain, No shortness of breath, No Palpitations, Other (dizziness improved ) Vitals Vitals Vital Signs Date Time Temp Pulse Resp B/P (MAP) Pulse Ox O2 Delivery O2 Flow Rate FiO2 06/01/20 09:31 58 132/64 06/01/20 08:00 Room Air 06/01/20 07:00 98.8 18 95 98.8 Weight Weight [ ] Input and Output Intake and Output Intake and Output 06/01/20 07:00 Intake Total 700 ml Output Total 0 ml Balance 700 ml Intake Oral 700 ml Output Urine Total 0 ml # Voids 2 Laboratory Labs Laboratory Tests Test 05/31/20 11:48 05/31/20 16:36 05/31/20 20:41 06/01/20 07:54 Glucose (Fingerstick) 149 mg/dL (70-99) 175 mg/dL (70-99) 171 mg/dL (70-99) 143 mg/dL (70-99) Physical Exam HEENT: Neck Supple W Full Motion Chest: Symmetric LUNGS: Clear to Auscultation Heart: RRR Abdomen: Soft N/T Extremities: No Edema Neurology: alert, oriented, follow commands Assessment Assessment 1. Dizziness, near syncope; MRI with acute/subacute left inferior cerebellar infarct . Echo with preserved LV systolic function. No structural abnormalities. As per neurology 2. Accelerated hypertension; remains labile 3. Hyperlipidemia ; statin 4. Diabetes, II; as per PCP 5. Bradycardia, sinus; no significant pauses or arrhythmias noted on tele. Recommendations Secondary prevention including ASA, statin, Plavix therapy Continue metoprolol, losartan, amlodipine Rehab modalities. Consider outpatient loop recorder Okay to discharge later today from a CV standpoint. Follow up in our office with Dr. Barajas as scheduled. Justicifation of Admission Dx: Justifications for Admission: Justification of Admission Dx: Yes Stroke - Ischemic: Stroke-Ischemic DALLAS BARAJAS MD 06/01/203: CARDIO Progress Notes Assessment Assessment Patient seen and examined. Agree with CHUCK BONER's assessment and plan. Continue work-up per neurology team for acute/subacute left cerebellar infarct. 2D echo showed normal LV function without any structural abnormalities. Telemetry did not show any significant arrhythmias. If work-up is negative, we will consider outpatient loop recorder implantation. HARISH MACKAY APRN Jun 01, 2020 11:05 DALLAS BARAJAS MD Jun 01, 2020 22:03
--- NOTE | 2020-06-01 11:50 | NUR ---
Discharge Note: PERFECTO DOTY [address] Discharge instructions and discharge home medications reviewed with patient and a copy given. All questions have been answered and understanding verbalized. The following instructions and handouts were given: Take home meds as directed. Patient teaching done about her new meds, clopidogrel and amlodipine Watch out for new onset weakness, slurred speech, severe headache, loss of balance Follow up with Dr. Tiwari in a week Follow up with Dr. Barajas on Jun 30, 0930AM. Discontinued lines and drains: peripheral IV intact, patient tolerated removal Patient discharged to home with home health via wheelchair accompanied by a family member at 1130
--- NOTE | 2020-06-01 12:26 | PDOC ---
PROGRESS NOTES Date of Service DATE: 06/01/20 TIME: 12:24 Assessment Problems Medical Problems: (1) CVA (cerebral vascular accident) Status: Acute (2) Diabetes Status: Acute (3) GERD (gastroesophageal reflux disease) Status: Acute (4) Hyperlipidemia Status: Acute (5) Hypertension Status: Acute Left cerebellar stroke Hypertension Hyperlipidemia Essential tremor Plan Okay for discharge Statin, aspirin, clopidogrel Discussed risks of dual antiplatelet agents, including fatal bleeding Home rehabilitation Follow-up with neurology as needed. Subjective No complaints Objective Vital Signs Date Time Temp Pulse Resp B/P (MAP) Pulse Ox O2 Delivery O2 Flow Rate FiO2 06/01/20 09:31 58 132/64 06/01/20 08:00 Room Air 06/01/20 07:00 98.8 18 95 98.8 Intake and Output 06/01/20 07:00 Intake Total 700 ml Output Total 0 ml Balance 700 ml Intake Oral 700 ml Output Urine Total 0 ml # Voids 2 PHYSICAL EXAM Alert. Oriented to time, place and person. PERRL. EOMI. CN: no focal findings. Muscle tone: normal. Muscle strength: 5/5 DTR: 2+ Plantar reflex: flexor Gait: does well with walker. Sensory exam: no abnormal findings. Left cerebellar dysmetria, also has bilateral mild postural tremor Review of Relevant I have reviewed the following items julianna (where applicable) has been applied. Labs Laboratory Tests Test 05/30/20 12:38 05/30/20 15:50 05/30/20 20:47 05/31/20 08:29 White Blood Count 7.0 x10^3/uL (4.0-11.0) Red Blood Count 4.29 x10^6/uL (3.50-5.40) Hemoglobin 12.5 g/dL (12.0-15.5) Hematocrit 37.0 % (36.0-47.0) Mean Corpuscular Volume 86 fL (79-100) Mean Corpuscular Hemoglobin 29 pg (25-35) Mean Corpuscular Hemoglobin Concent 34 g/dL (31-37) Red Cell Distribution Width 13.3 % (11.5-14.5) Platelet Count 287 x10^3/uL (140-400) Neutrophils (%) (Auto) 75 % (31-73) Lymphocytes (%) (Auto) 14 % (24-48) Monocytes (%) (Auto) 10 % (0-9) Eosinophils (%) (Auto) 1 % (0-3) Basophils (%) (Auto) 0 % (0-3) Neutrophils # (Auto) 5.2 x10^3/uL (1.8-7.7) Lymphocytes # (Auto) 1.0 x10^3/uL (1.0-4.8) Monocytes # (Auto) 0.7 x10^3/uL (0.0-1.1) Eosinophils # (Auto) 0.0 x10^3/uL (0.0-0.7) Basophils # (Auto) 0.0 x10^3/uL (0.0-0.2) Sodium Level 130 mmol/L (136-145) Potassium Level 4.1 mmol/L (3.5-5.1) Chloride Level 95 mmol/L (98-107) Carbon Dioxide Level 27 mmol/L (21-32) Anion Gap 8 (6-14) Blood Urea Nitrogen 13 mg/dL (7-20) Creatinine 0.8 mg/dL (0.6-1.0) Estimated GFR (Cockcroft-Gault) 70.3 BUN/Creatinine Ratio 16 (6-20) Glucose Level 126 mg/dL (70-99) Calcium Level 8.4 mg/dL (8.5-10.1) Phosphorus Level 2.9 mg/dL (2.6-4.7) Magnesium Level 1.8 mg/dL (1.8-2.4) Total Bilirubin 0.9 mg/dL (0.2-1.0) Aspartate Amino Transf (AST/SGOT) 24 U/L (15-37) Alanine Aminotransferase (ALT/SGPT) 24 U/L (14-59) Alkaline Phosphatase 82 U/L (46-116) Total Protein 7.1 g/dL (6.4-8.2) Albumin 3.3 g/dL (3.4-5.0) Albumin/Globulin Ratio 0.9 (1.0-1.7) Glucose (Fingerstick) 144 mg/dL (70-99) 131 mg/dL (70-99) 120 mg/dL (70-99) Test 05/31/20 11:48 05/31/20 16:36 05/31/20 20:41 06/01/20 07:54 Glucose (Fingerstick) 149 mg/dL (70-99) 175 mg/dL (70-99) 171 mg/dL (70-99) 143 mg/dL (70-99) Laboratory Tests Test 05/31/20 16:36 05/31/20 20:41 06/01/20 07:54 Glucose (Fingerstick) 175 mg/dL (70-99) 171 mg/dL (70-99) 143 mg/dL (70-99) Medications Current Medications Ondansetron HCl (Zofran Odt) 4 mg 1X ONCE PO Last administered on 05/28/20at 20:57; Start 05/28/20 at 20:30; Stop 05/28/20 at 20:31; Status DC Iohexol (Omnipaque 300 Mg/ml) 75 ml 1X ONCE IV Last administered on 05/28/20at 22:47; Start 05/28/20 at 22:00; Stop 05/28/20 at 22:01; Status DC Info (CONTRAST GIVEN -- Rx MONITORING) 1 each PRN DAILY PRN MC SEE COMMENTS; Start 05/28/20 at 21:45; Stop 05/30/20 at 21:44; Status DC Aspirin (Aspirin Chewable) 243 mg 1X ONCE PO Last administered on 05/28/20at 23:49; Start 05/28/20 at 23:00; Stop 05/28/20 at 23:01; Status DC Ondansetron HCl (Zofran) 4 mg PRN Q8HRS PRN IV NAUSEA/VOMITING 1ST CHOICE; Start 05/28/20 at 23:30; Stop 05/29/20 at 23:29; Status DC Cetirizine HCl (ZyrTEC) 10 mg DAILY PO Last administered on 06/01/20at 09:31; Start 05/29/20 at 09:00 Aspirin (Ecotrin) 81 mg DAILYWBKFT PO Last administered on 06/01/20at 09:29; Start 05/29/20 at 09:30 Atorvastatin Calcium (Lipitor) 40 mg QHS PO Last administered on 05/31/20at 22:31; Start 05/29/20 at 21:00 Insulin Human Lispro (HumaLOG) 0-7 UNITS TIDWMEALS SQ Last administered on 05/31/20at 18:05; Start 05/29/20 at 17:00 Dextrose (Dextrose 50%-Water Syringe) 12.5 gm PRN Q15MIN PRN IV SEE COMMENTS; Start 05/29/20 at 12:15 Aspirin (Ecotrin) 81 mg DAILY07 PO ; Start 05/30/20 at 07:00; Stop 05/29/20 at 13:08; Status DC EZETIMIBE (Zetia) 10 mg DAILY PO Last administered on 06/01/20 09:30; Start 05/30/20 at 09:00 Losartan Potassium (Cozaar) 50 mg DAILY PO Last administered on 06/01/20 09:31; Start 05/30/20 at 09:00 Metoprolol Succinate (Toprol Xl) 25 mg BID PO Last administered on 06/01/20 09:31; Start 05/29/20 at 21:00 Pantoprazole Sodium (Protonix) 40 mg DAILYAC PO Last administered on 06/01/20 09:30; Start 05/30/20 at 07:30 Ondansetron HCl (Zofran) 4 mg PRN Q6HRS PRN IVP NAUSEA/VOMITING Last administered on 05/31/20 15:09; Start 05/30/20 at 09:00 Enoxaparin Sodium (Lovenox 40mg Syringe) 40 mg Q24H SQ Last administered on 06/01/20 09:32; Start 05/30/20 at 09:00 Multivitamins (Thera M Plus) 1 tab DAILY PO Last administered on 06/01/20 09:31; Start 05/30/20 at 09:00 Fish Oil (Fish Oil) 1,000 mg DAILY PO Last administered on 06/01/20 09:30; Start 05/30/20 at 09:00 Hydralazine HCl (Apresoline Inj) 10 mg PRN Q4HRS PRN IVP FOR SBP > 160 Last administered on 05/31/20 15:09; Start 05/29/20 at 13:15 Clopidogrel Bisulfate (Plavix) 75 mg DAILYWBKFT PO Last administered on 06/01/20 09:30; Start 05/31/20 at 08:00 Amlodipine Besylate (Norvasc) 5 mg DAILY PO Last administered on 06/01/20 09: 29; Start 05/31/20 at 12:00 Active Scripts Active Clopidogrel (Clopidogrel Bisulfate) 75 Mg Tablet 75 Mg PO DAILYWBKFT 30 Days Zofran (Ondansetron Hcl) 4 Mg Tablet 1 Tab PO Q6HRS PRN [Pantoprazole] 40 MG Tablet.dr 40 Mg PO DAILYAC 30 Days Reported Metoprolol Succinate ( Xl ) (Metoprolol Succinate) 25 Mg Tab.er.24h 1 Tab PO BID Gabapentin 600 Mg Tablet 100 Mg PO TID Questran Packet (Cholestyramine (With Sugar)) 4 Gm Powd.pack 4 Gm PO BID Fish Oil 1,400 Mg Softgel (Erie-3/Dha/Epa/Fish Oil) 1 Each Capsule.dr 1 Each PO DAILY Calcium (Calcium Carbonate) 600 Mg Tablet 1,200 Mg PO DAILY Multivitamins (Multivitamin) 1 Each Tablet 1 Tab PO DAILY Metformin Hcl 850 Mg Tablet 850 Mg PO TIDWMEALS Aspir 81 (Aspirin) 81 Mg Tablet.dr 1 Tab PO DAILY Zetia (Ezetimibe) 10 Mg Tablet 1 Tab PO DAILY Losartan Potassium 50 Mg Tablet 50 Mg PO DAILY Vitals/I & O Vital Sign - Last 24 Hours 05/31/20 05/31/20 05/31/20 05/31/20 15:09 15:13 19:01 22:31 Temp 97.9 98.7 97.9 98.7 Pulse 56 53 69 69 Resp 18 18 B/P (MAP) 184/89 184/89 (120) 136/61 (86) 136/61 Pulse Ox 93 95 O2 Delivery Room Air Room Air 05/31/20 06/01/20 06/01/20 06/01/20 23:00 02:46 07:00 08:00 Temp 97.9 98.4 98.8 97.9 98.4 98.8 Pulse 61 59 58 Resp 19 20 18 B/P (MAP) 129/62 (84) 116/54 (74) 132/64 (86) Pulse Ox 95 95 95 O2 Delivery Room Air Room Air Room Air Room Air 06/01/20 06/01/20 06/01/20 09:29 09:31 09:31 Pulse 58 58 58 B/P (MAP) 132/64 132/64 132/64 Intake and Output 05/31/20 05/31/20 06/01/20 15:00 23:00 07:00 Intake Total 600 ml 100 ml 0 ml Output Total 0 ml Balance 600 ml 100 ml 0 ml Images Echocardiogram: LEFT VENTRICLE The left ventricle is normal size. There is borderline concentric left ventricular hypertrophy. The left ventricular systolic function is normal and the ejection fraction is within normal range. The Ejection Fraction is 55-60%. There is normal LV segmental wall motion. Transmitral Doppler flow pattern is Grade I-abnormal relaxation pattern. RIGHT VENTRICLE The right ventricle is normal size. There is normal right ventricular wall thickness. The right ventricular systolic function is normal. ATRIA The left atrium size is normal. The right atrium size is normal. The interatrial septum is intact with no evidence for an atrial septal defect or patent foramen ovale as noted on 2-D or Doppler imaging. AORTIC VALVE The aortic valve is normal in structure and function. Doppler and Color Flow revealed no significant aortic regurgitation. There is no significant aortic valvular stenosis. Calculated aortic valve area is 2.22 cm2 with maximum pressure gradient of 6 mmHg and mean pressure gradient of 3 mmHg. MITRAL VALVE The mitral valve is normal in structure and function. There is no evidence of mitral valve prolapse. There is no mitral valve stenosis with an mean gradient of 3.6 mmHg. Doppler and Color-flow revealed trace mitral regurgitation. TRICUSPID VALVE The tricuspid valve is normal in structure and function. Doppler and Color Flow revealed trace tricuspid regurgitation with an estimated PAP of 27 mmHg. There is no tricuspid valve stenosis. PULMONIC VALVE The pulmonic valve is not well visualized. Doppler and Color Flow revealed no pulmonic valvular regurgitation. GREAT VESSELS The aortic root is normal in size. The ascending aorta is normal in size. The IVC is normal in size and collapses >50% with inspiration. PERICARDIAL EFFUSION There is no evidence of significant pericardial effusion. Critical Notification Critical Value: No <Conclusion> The left ventricle is normal size. The left ventricular systolic function is normal and the ejection fraction is within normal range. The Ejection Fraction is 55-60%. There is borderline concentric left ventricular hypertrophy. Doppler and Color Flow revealed no significant aortic regurgitation. There is no significant aortic valvular stenosis. Doppler and Color-flow revealed trace mitral regurgitation. Doppler and Color Flow revealed trace tricuspid regurgitation with an estimated PAP of 27 mmHg. Justicifation of Admission Dx: Justifications for Admission: Justification of Admission Dx: Yes Stroke - Ischemic: Stroke-Ischemic TYSON MACKENZIE MD Jun 01, 2020 12:26
--- NOTE | 2020-06-01 16:49 | NUR ---
SW following. Spoke with RN and reviewed chart. Pt's discharge held yesterday per elevated blood pressure. Pt to discharge home today, 06/01/2020 with family and [facility]. [facility] has accepted this pt. No further SW needs.
--- NOTE | 2020-06-02 15:43 | PDOC ---
Provider Note Date of Service: DATE: 06/02/20 TIME: 15:42 Provider Note Discharge summary dictated.#[id number]. Justifications for Admission Other Justification JAMES CURTIS MD Jun 02, 2020 15:43
--- NOTE | 2020-06-02 20:52 | DS ---
DATE OF DISCHARGE: 06/01/2020 REASON FOR ADMISSION TO HOSPITAL: Acute cerebellar stroke. CONSULTATION: Dr. De La Garza. PROCEDURES DONE: 1. CT head. 2. MRI of the brain. 3. Echocardiogram. 4. CT angiogram of the neck. HOSPITAL COURSE: The patient is a 75-year-old female. The patient was having dizziness, hard to ambulate, nausea and vomiting, was brought to the hospital. CT scan suggestive of cerebellar CVA. The patient had MRI of the brain, which shows a stroke of the left inferior cerebellar infarct and the patient was seen by Neurology, Physical Therapy. CT angiogram of the neck shows no blockages. Echocardiogram shows good left ventricular function. The patient was discharged on aspirin and Plavix. After a month, discontinue Plavix and stop aspirin. JAMES CURTIS MD DR: ISELA/meliton JOB#: [id number] / [id number]
== END 2020-06-01 13:22 | disposition home or self-care (01) | DRG 65 ==
LOC: ER 18:23 → ED HOLD 23:14 → 6 SOUTH 23:15
PROVIDERS: ADMIT Internal Medicine; ATTEND Internal Medicine
DX: I63.9 Cerebral infarction, unspecified (principal); E44.1 Mild protein-calorie malnutrition; E78.00 Pure hypercholesterolemia, unspecified; E78.5 Hyperlipidemia, unspecified; E11.9 Type 2 diabetes mellitus without complications; G25.0 Essential tremor; I10 Essential (primary) hypertension; K21.9 Gastro-esophageal reflux disease without esophagitis; Z79.82 Long term (current) use of aspirin; Z82.0 Family history of epilepsy and other diseases of the nervous system; Z82.3 Family history of stroke; Z83.3 Family history of diabetes mellitus; Z88.8 Allergy status to other drugs, medicaments and biological substances; Z68.21 Body mass index [BMI] 21.0-21.9, adult
CPT/HCPCS: 36415; 70450; 70496; 70498; 70551; 80048; 80053; 80061; 80329; 81001; 82962; 83735; 84100; 84484; 85007; 85025; 93005; 93306; 99285; J0360; J1650; J1815; J2405; Q9967; 92610-GN; 97116-GP; 97530-GP; G0378; G0480

== ENCOUNTER → 2020-07-06 | Outpatient (CLI) | payer MEDICARE, BC ==
[~2020-07-06] MED LIST changes: +CLOP75TA PO
--- NOTE | 2020-07-06 12:42 | CARD ---
MR#: [id number] Date of Study: 07/06/2020 Ordering Physician: DALLAS BARAJAS, Referring Physician: DALLAS BARAJAS, Tech: APPROVED REPORT PROCEDURE: Successful implantation of Biotronik Biomonitor III loop recorder INDICATIONS: Stroke of uncertain etiology r/o atrial fibrillation PROCEDURE DETAILS: An informed consent was obtained from patient. Patient was brought to the procedure suite and her le ft chest and shoulder were prepped and draped in the usual fashion. 20 mL of 2% lidocaine was infilt rated into the skin and subcutaneous tissues for local anesthesia. An incision was made in the left third intercostal space 1 inch from midsternal line and using the introducer provided with the kit a Biotronik Biomonitor III loop recorder serial number [id number] was placed in the subcutaneous tissue. The incision was closed in one layer. Hemostasis was secured. Patient tolerated the procedure well . There were no immediate complications. CONCLUSION: Successful implantation of Biotronik Biomonitor III loop recorder for stroke of uncertain etiology to rule out any significant arrhythmias. Signed by : Dallas Barajas, Electronically Approved : 07/06/2020 12:42:17
== END ==
LOC: LINQ 09:59
PROVIDERS: ATTEND Internal Medicine Cardiovascular Disease
DX: Z45.2 Encounter for adjustment and management of vascular access device (principal); I63.89 Other cerebral infarction; K21.9 Gastro-esophageal reflux disease without esophagitis; I10 Essential (primary) hypertension; E11.9 Type 2 diabetes mellitus without complications; E78.00 Pure hypercholesterolemia, unspecified; Z79.82 Long term (current) use of aspirin; Z88.8 Allergy status to other drugs, medicaments and biological substances; Z79.899 Other long term (current) drug therapy; Z83.3 Family history of diabetes mellitus; Z79.84 Long term (current) use of oral hypoglycemic drugs
CPT/HCPCS: 33285; C1764

== ENCOUNTER → 2021-03-23 | Outpatient (CLI) | payer MEDICARE, BC ==
[~2021-03-23] MED LIST changes: -CALC600T6 PO; +CALC600T60 PO; -OMEP40CA45 PO; +OMEP40CA7 PO; +REGADENOSON 0.4 MG/5 ML DISP.SYRIN. IV ONE
--- NOTE | 2021-03-24 11:50 | RAD ---
MR#: [id number] Date of Study: 03/23/2021 Ordering Physician: DALLAS CORRAL, Referring Physician: DANIELLE GARCIA Tech: ERIC Monroy, ARRT (R) (N) APPROVED REPORT Test Type: Pharmacological Stress Nurse/Tech: Kajal Murdock R.N. Test Indications: HARMAN Cardiac History: htn,dm Medications: see ehr Medical History: see ehr Resting ECG: sr Resting Heart Rate: 61 bpm Resting Blood Pressure: 156/61mmHg Pretest Chest Pain: No chest pain Nurse/Tech Notes lungs cta, heart tones regular Consent: The procedure was explained to the patient in lay terms. Informed consent was witnessed. Yovany eout was entered into [facility]. History and Stress Test performed by RT Cady Jane) (N) Pharm. Details Pharmacologic stress testing was performed using 0.4mg per 5ml of regadenoson given intravenously ove r 7-10 seconds. Stress Symptoms No chest pain or symptoms. POST EXERCISE Reason for Termination: Infusion complete Target HR: No Max HR: 91 bpm Max Blood Pressure: 156/75mmHg Chest Pain: No. Arrhythmia: No. ST Change: No. INTERPRETATION Stress EKG Conclusion: No evidence of stress induced EKG changes. Imaging Protocol IMAGE PROTOCOL: Rest Tc-99m/stress Tc-99m 1 day Rest: Stress: Viability: Radiopharm.Tc99m [id number] Sestamibi Dose10.5mCi 32mCi Img Date 03/23/2021 03/23/2021 Inj-Img [id number]. 60min. Rest Admin Site:IV - Right AntecubitalAdministrator:GEOVANNA Rico Stress Admin Site: IV - Right AntecubitalAdministrator: RT Buck (R)(N) STRESS DATA End Diast. Vol.53.0mlLVEDV index BSA31.0ml End Syst. Vol.4.0mlLVESV index BSA2.0ml Myocardial Mass96.0gEject. Mkuckrnv33.0% Stress Scores Regional WT0.00Summed WT0.00 Regional WM0.00Summed WM0.00 The rest and stress images show normal perfusion, normal contraction and thickening. LV Perf. Quant 17 Seg. SSS0.00 17 Seg. SRS5.00 17 Seg. SDS0.00 Stress Defect Extent (% LAD)0.00Rest Defect Extent (% LAD)1.90Rev. Defect Extent (% LAD)0.00 Stress Defect Extent (% LCX) 0.00Rest Defect Extent (% LCX)21.30Rev. Defect Extent (% LCX)0.00 Stress Defect Extent (% RCA)0.00Rest Defect Extent (% RCA)0.00Rev. Defect Extent (% RCA)0.00 Stress Defect Extent (% SHIVA)0.00Rest Defect Extent (% SHIVA)7.20Rev. Defect Extent (% SHIVA)0.00 Other Information Quality:Average Risk Assessment: Low Risk Conclusion 1. No evidence of EKG changes with stress testing. 2. Normal perfusion at stress/rest. 3. Low risk study. 4. EF > 60%. Signed by : Levi Sorto, Electronically Approved : 03/24/2021 11:50:32
== END ==
LOC: NM 08:32
PROVIDERS: ATTEND Internal Medicine Cardiovascular Disease
DX: R06.09 Other forms of dyspnea (principal); I10 Essential (primary) hypertension; E11.9 Type 2 diabetes mellitus without complications
CPT/HCPCS: 78452; 93017; A9500; J2785

== ENCOUNTER → 2021-05-11 | Outpatient (CLI) | payer MEDICARE, BC ==
[~2021-05-11] MED LIST changes: -REGADENOSON 0.4 MG/5 ML DISP.SYRIN. IV ONE
--- NOTE | 2021-05-11 12:57 | RAD ---
MRI BRAIN WO History:Reason: ESSENTIAL TREMOR / Spl. Instructions: / History: Hx STROKE Technique: Multiplanar, multi sequential MR imaging was performed of the brain without contrast. Comparison: May 30, 2020 Findings: No acute infarct. No intracranial hemorrhage. No mass effect. No hydrocephalus. Chronic left inferior cerebellar infarct. Gradient hypointensity within the right parietal lobe, like ly prior microhemorrhage. Left frontal paramedian developmental venous anomaly. Mild foci of FLAIR hyperintensity within the hemispheric white matter, likely within normal range for age. Imaged orbits are unremarkable. Mild scattered previous sinus mucosal thickening. Mastoid air cells a re clear. Impression: 1. No acute intracranial abnormality. 2. Chronic left inferior cerebellar infarct. Electronically signed by: Cristofer Ramos DO (05/11/2021 12:54 PM) [id number]
== END ==
LOC: MRI 11:08
PROVIDERS: ATTEND Nurse Practitioner Family
DX: I63.9 Cerebral infarction, unspecified (principal); G25.0 Essential tremor; G25.9 Extrapyramidal and movement disorder, unspecified; Z86.73 Personal history of transient ischemic attack (TIA), and cerebral infarction without residual deficits
CPT/HCPCS: 70551

== ENCOUNTER → 2021-09-26 | Outpatient (CLI) | payer MEDICARE, BC ==
--- NOTE | 2021-09-28 12:12 | CARD ---
MR#: [id number] Date of Study: 09/26/2021 Ordering Physician: DALLAS CORRAL, Referring Physician: DALLAS CORRAL, Tech: Iliana Yeung [facility] APPROVED REPORT EXAM: Two-dimensional and M-mode echocardiogram with Doppler and color Doppler. Other Information Quality : AverageHR: 63bpm INDICATION Hypertension/HCVD Ctyptogenic RISK FACTORS Hyperlipidemia Diabetes 2D DIMENSIONS RVDd3.1 (2.9-3.5cm)Left Atrium(2D)3.0 (1.6-4.0cm) IVSd1.0 (0.7-1.1cm)Aortic Root(2D)2.9 (2.0-3.7cm) LVDd4.6 (3.9-5.9cm)LVOT Diameter2.1 (1.8-2.4cm) PWd0.9 (0.7-1.1cm)LVDs2.2 (2.5-4.0cm) FS (%) 39.8 %SV84.1 ml LVEF(%)67.4 (>50%) Aortic Valve AoV Peak Norberto.134.4cm/sAoV VTI34.3cm AO Peak GR.8.2mmHgLVOT Peak Norberto.109.0cm/s LVOT VTI 30.30cmAO Mean GR.4mmHg OCTAVIANO (VMAX)2.21pz8WKS (VTI)3.01cm2 AI P 1/2 Bxyw907sc Mitral Valve MV E Flncofhi702.0cm/sMV E Peak Gr.132mmHg MV DECEL TDAP791apRE A Ljtnnfzh01.5cm/s MV E Mean Gr.3mmHgMV [id number] E/A Ratio1.1MVA (PHT)3.01cm2 TDI E/Lateral E'12.7E/Medial E'14.8 Pulmonary Valve PV Peak Yyqbnunw66.9cm/sPV Peak Grad.3mmHg Tricuspid Valve TR P. Fizatuee908zf/sRAP [id number] TR Peak Gr.13nfYiUWXV09apEp Pulmonary Vein S1 Cldkdrks62.6cm/sD2 Ljraqorb70.9cm/s PVa praqxzqq486nzob LEFT VENTRICLE The left ventricle is normal size. There is normal left ventricular wall thickness. The left ventricu lar systolic function is normal and the ejection fraction is within normal range. The Ejection Fracti on is 55%. There is normal LV segmental wall motion. Transmitral Doppler flow pattern is Grade II-pse udonormal filling dynamics. RIGHT VENTRICLE The right ventricle is normal size. There is normal right ventricular wall thickness. The right ventr icular systolic function is normal. ATRIA The left atrium size is normal. The right atrium size is normal. The interatrial septum is intact wit h no evidence for an atrial septal defect or patent foramen ovale as noted on 2-D or Doppler imaging. AORTIC VALVE The aortic valve is normal in structure and function. Doppler and Color Flow revealed no significant aortic regurgitation. There is no significant aortic valvular stenosis. Calculated aortic valve area is 3.04 cm2 with maximum pressure gradient of 8 mmHg and mean pressure gradient of 4 mmHg. MITRAL VALVE The mitral valve is normal in structure and function. There is no evidence of mitral valve prolapse. There is no mitral valve stenosis. Doppler and Color-flow revealed trace to mild mitral regurgitation . TRICUSPID VALVE The tricuspid valve is normal in structure and function. Doppler and Color Flow revealed trace tricus pid regurgitation with an estimated PAP of 37 mmHg. There is no tricuspid valve stenosis. PULMONIC VALVE The pulmonic valve is not well visualized. Doppler and Color Flow revealed no pulmonic valvular regur gitation. There is no pulmonic valvular stenosis. GREAT VESSELS The aortic root is normal in size. The ascending aorta is normal in size. The IVC is normal in size a nd collapses >50% with inspiration. PERICARDIAL EFFUSION There is no evidence of significant pericardial effusion. Critical Notification Critical Value: No <Conclusion> The left ventricular systolic function is normal and the ejection fraction is within normal range. Th e Ejection Fraction is 55%. There is normal LV segmental wall motion. Signed by : Levi Sorto, Electronically Approved : 09/28/2021 12:12:05
== END ==
LOC: ECHO 12:35
PROVIDERS: ATTEND Internal Medicine Cardiovascular Disease
DX: I34.0 Nonrheumatic mitral (valve) insufficiency (principal); I10 Essential (primary) hypertension
CPT/HCPCS: 93306